=== PATIENT | male | born 1950 | race Caucasian/White ===

== ENCOUNTER 2019-09-28 08:06 | Outpatient (RCR) | payer MEDICARE | END 2019-09-28 14:04 | disposition home or self-care (01) | LOC: PREOP 08:06 | PROVIDERS: ATTEND Surgery | DX: Z01.812 Encounter for preprocedural laboratory examination (principal); Z20.828 Contact with and (suspected) exposure to other viral communicable diseases; R19.5 Other fecal abnormalities | CPT/HCPCS: 87635 ==

== ENCOUNTER 2019-10-03 10:24 | Day surgery (SDC) | payer MEDICARE ==
[~2019-10-03] VITALS: Ht 180.3 cm; Wt 90.8 kg
[2019-10-03] MEDS ORDERED: LACTATED RINGERS 1,000 ML IV ONE (10:32)
[2019-10-03] MEDS ORDERED: LACTATED RINGERS 1,000 ML IV STA (10:32)
--- NOTE | 2019-10-03 10:39 | Progress Note-Pre Operative ---
Pre-Operative Progress Note H&P Reviewed The H&P was reviewed, patient examined and no changes noted. Date Seen by Provider: Oct 03, 2019 Time Seen by Provider: 10: Date H&P Reviewed: Oct 03, 2019 Time H&P Reviewed: 10:30 Pre-Operative Diagnosis: cologaurd positive KADIE CLAY MD Oct 03, 2019 10:39
--- NOTE | 2019-10-03 10:40 | Discharge Inst-Surgical ---
D/C Lap Instructions-DANNA Follow Up Activity as tolerated High Fiber Diet 25g or more per day Avoid Alcohol, Caffeine, Spicy [place] and Acid foods. Drink 64 fluid oz or more of fluids per day. Symptoms to Report: Fever over 101 degree F, Nausea/Vomiting If any problems/questions: Contact your physician or go to Emergency Room KADIE CLAY MD Oct 03, 2019 10:40
[2019-10-03] MEDS ORDERED: ACETAMINOPHEN 325 MG TABLET PO PRN (10:45)
[2019-10-03] MEDS ORDERED: LIDOCAINE JELLY 2% 6 ML SYRINGE MM PRN (10:45)
[2019-10-03] MEDS ORDERED: ONDANSETRON 4 MG/2 ML (SDV) Z0FRAN IVP PRN (10:45)
[2019-10-03] MEDS ORDERED: morphine INJ 10 MG/ML 1ML (SYR OR VIAL) IVP PRN ×2 (10:45)
[2019-10-03] MEDS ORDERED: HYDROcodone/APAP 5 MG/325 MG (LORTAB) TAB PO PRN (10:45)
[2019-10-03] MEDS ORDERED: MIDAZOLAM 2 MG/2 ML (VERSED) VIAL ONE (10:50)
[2019-10-03] MEDS ORDERED: proPOfol 200 MG/20 ML (DIPRIVAN) VIAL IV ONE (10:50)
[2019-10-03 10:52] VITALS: BP 103/73
[2019-10-03] MEDS ORDERED: BROM2.5T4 PO (11:02)
[2019-10-03] MEDS ORDERED: RT-ALBUINH IH (11:02)
[2019-10-03] MEDS ORDERED: FOLI1TAB24 PO (11:03)
[2019-10-03] MEDS ORDERED: MMT17NA NS (11:03)
--- OUTSIDE RECORDS SUMMARY | 2019-10-03 11:18 | XMS REPORT | Continuity of Care Document ---
Author Organization Unknown Address Unknown Phone Unavailable Allergies There is no data. Medications There is no data. Problems Date Dx Coded Attending Type Code Diagnosis Diagnosed By 09/28/2019 KADIE CLAY MD Ot R19.5 OTHER FECAL ABNORMALITIES 09/28/2019 KADIE CLAY MD Ot Z01.81 2 ENCOUNTER FOR PREPROCEDURAL LABORATORY E 09/28/2019 KADIE CLAY MD Ot Z20.82 8 CONTACT W AND EXPOSURE TO OTH VIRAL COMM Procedures There is no data. Results Test Result Range Coronavirus SARS-CoV-2 SO 2018 - 0 12:51 Coronavirus Ab [Units/volume] in Serum Negative Negative Encounters ACCT No. Visit Date/Time Discharge Status Pt. Type Provider Facility Loc./Unit Complaint [id number] 09/28/2019 08:06:00 020 14:04:00 DIS Outpatient KADIE CLAY MD [facility] PREOP COLONOSCOPY [id number] 10/08/2019 08:00:00 P EN Preadmit IDRIS POZO APRN Via [facility] RT DYSPNEA [id number] 10/03/2019 10:24:[address] Outpatient KADIE CLAY MD [facility] [place] ENDO SCREENING/+OCCULT BLOOD IN S TOOL
[2019-10-03] MEDS ORDERED: LIDOCAINE JELLY 2% 6 ML SYRINGE ONE (11:32)
[2019-10-03 12:05] VITALS: BP 98/59
[2019-10-03 12:10] VITALS: BP 110/65
--- NOTE | 2019-10-03 12:16 | Progress Note-Post Operative ---
Post-Operative Progess Note Surgeon (s)/Issuing Operator (s) Surgeon KADIE CLAY MD Issuing Operator: none Pre-Operative Diagnosis cologaurd positive Post-Operative Diagnosis chronic stage 2 ext and int hemorrhoids, large sessile polyp ascending colon(1cm). Procedure & Operative Findings Date of Procedure 10/03/19 Procedure Performed/Findings Colonoscopy with bx and submucosal injection. Anesthesia Type mac Estimated Blood Loss Estimated blood loss (mL): minimal Specimens/Packing Specimens Removed asc colon polyp KADIE CLAY MD Oct 03, 2019 12:16
[2019-10-03 12:35] VITALS: BP 124/88
[2019-10-03 12:50] VITALS: BP 124/88
--- NOTE | 2019-10-03 13:26 | Anesthesia-General Post-Op ---
MAC Patient Condition Mental Status/LOC: Same as Preop Cardiovascular: Satisfactory Nausea/Vomiting: Absent Respiratory: Satisfactory Pain: Controlled Complications: Absent Post Op Complications Complications None Follow Up Care/Instructions Patient Instructions None needed. Anesthesiology Discharge Order Discharge Order Patient was seen after the procedure and he was doing well, no complaints, stable vital signs, no apparent adverse anesthesia problems. REJI CHAND DO Oct 03, 2019 13:26
--- NOTE | 2019-10-03 20:34 | OPERATIVE REPORT ---
DATE OF SERVICE: 10/03/2019 ATTENDING PRIMARY CARE PHYSICIAN: Christophe Smart MD PREOPERATIVE DIAGNOSIS: Positive Cologuard test. POSTOPERATIVE DIAGNOSIS: Chronic stage II external and internal hemorrhoids, large sessile polyp of the ascending colon approximately 1 cm in size. PROCEDURE: EGD with biopsy and submucosal injection. SURGEON: Kadie Clay MD ANESTHESIA: Monitored anesthesia care. ESTIMATED BLOOD LOSS: Minimal. FINDINGS: Chronic stage II external and internal hemorrhoids, large sessile polyp of the ascending colon approximately 1 cm in size. DISPOSITION: The patient tolerated the procedure well. INDICATIONS: The patient is a 69-year-old male who was referred over to us for a positive Cologuard test. His last colonoscopy was greater than 20 years ago and reported this to be normal. He does have some risk factors including smoking 1.5 packs of cigarettes a day for the past 44 years as well as hard alcohol including 4 to 5 drinks daily. He does not report any family history of colon cancer, does not report any red blood per rectum nor any dark tarry stools. DESCRIPTION OF PROCEDURE: The patient was brought to the endoscopy suite, laid in the left lateral decubitus position. After adequate IV pain and stated medications and monitored anesthesia care, a digital rectal examination was performed. Chronic stage II external and internal hemorrhoids were identified, which were not actively edematous nor inflamed and no bleeding. Normal sphincter tone was felt and there were no palpable masses. Prostate gland was palpable and appeared normal. The endoscope was then intubated and anus and rectum gently insufflated. The endoscope was then advanced to the valves of [place] of the rectum with no polyps or any neoplasms identified. Through the sigmoid colon, no diverticulosis identified. The endoscope was then advanced through the remainder of the descending, transverse and ascending colon. At the ascending colon, a large sessile polyp was identified approximately 1 cm in size. This also seemed to be ulcerated. Multiple biopsies were taken with forceps and electrocautery with visualization of good hemostasis. We then proceeded with submucosal injection around the lesion using black ink. The endoscope was then advanced through the remainder of the ascending colon to the cecum, which appeared normal. The endoscope was then slowly withdrawn while taking a second look and suctioning of residual air with no additional findings. The patient tolerated the procedure well. We will await the biopsy results; however, due to the size and characteristics of the lesion. The lesion being greater than 1 cm and also being sessile in nature, has a 40% chance of harboring or developing into an adenocarcinoma. We will discuss these findings with him in the office and see if he would like to proceed with early followup colonoscopy versus resection of the affected portion of the colon. Job ID: [id number] DocumentID: [id number] Dictated Date: 10/03/2019 12:12:25 Battery Assembler Date: 10/03/2019 20:33:37 Dictated By: KADIE CLAY MD
== END 2019-10-03 12:50 | disposition home or self-care (01) ==
LOC: ENDO 10:24
PROVIDERS: ATTEND Surgery
DX: C18.2 Malignant neoplasm of ascending colon (principal); K64.1 Second degree hemorrhoids; F17.210 Nicotine dependence, cigarettes, uncomplicated; J44.9 Chronic obstructive pulmonary disease, unspecified; G47.33 Obstructive sleep apnea (adult) (pediatric); Z79.899 Other long term (current) drug therapy

== ENCOUNTER → 2019-10-08 | Outpatient (CLI) | payer MEDICARE ==
[~2019-10-08] MED LIST: BROM2.5T4 PO; FOLI1TAB24 PO; MMT17NA NS; RT-ALBUINH IH; RT-ALBUTEROL SULF 2.5 MG/3 ML PRE-MIX VIAL INH ONE
[2019-10-08 08:20] LABS: ABG BASE EXCESS 0.6 MMOL/L (-2.5-2.5); ABG OXYGEN SATURATION 98 % (94-100); ABG PCO2 41 MMHG (35-45); ABG PO2 83 MMHG (79-93); ABG TCO2 26.2 MMOL/L (21.0-31.0)
[2019-10-08 08:22] LABS: ALLENS TEST YES-POS; INSPIRED O2 ROOM AIR; PATIENT TEMP 36.9; VENTILATOR NO
== END ==
LOC: RT 07:34
PROVIDERS: ATTEND Nurse Practitioner Family
DX: J44.9 Chronic obstructive pulmonary disease, unspecified (principal); J30.9 Allergic rhinitis, unspecified; Z72.0 Tobacco use
CPT/HCPCS: 36600; 82805; 94060; 94726; 94729

== ENCOUNTER → 2019-10-15 | Outpatient (CLI) | payer MEDICARE ==
[~2019-10-15] MED LIST changes: +HOLD METFORMIN - RECEIVED CONTRAST 20 ML VIAL IV SCH; +IOHEXOL 350 MG/ML 100 ML (OMNIPAQUE 350) VIAL IV ONE; +NS 100 ML (IVPB) BAG IV ONE; -RT-ALBUTEROL SULF 2.5 MG/3 ML PRE-MIX VIAL INH ONE
[2019-10-15 08:26] LABS: CREATININE SERUM 0.71 MG/DL (0.60-1.30); GFR ESTIMATED > 60
[2019-10-15 08:27] LABS: BUN/CREATININE RATIO 8
--- NOTE | 2019-10-15 08:39 | Diagnostic Imaging Report ---
INDICATION: COPD. TIME OF EXAM: 8:18 AM No prior studies are available for comparison. Heart size is normal. Lungs are hyperinflated consistent with COPD. No infiltrates are identified. No effusion or pneumothorax seen. IMPRESSION: COPD. No acute feature is detected. Dictated by: Dictated on workstation # [id number]
--- NOTE | 2019-10-15 09:27 | Diagnostic Imaging Report ---
PROCEDURE: CT chest with contrast, CT abdomen and pelvis with and without contrast. TECHNIQUE: Pre and post intravenous contrast axial imaging of the abdomen and pelvis and post contrast axial imaging of the chest were performed. Auto Exposure Controls were utilized during the CT exam to meet ALARA standards for radiation dose reduction. INDICATION: Recently diagnosed colon carcinoma. COMPARISON: No prior studies are available for comparison. FINDINGS: CT CHEST: No axillary lymphadenopathy is detected. No mediastinal or hilar lymphadenopathy is detected. No pericardial or pleural fluid is detected. Significant emphysematous changes are identified throughout both lungs. No infiltrate, nodule, or mass is identified. IMPRESSION: Severe COPD. No thoracic lymphadenopathy or evidence of pulmonary metastatic disease is identified. CT ABDOMEN AND PELVIS: No discrete liver mass is detected. There are several small stones within the gallbladder. No biliary ductal dilatation is seen. The pancreas demonstrates calcification in the pancreatic head but is otherwise unremarkable. The spleen is unremarkable. The right adrenal gland is unremarkable. There is some mild nodular enlargement of the left adrenal gland. The kidneys are unremarkable. There is no hydronephrosis. The aorta is heavily calcified but non-aneurysmal. No central retroperitoneal or mesenteric lymphadenopathy is seen. The bowel loops appear to be of normal caliber. There does appear to be some questionable wall thickening involving the ascending colon. No free fluid or fluid collection is identified. The bladder is unremarkable. No pelvic lymphadenopathy is seen. The bony structures are unremarkable. IMPRESSION: 1. Cholelithiasis. 2. No evidence of abdominal or pelvic lymphadenopathy or metastatic disease. There is some questionable wall thickening of the ascending colon. No other significant abnormality is detected. Dictated by: Dictated on workstation # [id number]
== END ==
LOC: RAD 07:40
PROVIDERS: ATTEND Surgery
DX: C18.9 Malignant neoplasm of colon, unspecified (principal); J44.9 Chronic obstructive pulmonary disease, unspecified; K80.20 Calculus of gallbladder without cholecystitis without obstruction
CPT/HCPCS: 36415; 71046; 71260; 74178; 82378; 82565; 84520

== ENCOUNTER → 2019-10-18 | Outpatient (CLI) | payer MEDICARE ==
[~2019-10-18] VITALS: Ht 180 cm; Wt 83.0 kg
[~2019-10-18] MED LIST changes: +CATHETER FLUSH 10 ML SYR IV PRN; -HOLD METFORMIN - RECEIVED CONTRAST 20 ML VIAL IV SCH; -IOHEXOL 350 MG/ML 100 ML (OMNIPAQUE 350) VIAL IV ONE; -NS 100 ML (IVPB) BAG IV ONE; +REGADENOSON 0.4 MG/5 ML SYR (LEXISCAN) IV ONE
[2019-10-18 15:15] VITALS: BP 159/104
--- NOTE | 2019-10-18 15:15 | Cardiology Stress Test Report ---
Stress Test Report Type of NM Stress Test: Test Type: LEXISCAN 0.4MG/5ML Date of Procedure/Referring: Date of Procedure: Oct 18, 2019 PCP Ania Galvin Aprn Admitting Physician Christophe Smart MD Indications: Atrial fibrillation Baseline Heart Rate: 64 Baseline Blood Pressure: Blood Pressure Systolic: 159 Blood Pressure Diastolic: 104 Summary & Conclusion: Summary: The patient was brought to the stress lab after informed consent was taken. Stress test was performed according to the Lexiscan protocol. 0.4 mg of IV Lexiscan was given. Low-grade exercise was performed. Baseline EKG showed sinus rhythm at 64 BPM, blood pressure 159/104 mmHg, maximum heart rate of 81 bpm, blood pressure 181/93 mmHg. Patient did not have any chest pain, arrhythmias or ST segment changes during the stress test. 10.58 mCi of Myoview were given for rest imaging and 32.6 mCi of Myoview given for stress imaging. Transient ischemic dilatation score 1.02, EF 71 percent. Normal wall motion. Normal myocardial perfusion imaging during rest and stress. Conclusion: Pharmacological stress test was negative for ischemia. Normal LV function with no wall motion abnormalities. Normal myocardial perfusion imaging during rest and stress. Vane BHATT MD Oct 18, 2019 15:15
== END ==
LOC: CARD 08:00
PROVIDERS: ATTEND Nurse Practitioner Family
DX: I48.0 Paroxysmal atrial fibrillation (principal)
CPT/HCPCS: 78452; 93017; A9502

== ENCOUNTER 2019-12-03 05:33 | Outpatient (CLI) | payer MEDICARE ==
[~2019-12-03] VITALS: Ht 180.3 cm; Wt 90.8 kg
[~2019-12-03 05:33] MED LIST changes: -CATHETER FLUSH 10 ML SYR IV PRN; -REGADENOSON 0.4 MG/5 ML SYR (LEXISCAN) IV ONE
[2019-12-03] MEDS ORDERED: CARV12.53 PO (14:09)
[2019-12-03] MEDS ORDERED: DOXA2TAB2 PO (14:09)
[2019-12-03] MEDS ORDERED: FLUT1BLS3 IH (14:09)
[2019-12-03] MEDS ORDERED: FORM20VI IH (14:09)
== END 2019-12-03 15:05 ==
LOC: PREOP 05:33
PROVIDERS: ATTEND Surgery
DX: Z01.818 Encounter for other preprocedural examination (principal); C18.9 Malignant neoplasm of colon, unspecified; Z20.828 Contact with and (suspected) exposure to other viral communicable diseases

== ENCOUNTER 2019-12-06 11:45 | Inpatient (IN) | payer MEDICARE ==
[2019-12-06] VITALS (8 sets, daily range): BP systolic 121–150; BP diastolic 69–84
[~2019-12-06] VITALS: Ht 180.3 cm; Wt 110.3 kg
[~2019-12-06 11:45] MED LIST changes: +CARV12.53 PO; +DOXA2TAB2 PO; +FLUT1BLS3 IH; +FORM20VI IH
[2019-12-06] MEDS ORDERED: HEParin (CENTRAL IV FLUSH) 500 UNIT/5 ML SYR ONE (12:23)
[2019-12-06] MEDS ORDERED: BUP/EPI 0.5% 1:200,000 (MARCAINE) 10ML VIAL IJ ONE (12:23)
[2019-12-06] MEDS ORDERED: ceFAZolin 2 GM IV Premixed 50 ML IV ONE (13:00)
[2019-12-06] MEDS ORDERED: metroNIDAZOLE 500MG/100ML IVPB 100 ML IV ONE (13:00)
--- OUTSIDE RECORDS SUMMARY | 2019-12-06 13:06 | XMS REPORT | Continuity of Care Document ---
Author Organization Unknown Address Unknown Phone Unavailable Allergies Active Description Code Type Severity Reaction Onset Reported/Identified Relationship to Patient Clinical Status Yes No Known Allergies [id number] Drug Allergy Unknown N/A 10/03/2019 Medications There is no data. Problems Date Dx Coded Attending Type Code Diagnosis Diagnosed By 09/28/2019 KADIE CLAY MD, Ot R19.5 OTHER FECAL ABNORMALITIES 09/28/2019 KADIE CLAY MD, Ot Z01.81 2 ENCOUNTER FOR PREPROCEDURAL LABORATORY E 09/28/2019 KADIE CLAY MD, Ot Z20.82 8 CONTACT W AND EXPOSURE TO OTH VIRAL COMM 10/03/2019 KADIE CLAY MD Ot C18.2 MALIGNANT NEOPLASM OF ASCENDING COLON 10/03/2019 KADIE CLAY MD Ot F17.21 0 NICOTINE DEPENDENCE, CIGARETTES, UNCOMPL 10/03/2019 KADIE CLAY MD Ot G47.33 OBSTRUCTIVE SLEEP APNEA (ADULT) (PEDIATR 10/03/2019 KADIE CLAY MD Ot J44.9 CHRONIC OBSTRUCTIVE PULMONARY DISEASE, U 10/03/2019 KADIE CLAY MD Ot K64.1 SECOND DEGREE HEMORRHOIDS 10/03/2019 KADIE CLAY MD Ot Z79.89 9 OTHER DETENTION (CURRENT) DRUG THERAPY 10/05/2019 KADIE CLAY MD Ot C18.2 MALIGNANT NEOPLASM OF ASCENDING COLON 10/05/2019 KADIE CLAY MD Ot F17.21 0 NICOTINE DEPENDENCE, CIGARETTES, UNCOMPL 10/05/2019 KADIE CLAY MD Ot G47.33 OBSTRUCTIVE SLEEP APNEA (ADULT) (PEDIATR 10/05/2019 KADIE CLAY MD Ot J44.9 CHRONIC OBSTRUCTIVE PULMONARY DISEASE, U 10/05/2019 KADIE CLAY MD Ot K64.1 SECOND DEGREE HEMORRHOIDS 10/05/2019 KADIE CLAY MD Ot Z79.89 9 OTHER FARM SUPERVISOR (CURRENT) DRUG THERAPY 10/08/2019 KADIE CLAY MD, Ot C18.2 MALIGNANT NEOPLASM OF ASCENDING COLON 10/08/2019 KADIE CLAY MD Ot F17.21 0 NICOTINE DEPENDENCE, CIGARETTES, UNCOMPL 10/08/2019 KADIE CLAY MD Ot G47.33 OBSTRUCTIVE SLEEP APNEA (ADULT) (PEDIATR 10/08/2019 KADIE CLAY MD, Ot J44.9 CHRONIC OBSTRUCTIVE PULMONARY DISEASE, U 10/08/2019 KADIE CLAY MD Ot K64.1 SECOND DEGREE HEMORRHOIDS 10/08/2019 KADIE CLAY MD Ot Z79.89 9 OTHER FARM SUPERVISOR (CURRENT) DRUG THERAPY 10/11/2019 IDRIS POZO ASSISTANT CONSTRUCTION SUPERINTENDENT Ot J30.9 ALLERGIC RHINITIS, UNSPECIFIED 10/11/2019 JUANA POZOINE E ASSISTANT CONSTRUCTION SUPERINTENDENT Ot J44.9 CHRONIC OBSTRUCTIVE PULMONARY DISEASE, U 10/11/2019 NOHELIA IDRIS E ASSISTANT CONSTRUCTION SUPERINTENDENT Ot Z72.0 TOBACCO USE 10/15/2019 IDRIS POZO E ASSISTANT CONSTRUCTION SUPERINTENDENT Ot J30.9 ALLERGIC RHINITIS, UNSPECIFIED 10/15/2019 IDRIS POZO E ASSISTANT CONSTRUCTION SUPERINTENDENT Ot J44.9 CHRONIC OBSTRUCTIVE PULMONARY DISEASE, U 10/15/2019 JUANA POZOINE E ASSISTANT CONSTRUCTION SUPERINTENDENT Ot Z72.0 TOBACCO USE 10/15/2019 IDRIS POZO ASSISTANT CONSTRUCTION SUPERINTENDENT Ot J30.9 ALLERGIC RHINITIS, UNSPECIFIED 10/15/2019 IDRIS POZO E ASSISTANT CONSTRUCTION SUPERINTENDENT Ot J44.9 CHRONIC OBSTRUCTIVE PULMONARY DISEASE, U 10/15/2019 IDRIS POZO E ASSISTANT CONSTRUCTION SUPERINTENDENT Ot Z72.0 TOBACCO USE 10/15/2019 KADIE CLAY MD Ot C18.9 MALIGNANT NEOPLASM OF COLON, UNSPECIFIED 10/17/2019 KADIE CLAY MD Ot C18.9 MALIGNANT NEOPLASM OF COLON, UNSPECIFIED 10/17/2019 KADIE CLAY MD Ot J44.9 CHRONIC OBSTRUCTIVE PULMONARY DISEASE, U 10/17/2019 KADIE CLAY MD Ot K80.20 CALCULUS OF GALLBLADDER W/O CHOLECYSTITI 10/17/2019 IDRIS POZO ASSISTANT CONSTRUCTION SUPERINTENDENT Ot J30.9 ALLERGIC RHINITIS, UNSPECIFIED 10/17/2019 JUANA POZOINE E ASSISTANT CONSTRUCTION SUPERINTENDENT Ot J44.9 CHRONIC OBSTRUCTIVE PULMONARY DISEASE, U 10/17/2019 IDRIS POZO E ASSISTANT CONSTRUCTION SUPERINTENDENT Ot Z72.0 TOBACCO USE 10/17/2019 KADIE CLAY MD Ot C18.9 MALIGNANT NEOPLASM OF COLON, UNSPECIFIED 10/17/2019 KADIE CLAY MD Ot J44.9 CHRONIC OBSTRUCTIVE PULMONARY DISEASE, U 10/17/2019 KADIE CLAY MD Ot K80.20 CALCULUS OF GALLBLADDER W/O CHOLECYSTITI 10/18/2019 IDRIS POZO ASSISTANT CONSTRUCTION SUPERINTENDENT Ot J30.9 ALLERGIC RHINITIS, UNSPECIFIED 10/18/2019 IDRIS POZO ASSISTANT CONSTRUCTION SUPERINTENDENT Ot J44.9 CHRONIC OBSTRUCTIVE PULMONARY DISEASE, U 10/18/2019 IDRIS POZO ASSISTANT CONSTRUCTION SUPERINTENDENT Ot Z72.0 TOBACCO USE 10/18/2019 KADIE CLAY MD Ot C18.9 MALIGNANT NEOPLASM OF COLON, UNSPECIFIED 10/18/2019 KADIE CLAY MD Ot J44.9 CHRONIC OBSTRUCTIVE PULMONARY DISEASE, U 10/18/2019 KADIE CLAY MD Ot K80.20 CALCULUS OF GALLBLADDER W/O CHOLECYSTITI 10/18/2019 IDRIS POZO ASSISTANT CONSTRUCTION SUPERINTENDENT Ot J30.9 ALLERGIC RHINITIS, UNSPECIFIED 10/18/2019 IDRIS POZO ASSISTANT CONSTRUCTION SUPERINTENDENT Ot J44.9 CHRONIC OBSTRUCTIVE PULMONARY DISEASE, U 10/18/2019 IDRIS POZO ASSISTANT CONSTRUCTION SUPERINTENDENT Ot Z72.0 TOBACCO USE 10/18/2019 KADIE CLAY MD Ot C18.9 MALIGNANT NEOPLASM OF COLON, UNSPECIFIED 10/18/2019 KADIE CLAY MD Ot J44.9 CHRONIC OBSTRUCTIVE PULMONARY DISEASE, U 10/18/2019 KADIE CLAY MD Ot K80.20 CALCULUS OF GALLBLADDER W/O CHOLECYSTITI 10/21/2019 AURE FRYE APRN Ot I48.0 PAROXYSMAL ATRIAL FIBRILLATION 11/06/2019 IDRIS POZO ASSISTANT CONSTRUCTION SUPERINTENDENT Ot J30.9 ALLERGIC RHINITIS, UNSPECIFIED 11/06/2019 IDRIS POZO ASSISTANT CONSTRUCTION SUPERINTENDENT Ot J44.9 CHRONIC OBSTRUCTIVE PULMONARY DISEASE, U 11/06/2019 IDRIS POZO ASSISTANT CONSTRUCTION SUPERINTENDENT Ot Z72.0 TOBACCO USE 11/07/2019 KADIE CLAY MD Ot C18.9 MALIGNANT NEOPLASM OF COLON, UNSPECIFIED 11/07/2019 KADIE CLAY MD Ot J44.9 CHRONIC OBSTRUCTIVE PULMONARY DISEASE, U 11/07/2019 KADIE CLAY MD Ot K80.20 CALCULUS OF GALLBLADDER W/O CHOLECYSTITI 11/09/2019 MELVAAURE APRN Ot I48.0 PAROXYSMAL ATRIAL FIBRILLATION 12/05/2019 KADIE CLAY MD Ot C18.9 MALIGNANT NEOPLASM OF COLON, UNSPECIFIED 12/05/2019 KADIE CLAY MD Ot Z01.81 8 ENCOUNTER FOR OTHER PREPROCEDURAL EXAMIN 12/05/2019 KADIE CLAY MD Ot Z20.82 8 CONTACT W AND EXPOSURE TO OTH VIRAL COMM Procedures There is no data. Results Test Result Range Coronavirus SARS-CoV-2 SO 2018 - 0 12:51 Coronavirus Ab [Units/volume] in Serum Negative Negative Arterial blood gas measurement - 0 08:14 Blood pCO2 41 mm[Hg] 35-45 Blood pO2 83 mm[Hg] 79-93 Arterial blood bicarbonate measurement (moles/volume) 25 mmol/L 23-27 Arterial blood base excess by calculation 0.6 mmol /L -2.5-2.5 Arterial blood oxygen saturation measurement 98 % 94-100 * Inhaled oxygen flow rate ROOM AIR NRG Arterial blood pH measurement with patient temperature correction 7.40 7.37-7.43 Arterial blood carbon dioxide, total measurement (mole s/volume) 26.2 mmol/L 21.0-31.0 Body site LT RAD NRG Assessment of wrist artery patency prior to arterial p uncture YES-POS NRG Setting of ventilation mode NO NR G Measurement of body temperature 36.9 NRG [id number] - 10/15/19 07:56 Serum or plasma urea nitrogen measurement (mass/volume ) 6 mg/dL 7-18 Serum or plasma creatinine measurement (mass/volume) 0.71 mg/dL 0.60-1.30 Serum or plasma urea nitrogen/creatinine mass ratio 8 NRG Serum or plasma creatinine measurement w ith calculation of estimated glomerular filtration rate > NRG Serum ragweed IgE antibody assay - 10/14 07:56 [id number] <1.7 0.0-5.0 Encounters ACCT No. Visit Date/Time Discharge Status Pt. Type Provider Facility Loc./Unit Complaint [id number] 12/03/2019 05:33:00 020 15:05:00 DIS Outpatient KADIE CLAY MD Via [facility] PREOP COLON CANCER [id number] 10/18/2019 08:00:00 23:59:59 CLS Outpatient AURE FRYE APRN Via [facility] CARD AFIB [id number] 10/15/2019 07:40:00 23:59:59 CLS Outpatient KADIE CLAY MD Via [facility] RAD COLON CA,COPD [id number] 10/08/2019 07:34:00 23:59:59 CLS Outpatient IDRIS POZO APRN [facility] RT DYSPNEA [id number] 10/03/2019 10:24:00 12:50:00 DIS Outpatient KADIE CLAY MD Via [facility] ENDO SCREENING/+OCCULT BLOOD IN STOOL [id number] 09/28/2019 08:06:00 14:04:00 DIS Outpatient KADIE CLAY MD [facility] PREOP COLONOSCOPY [id number] 12/06/2019 11:45:00 P EN Preadmit KADIE CLAY MD [facility]
[2019-12-06] MEDS ORDERED: RT-ALBUTEROL SULF 2.5 MG/3 ML PRE-MIX VIAL INH ONE (13:15)
[2019-12-06] MEDS: LACTATED RINGERS 1,000 ML IV PRN ×2 (13:24→17:02)
[2019-12-06 13:36] LABS: BASOPHILS % (AUTO) 1 % (0-10); EOSINOPHILS # (AUTO) 0.1 10^3/uL (0.0-0.3); EOSINOPHILS % (AUTO) 2 % (0-10); HEMATOCRIT 50 % (40-54); LYMPHOCYTES # (AUTO) 1.2 X 10^3 (1.0-4.0); LYMPHOCYTES % (AUTO) 19 % (12-44); MEAN CORPUSCULAR HEMOGLOBIN 37 PG (25-34); MEAN CORPUSCULAR HGB CONC 34 G/DL (32-36); MEAN CORPUSCULAR VOLUME 107 FL (80-99); MEAN PLATELET VOLUME 9.8 FL (7.4-10.4); MONOCYTES # (AUTO) 0.6 X 10^3 (0.0-1.0); MONOCYTES % (AUTO) 9 % (0-12); NEUTROPHILS # (AUTO) 4.4 X 10^3 (1.8-7.8); NEUTROPHILS % (AUTO) 69 % (42-75); PLATELET COUNT 146 10^3/uL (130-400); RED CELL DISTRIBUTION WIDTH 13.9 % (10.0-14.5); WHITE BLOOD COUNT 6.3 10^3/uL (4.3-11.0)
[2019-12-06] MEDS ORDERED: LORA-404 PO (13:49)
[2019-12-06] MEDS ORDERED: NS IV 1000 ML 1,000 ML IV SCH (14:38)
--- NOTE | 2019-12-06 14:38 | Progress Note-Pre Operative ---
Pre-Operative Progress Note H&P Reviewed The H&P was reviewed, patient examined and no changes noted. Date Seen by Provider: Dec 06, 2019 Time Seen by Provider: 14:00 Date H&P Reviewed: Dec 06, 2019 Time H&P Reviewed: 14:00 Pre-Operative Diagnosis: right colon cancer KADIE CLAY MD Dec 06, 2019 14:38
[2019-12-06] MEDS ORDERED: diphenhydrAMINE 50 MG/ML INJ (BENADRYL) IVP PRN (14:45)
[2019-12-06] MEDS ORDERED: diphenhydrAMINE 50 MG/ML INJ (BENADRYL) IV PRN (14:45)
[2019-12-06] MEDS ORDERED: METOCLOPRAMIDE INJ 10 MG/2 ML (REGLAN) IV PRN (14:45)
[2019-12-06] MEDS ORDERED: oxyCODONE 5 MG/5 ML ORAL SOLN (roxiCODONE) 5 ML UDC PO PRN (14:45)
[2019-12-06] MEDS ORDERED: ONDANSETRON 4 MG/2 ML (SDV) Z0FRAN IV PRN (14:45)
[2019-12-06] MEDS ORDERED: NALOXONE 0.4 MG/ML 1 ML (NARCAN) VIAL IV PRN (14:45)
[2019-12-06] MEDS ORDERED: ONDANSETRON 4 MG/2 ML (SDV) Z0FRAN ONE (16:04)
[2019-12-06] MEDS ORDERED: fentaNYL INJECTION 100 MCG/2 ML AMP ONE ×2 (16:04→18:21)
[2019-12-06] MEDS ORDERED: LIDOCAINE PF 2% 5 ML (XYLOCAINE) VIAL ONE (16:04)
[2019-12-06] MEDS ORDERED: proPOfol 200 MG/20 ML (DIPRIVAN) VIAL IV ONE (16:04)
[2019-12-06] MEDS ORDERED: ROCURONIUM 10 MG/ML 5 ML SYRINGE IV ONE ×2 (16:04→17:02)
[2019-12-06] MEDS ORDERED: MIDAZOLAM 2 MG/2 ML (VERSED) VIAL ONE (16:05)
[2019-12-06] MEDS ORDERED: SEVOFLURANE (ULTANE) 15 ML INHAL SOLN ONE ×7 (17:03→18:44)
--- NOTE | 2019-12-06 18:37 | Progress Note-Post Operative ---
Post-Operative Progess Note Surgeon (s)/Nut Grinder (s) Surgeon KADIE CLAY MD Nut Grinder: manjula stuart CERTIFIED WELLNESS PROGRAM COORDINATOR Pre-Operative Diagnosis right colon cancer Post-Operative Diagnosis same Procedure & Operative Findings Date of Procedure 12/06/19 Procedure Performed/Findings laparoscopic right hemicolectomy. left subclavian central venous catheter. Anesthesia Type get Estimated Blood Loss Estimated blood loss (mL): minimal Specimens/Packing Specimens Removed right colon KADIE CLAY MD Dec 06, 2019 18:37
[2019-12-06] MEDS ORDERED: ONDANSETRON 4 MG/2 ML (SDV) Z0FRAN IVP PRN (18:45)
[2019-12-06] MEDS ORDERED: MEPERIDINE (DEMEROL) INJ 50 MG/ML IVP ONE (18:45)
[2019-12-06] MEDS ORDERED: morphine INJ 10 MG/ML 1ML (SYR OR VIAL) IVP ONE (18:45)
[2019-12-06] MEDS ORDERED: morphine INJ 10 MG/ML 1ML (SYR OR VIAL) ONE (19:02)
--- NOTE | 2019-12-06 19:08 | Diagnostic Imaging Report ---
INDICATION: Central line placement. COMPARISON: 10/15/2019. EXAMINATION: Single view of the chest was obtained. FINDINGS: A left subclavian central venous catheter is in place. There is no pneumothorax. Tip of the catheter is in the SVC. Basilar infiltrates are present. IMPRESSION: Well-positioned central venous catheter. No pneumothorax. Dictated by: Dictated on workstation # [id number]
--- NOTE | 2019-12-06 19:37 | NUR ---
DESHAWN GIRALDO admitted to room 408-1, with an admitting diagnosis of POST OP HEMICOLECTOMY, on 12/06/19 from [facility] via [facility], accompanied by STAFF. DESHAWN GIRALDO introduced to surroundings, call light, bed controls, phone, TV, temperature control, lights, meal times, smoking policy, visitor policy, side rail policy, bathrooms and showers. Patient Rights given to patient in the handbook.DESHAWN GIRALDO verbalizes understanding that [facility] is not responsible for the loss or damage to any personal effects or valuables that are kept in the patients posession during their hospitalization.
[2019-12-06] MEDS: METOCLOPRAMIDE INJ 10 MG/2 ML (REGLAN) IVP SCH ×2 (20:21→23:49)
[2019-12-06] MEDS: ONDANSETRON 4 MG/2 ML (SDV) Z0FRAN IVP SCH ×2 (20:21→23:49)
[2019-12-06] MEDS: 1/2 NS W/KCL 20 MEQ/L 1,000 ML IV SCH (20:21)
[2019-12-06] MEDS: fentaNYL INJECTION 1,000 MCG in NS (IVPB) 80 ML IV SCH (20:32)
[2019-12-06] MEDS: ENOXAPARIN 30 MG/0.3 ML (LOVENOX) SYR SC SCH (20:53)
[2019-12-06] MEDS: RT-ALBUTEROL SULF 2.5 MG/3 ML PRE-MIX VIAL INH SCH (21:12)
[2019-12-06] MEDS: ceFAZolin 2 GM IV Premixed 50 ML IV SCH (23:49)
[2019-12-06] MEDS: PANTOPRAZOLE 40 MG (PROTONIX) VIAL IV SCH (23:49)
[2019-12-06] MEDS: metroNIDAZOLE 500MG/100ML IVPB 100 ML IV SCH (23:49)
[2019-12-07] VITALS: BP 119/73
[2019-12-07] MEDS: RT-ALBUTEROL SULF 2.5 MG/3 ML PRE-MIX VIAL INH SCH ×6 (02:09→21:13)
[2019-12-07 04:00] VITALS: BP 129/79
[2019-12-07] MEDS: 1/2 NS W/KCL 20 MEQ/L 1,000 ML IV SCH ×2 (05:34→11:50)
[2019-12-07 05:35] LABS: HEMOGLOBIN 15.6 G/DL (13.3-17.7); MEAN PLATELET VOLUME 10.1 FL (7.4-10.4); WHITE BLOOD COUNT 10.9 10^3/uL (4.3-11.0)
[2019-12-07] MEDS: ONDANSETRON 4 MG/2 ML (SDV) Z0FRAN IVP SCH ×2 (05:39→12:32)
[2019-12-07] MEDS: METOCLOPRAMIDE INJ 10 MG/2 ML (REGLAN) IVP SCH ×2 (05:39→12:31)
--- NOTE | 2019-12-07 05:43 | OPERATIVE REPORT ---
DATE OF SERVICE: 12/06/2019 ATTENDING PRIMARY CARE PHYSICIAN: Christophe Smart MD PREOPERATIVE DIAGNOSIS: Right colon cancer. POSTOPERATIVE DIAGNOSIS: Right colon cancer. PROCEDURE: Laparoscopic right hemicolectomy, placement of left subclavian central venous catheter. SURGEON: Attila Duarte MD BREAKER OFF: Ren Campa APRN ANESTHESIA: General endotracheal. ESTIMATED BLOOD LOSS: 150 mL. FINDINGS: Markings from previous colonoscopy appear to coincide with a tumor at the hepatic flexure. DISPOSITION: The patient tolerated the procedure well. INDICATIONS: The patient is a 69-year-old male who was referred over to us for a positive Cologuard test. His last colonoscopy was greater than 20 years ago. He reports that he does have some constipation as well. He underwent a colonoscopy on 10/03/2019 and was found to have a large sessile polyp greater than 1 cm in size and this was biopsied and did come back as at least intramucosal carcinoma. DESCRIPTION OF PROCEDURE: The patient was brought to the operating room, laid supine on the table. After adequate IV pain and sedative medications and general endotracheal intubation, the chest and neck were prepped and draped in standard surgical fashion. Left subclavian vein was then cannulated with drawing of venous blood. A guidewire was then inserted without any resistance. A skin incision was then made using 11 blade and a tract was then created using a venous dilator and through this opening, a triple lumen central venous catheter was placed over the guidewire using the Seldinger technique. The catheter was then sutured to the skin using interrupted 3-0 silk suture. The catheter was then cleaned and covered with Op-Site. The abdomen was then prepped and draped in standard surgical fashion. The patient was placed in a modified lithotomy position. The left upper abdominal quadrant was then anesthetized using 0.5% Marcaine with epinephrine and a transverse skin incision made using a 15 blade. An 0 silk suture was applied to the medial aspect of the incision for retraction and Veress needle inserted with low opening pressure of 0 mmHg. The abdomen was then insufflated to 15 mmHg pressure. The Veress needle removed and a 5 mm XL trocar placed followed by a 5 mm 45-degree angle laparoscope visualizing the peritoneal cavity. A 4-quadrant abdominal exploration was performed. The submucosal injection markings from the previous colonoscopy revealed the lesion at approximately the hepatic flexure. We then proceeded to place a supraumbilical 10 mm port after the skin and peritoneal lining were anesthetized using 0.5% Marcaine with epinephrine and a vertical skin incision made using a 15 blade. Two right lower abdominal quadrant 5 mm ports were placed. The patient was then placed in Trendelenburg position as well as plane right side up, left side down. We then proceeded with medial to lateral dissection of the right colonic mesentery using the Sonicision with visualization of good hemostasis. A wide wedge of mesentery was taken. We proceeded into this manner until we were approximately at the mid transverse colon. The duodenum was identified and spared throughout the process. Good hemostasis was also observed. The omentum was then scored in half using the Sonicision and the gastrocolic omentum was opened as well in a similar manner as well as the hepatic flexure connective tissue fibers using the Sonicision with visualization of good hemostasis. The entire right side of the colon was free and including the terminal ileum. The supraumbilical skin incision was then extended and the right colon was brought out. We then proceeded with stapling and transection of the terminal ileum as well as the transverse colon using a ALEXANDR-75 mm stapler. We then proceeded with [id number] anastomosis. The open end was then temporarily closed using interrupted 3-0 silk sutures and the same stapler was used to staple the end with visualization of good hemostasis. The mesentery was then reapproximated using 3-0 Vicryl running suture. The colon and ileum were then placed back into the peritoneal cavity. Pneumo insufflation was achieved again and the abdomen copiously irrigated and suctioned out with visualization of good hemostasis. A 19-Palestinian Juan-Godfrey drain was then placed in the right pericolic gutter and near the anastomosis. The drain was brought out the one on the right lower abdominal quadrant port and sutured the skin using 3-0 nylon suture. The fascia to the supraumbilical incision was then closed using a #1 looped PDS suture starting superiorly and inferiorly and tied in the middle. The remaining ports removed and all skin incisions were closed using 4-0 Monocryl running subcuticular sutures. Wounds were then cleaned and covered with Dermabond. The patient tolerated the procedure well. We will admit him to the general surgical floor and proceed with a PIPE LINER for pain control as well as DVT prophylaxis with early ambulation, calf SCDs as well as Lovenox injections. Once he does have bowel function, we will start a clear liquid diet and advance as tolerated. Job ID: [id number] DocumentID: [id number] Dictated Date: 12/06/2019 18:34:35 [employer] Coxsw[employer] Date: 12/07/2019 05:42:31 Dictated By: ATTILA DUARTE MD
[2019-12-07 05:50] LABS: BUN/CREATININE RATIO 15; CALCIUM 8.6 MG/DL (8.5-10.1); CARBON DIOXIDE 19 MMOL/L (21-32); CHLORIDE 105 MMOL/L (98-107); CREATININE SERUM 0.67 MG/DL (0.60-1.30); GFR ESTIMATED > 60; GLUCOSE 84 MG/DL (70-105); SODIUM 138 MMOL/L (135-145)
[2019-12-07] MEDS: ceFAZolin 2 GM IV Premixed 50 ML IV SCH ×2 (06:39→14:49)
[2019-12-07 08:16] VITALS: BP 154/72
[2019-12-07] MEDS: SENNA W/DOCUSATE (SENOKOT S) TABLET PO SCH (08:44)
[2019-12-07] MEDS: metroNIDAZOLE 500MG/100ML IVPB 100 ML IV SCH ×2 (08:44→15:58)
[2019-12-07] MEDS: ENOXAPARIN 30 MG/0.3 ML (LOVENOX) SYR SC SCH ×2 (08:44→20:42)
--- NOTE | 2019-12-07 10:00 | Consultation - Hospitalist ---
HPI History of Present Illness: HPI/Chief Complaint Pt is a 69yoCM with a PMH of HTN and COPD who was admitted for hemicolectomy due to colon cancer. He underwent surgery yesterday and I am consulted for medical management. He is hard of hearing but what he was able to answer he states he's hungry but having pain. He is using his ACCOUNT GENERAL MANAGER and states it help. Otherwise he has not complaints. Source: patient Date Seen 12/07/19 Attending Physician Attila Duarte MD PCP Christophe Smart MD Referring Physician Dr Duarte Date of Admission Dec 06, 2019 at 12:14 Home Medications & Allergies Home Medications Reviewed patient Home Medication Reconciliation performed by pharmacy medication reconciliations battery technician and/or nursing. Patients Allergies have been reviewed. Allergies Allergies Coded Allergies No Known Allergies (Unverified Allergy, Unknown, 10/03/19) Past Dleoqxm-Ichvfr-Ovnxsm Hx Past Med/Social Hx: Reviewed Nursing Past Med/Soc Hx Patient Social History Alcohol Use: Regular Use Number of Drinks Today: 0 Alcohol Beverage of Choice: Whiskey Recreational Drug Use: No Smoking Status: Current Everyday Smoker Type Used: Cigarettes 2nd Hand Smoke Exposure: No Physical Abuse Screen: No Sexual Abuse: No Recent Foreign Travel: No Contact w/other who traveled: No Recent Hopitalizations: No Recent Infectious Disease Expo: No Immunizations Up To Date Date of Influenza Vaccine: Jan 23, 2019 Seasonal Allergies Seasonal Allergies: No Past Medical History Surgeries: Orthopedic Currently Using CPAP: Yes Currently Using BIPAP: No Cardiac: Atrial Fibrillation Cancer: Colon History of Blood Disorders: No Family History Reviewed Nursing Family Hx Patient reports no known family medical history. No Pertinent Family Hx Review of Systems Constitutional: no symptoms reported EENTM: no symptoms reported Respiratory: No short of breath Cardiovascular: No chest pain Gastrointestinal: abdominal pain Physical Exam Physical Exam Vital Signs Vital Signs - First Documented Capillary Refill : Less Than 3 SecondsLess Than 3 Seconds Height, Weight, BMI Height: '" Weight: lbs. oz. kg; 27.93 BMI Method: General Appearance: No Apparent Distress, WD/WN HEENT: PERRL/EOMI, Moist Mucous Membranes; No Scleral Icterus (L), No Scleral Icterus (R) Respiratory: Lungs Clear, No Accessory Muscle Use, No Respiratory Distress Cardiovascular: Regular Rate, Rhythm, No Murmur Gastrointestinal: Abnormal Bowel Sounds (quiet), Other (FRANK drain with sangui nous fluid in it and ooze on surgical dressing) Extremity: Normal Capillary Refill, No Calf Tenderness, No Pedal Edema Neurologic/Psychiatric: Alert, Oriented x3, Normal Mood/Affect Results Results/Procedures Labs Laboratory Tests 12/06/19 13:25 12/07/19 04:55 Patient resulted labs reviewed. Assessment/Plan Assessment and Plan Assess & Plan/Chief Complaint Colon cancer s/p hemicolectomy ACCOUNT GENERAL MANAGER for pain control Management per primary HTN BP trending up, will resume home meds when able to PO COPD Continue home inhalers DVT ppx: Lovenox Will round prn Clinical Quality Measures DVT/VTE Risk/Contraindication: Risk Factor Score Per Nursin RFS Level Per Nursing on Admit: 4+=Very High DAYA PASTOR MD Dec 07, 2019 10:00
--- NOTE | 2019-12-07 10:17 | Progress Note ---
Subjective Date Seen by a Provider: Dec 07, 2019 Time Seen by a Provider: 10:00 Subjective/Events-last exam doing well. pain controlled. no SOB. Objective Exam Vital Signs Date Time Temp Pulse Resp B/P (MAP) Pulse Ox O2 Delivery O2 Flow Rate FiO2 12/07/19 09:01 OxyMask 2.00 12/07/19 08:16 36.3 80 18 154/72 (99) 95 Nasal Cannula 2.00 12/07/19 07:10 95 Nasal Cannula 2.00 12/07/19 05:45 18 12/07/19 04:00 37.2 74 22 129/79 (96) 94 OxyMask 3.00 12/07/19 02:10 94 OxyMask 1.00 12/07/19 00:00 36.6 77 20 119/73 (88) 98 OxyMask 3.00 12/06/19 22:54 100 OxyMask 3.00 12/06/19 21:12 100 OxyMask 3.00 12/06/19 20:32 18 12/06/19 20:24 35.6 63 17 134/76 (95) 92 OxyMask 3.00 12/06/19 20:00 OxyMask 2.00 12/06/19 19:40 OxyMask 2.00 12/06/19 19:25 36.3 26 121/74 (90) 96 OxyMask 2 12/06/19 19:25 OxyMask 2 12/06/19 19:20 22 91 Room Air 12/06/19 19:20 Room Air 12/06/19 19:10 23 144/69 (94) 98 OxyMask 1 12/06/19 19:05 OxyMask 2 12/06/19 19:00 22 150/80 (103) 98 OxyMask 6 12/06/19 18:50 OxyMask 6 12/06/19 18:50 24 123/80 (94) 99 OxyMask 6 12/06/19 18:40 24 137/77 (97) 100 OxyMask 6 12/06/19 18:36 OxyMask 6 12/06/19 18:36 36.4 24 135/84 (101) 99 OxyMask 6 12/06/19 13:30 36.3 68 22 136/84 97 Room Air 12/06/19 13:30 36.3 68 22 136/84 (101) 97 Room Air I & O 12/07/19 07:00 Intake Total 2300 ml Output Total 1180 ml Balance 1120 ml Capillary Refill : Less Than 3 SecondsLess Than 3 Seconds General Appearance: No Apparent Distress HEENT: PERRL/EOMI Neck: Full Range of Motion Respiratory: Chest Non Tender, Rhonci, Wheezing Cardiovascular: Regular Rate, Rhythm Gastrointestinal: soft, tenderness, other (inc clean/dry) Extremity: Normal Capillary Refill Neurologic/Psychiatric: Alert, Oriented x3 Skin: Normal Color Lymphatic: No Adenopathy Results Lab Laboratory Tests 12/06/19 13:25: White Blood Count 6.3, Red Blood Count 4.61, Hemoglobin 17.0, Hematocrit 50, Mean Corpuscular Volume 107H, Mean Corpuscular Hemoglobin 37H, Mean Corpuscular Hemoglobin Concent 34, Red Cell Distribution Width 13.9, Platelet Count 146, Mean Platelet Volume 9.8, Neutrophils (%) (Auto) 69, Lymphocytes (%) (Auto) 19, Monocytes (%) (Auto) 9, Eosinophils (%) (Auto) 2, Basophils (%) (Auto) 1, Neutrophils # (Auto) 4.4, Lymphocytes # (Auto) 1.2, Monocytes # (Auto) 0.6, Eosinophils # (Auto) 0.1, Basophils # (Auto) 0.0 12/06/19 20:29: Glucometer 97 12/06/19 23:43: Glucometer 93 12/07/19 04:06: Glucometer 97 12/07/19 04:55: White Blood Count 10.9, Red Blood Count 4.05L, Hemoglobin 15.6, Hematocrit 44, Mean Corpuscular Volume 108H, Mean Corpuscular Hemoglobin 39H, Mean Corpuscular Hemoglobin Concent 36, Red Cell Distribution Width 14.0, Platelet Count 158, Mean Platelet Volume 10.1, Sodium Level 138, Potassium Level 5.0, Chloride Level 105, Carbon Dioxide Level 19L, Anion Gap 14, Blood Urea Nitrogen 10, Creatinine 0.67, Estimat Glomerular Filtration Rate > 60, BUN/Creatinine Ratio 15, Glucose Level 84, Calcium Level 8.6 12/07/19 09:07: Glucometer 101 Assessment/Plan Assessment/Plan Assess & Plan/Chief Complaint s/p lap right hemicolectomy. ambulate. IS and breathing tx. await bowel fxn. Clinical Quality Measures DVT/VTE Risk/Contraindication: Risk Factor Score Per Nursin RFS Level Per Nursing on Admit: 4+=Very High KADIE CLAY MD Dec 07, 2019 10:17
--- NOTE | 2019-12-07 10:47 | Anesthesia-General Post-Op ---
General Patient Condition Mental Status/LOC: Same as Preop Cardiovascular: Satisfactory Nausea/Vomiting: Absent Respiratory: Satisfactory Pain: Controlled (Abd. Pain which is to be expected) Complications: Absent Post Op Complications Complications None Follow Up Care/Instructions Patient Instructions None needed. Anesthesia/Patient Condition Patient Condition Patient is doing well, C/O abd pain which is to be expected, stable vital signs, no apparent adverse anesthesia problems. REJI CHAND DO Dec 07, 2019 10:47
[2019-12-07] MEDS: NICOTINE 21 MG (NICODERM) PATCH TD SCH (11:10)
[2019-12-07] MEDS: oxyCODONE/APAP 5/325MG (PERCOCET 5) TABLET PO PRN ×2 (11:10→18:50)
[2019-12-07 11:40] VITALS: BP 128/74
[2019-12-07] MEDS ORDERED: HYDR-3817 PO (12:46)
--- NOTE | 2019-12-07 12:46 | Discharge Inst-Surgical ---
D/C Lap Instructions-DANNA New, Converted, or Re-Newed RX: RX on Chart Follow Up Appt in 2 weeks Activity as tolerated No driving for 24 hours No driving while on pain medications Incentive Spirometry use every 2 hours while awake High Fiber Diet 25g or more per day Avoid Alcohol, Caffeine, Spicy [place] and Acid foods. Drink 64 fluid oz or more of fluids per day. Symptoms to Report: Fever over 101 degree F, Nausea/Vomiting If any problems/questions: Contact your physician or go to Emergency Room KADIE CLAY MD Dec 07, 2019 12:46
[2019-12-07] MEDS ORDERED: METOCLOPRAMIDE INJ 10 MG/2 ML (REGLAN) IVP PRN (14:45)
[2019-12-07] MEDS ORDERED: NON-FORMULARY MEDICATION 1 EA EA (Fluticasone/Umeclidin/Vilanter (Trelegy Ellipta 100-62.5 IH SCH (15:00)
[2019-12-07 16:10] VITALS: BP 132/74
[2019-12-07] MEDS: BROMOCRIPTINE 2.5 MG PO SCH (17:33)
[2019-12-07 19:50] VITALS: BP 118/66
[2019-12-07] MEDS ORDERED: BROMOCRIPTINE MESYLATE 2.5 MG PO SCH (21:00)
[2019-12-07] MEDS ORDERED: NON-FORMULARY MEDICATION 1 EA EA (Formoterol Fumarate (Perforomist) 20 MCG) IH SCH (21:00)
[2019-12-08] VITALS (7 sets, daily range): BP systolic 114–152; BP diastolic 68–98
[2019-12-08] MEDS: RT-ALBUTEROL SULF 2.5 MG/3 ML PRE-MIX VIAL INH SCH ×3 (01:12→13:41)
[2019-12-08] MEDS: 1/2 NS W/KCL 20 MEQ/L 1,000 ML IV SCH ×3 (02:45→18:31)
[2019-12-08] MEDS: oxyCODONE/APAP 5/325MG (PERCOCET 5) TABLET PO PRN ×2 (05:01→23:25)
--- NOTE | 2019-12-08 05:40 | NUR ---
abd wound have mod amt of bloody drainage noted . cesar drain patent draining bloody drainage. uses urinal but does miss.. needs lots of encouragement to move/ reposition
[2019-12-08] MEDS: NICOTINE 21 MG (NICODERM) PATCH TD SCH (08:31)
[2019-12-08] MEDS: SENNA W/DOCUSATE (SENOKOT S) TABLET PO SCH (08:31)
[2019-12-08] MEDS: ENOXAPARIN 30 MG/0.3 ML (LOVENOX) SYR SC SCH ×2 (08:31→20:39)
[2019-12-08] MEDS: BROMOCRIPTINE 2.5 MG PO SCH ×2 (08:31→18:31)
[2019-12-08] MEDS: NICOTINE PATCH REMOVAL TP SCH (08:32)
--- NOTE | 2019-12-08 15:55 | Progress Note - Surgery ---
Subjective Time Seen by a Provider: 12:52 Subjective/Events-last exam Pt seen and examined, states his pain is getting better; used to be with any movement and breathing. Pain is now only with big movements. Pt denies any flatus or BM. He is concerned about drainage on his gown. Review of Systems General: Fatigue, Malaise Pulmonary: No Dyspnea; Cough Cardiovascular: No: Chest Pain, Palpitations Gastrointestinal: Abdominal Pain; No: Nausea, Vomiting Objective Exam Vital Signs Date Time Temp Pulse Resp B/P (MAP) Pulse Ox O2 Delivery O2 Flow Rate FiO2 12/08/19 11:33 36.4 77 15 151/75 (100) 97 Nasal Cannula 2.00 12/08/19 10:00 93 2.00 12/08/19 08:55 90 Nasal Cannula 2.00 12/08/19 08:03 36.6 84 17 128/78 (95) 90 Nasal Cannula 2.00 12/08/19 05:39 37.0 12/08/19 05:03 20 12/08/19 05:01 37.0 12/08/19 04:00 37.0 98 20 132/77 (95) 95 Nasal Cannula 2.00 12/08/19 01:13 92 Nasal Cannula 2.00 12/08/19 00:00 37.1 78 20 114/68 (83) 93 Nasal Cannula 2.00 2.00 12/07/19 21:13 90 Nasal Cannula 2.00 12/07/19 21:00 92 Nasal Cannula 2.00 12/07/19 19:50 37.1 77 17 118/66 (83) 92 Nasal Cannula 2.00 12/07/19 19:45 37.1 12/07/19 18:46 94 Nasal Cannula 2.00 12/07/19 18:05 18 12/07/19 16:10 37.0 74 17 132/74 (93) 93 Nasal Cannula 2.00 I & O 12/08/19 07:00 Intake Total 1500 ml Output Total 1545 ml Balance -45 ml Capillary Refill : Less Than 3 SecondsLess Than 3 Seconds General Appearance: No Apparent Distress, WD/WN HEENT: PERRL/EOMI, Moist Mucous Membranes; No Scleral Icterus (L), No Scleral Icterus (R) Respiratory: Lungs Clear, No Accessory Muscle Use, No Respiratory Distress Cardiovascular: Regular Rate, Rhythm, No Murmur Gastrointestinal: soft, tenderness (mostly at incision above umbilicus), other (inc clean and intact, there is scant serosanguinous drainage. pt has large amout of bruising around this area. FRANK drain has serosanguinous fluid) Extremity: Normal Capillary Refill, No Calf Tenderness, No Pedal Edema Results Lab Microbiology 12/06/19 MRSA Screen - Final, Complete MRSA not isolated Assessment/Plan Assessment/Plan Assessment/Plan s/p lap right hemicolectomy Pt told he must walk more and use the IS. Will try a dulcolax suppository today. Clinical Quality Measures DVT/VTE Risk/Contraindication: Risk Factor Score Per Nursin RFS Level Per Nursing on Admit: 4+=Very High RUBY BOWERS DO Dec 08, 2019 15:55
[2019-12-08] MEDS ORDERED: BISACODYL 10 MG SUPP (DULCOLAX) PR SCH (16:00)
[2019-12-08] MEDS: PANTOPRAZOLE 40 MG (PROTONIX) VIAL IV SCH ×2 (23:25)
[2019-12-09] MEDS: 1/2 NS W/KCL 20 MEQ/L 1,000 ML IV SCH ×2 (03:49→14:35)
[2019-12-09 04:00] VITALS: BP 136/80
[2019-12-09] MEDS: RT-ALBUTEROL SULF 2.5 MG/3 ML PRE-MIX VIAL INH PRN ×3 (04:41→14:29)
[2019-12-09 07:46] VITALS: BP 113/78
[2019-12-09] MEDS: ENOXAPARIN 30 MG/0.3 ML (LOVENOX) SYR SC SCH ×2 (08:22→20:29)
[2019-12-09] MEDS: NICOTINE 21 MG (NICODERM) PATCH TD SCH (08:22)
[2019-12-09] MEDS: NICOTINE PATCH REMOVAL TP SCH (08:22)
[2019-12-09] MEDS: oxyCODONE/APAP 5/325MG (PERCOCET 5) TABLET PO PRN ×2 (08:23→17:49)
[2019-12-09] MEDS: SENNA W/DOCUSATE (SENOKOT S) TABLET PO SCH (08:28)
[2019-12-09] MEDS: BROMOCRIPTINE 2.5 MG PO SCH ×2 (08:28→14:31)
--- NOTE | 2019-12-09 10:04 | Progress Note ---
Subjective Date Seen by a Provider: Dec 09, 2019 Time Seen by a Provider: 09:00 Subjective/Events-last exam doing well. mild exertional SOB. had BM this am. tolerating liquids. ambulating ok. Objective Exam Vital Signs Date Time Temp Pulse Resp B/P (MAP) Pulse Ox O2 Delivery O2 Flow Rate FiO2 12/09/19 08:31 97 Nasal Cannula 2.00 12/09/19 07:46 36.0 92 18 113/78 (90) 93 Nasal Cannula 2.00 12/09/19 06:06 22 12/09/19 04:00 35.8 97 18 136/80 (98) 98 Nasal Cannula 3.00 2.00 12/09/19 01:51 95 2.00 12/08/19 23:30 37.2 87 18 152/98 (116) 97 Nasal Cannula 2.00 12/08/19 22:12 98 Nasal Cannula 2.00 12/08/19 20:05 Nasal Cannula 2.00 12/08/19 20:00 36.9 78 16 138/77 (97) 98 Nasal Cannula 2.00 12/08/19 18:41 22 12/08/19 16:00 37.0 82 22 140/72 (94) 98 Nasal Cannula 2.00 12/08/19 11:33 36.4 77 15 151/75 (100) 97 Nasal Cannula 2.00 I & O 12/09/19 07:00 Intake Total 110 ml Output Total 965 ml Balance -855 ml Capillary Refill : Less Than 3 SecondsLess Than 3 Seconds General Appearance: No Apparent Distress HEENT: PERRL/EOMI Neck: Full Range of Motion Respiratory: Chest Non Tender, Decreased Breath Sounds, Rhonci, Wheezing Cardiovascular: Regular Rate, Rhythm Gastrointestinal: normal bowel sounds, soft, tenderness Extremity: Normal Capillary Refill Neurologic/Psychiatric: Alert, Oriented x3 Skin: Normal Color Lymphatic: No Adenopathy Results Lab Microbiology 12/06/19 MRSA Screen - Final, Complete MRSA not isolated Assessment/Plan Assessment/Plan Assess & Plan/Chief Complaint s/p lap right hemicolectomy. ambulate. IS and breathing tx. once baseline respiratory status then d/c. had BM. start regular diet. Clinical Quality Measures DVT/VTE Risk/Contraindication: Risk Factor Score Per Nursin RFS Level Per Nursing on Admit: 4+=Very High KADIE CLAY MD Dec 09, 2019 10:04
[2019-12-09 11:23] VITALS: BP 120/82
[2019-12-09] MEDS: fentaNYL INJECTION 1,000 MCG in NS (IVPB) 80 ML IV SCH (12:38)
--- NOTE | 2019-12-09 15:00 | NUR ---
DR. CLAY NOTIFIED OF PT HAVING 620 CC REDDISH DRAINAGE FROM RIGHT FRANK DRAIN. ALSO THAT PT. HAS NOT VOIDED IN 8 HRS. BLADDER SCAN 208 CC NOTED. NEW ORDER'S NOTED. BLOOD DRAWN. PT. DENIES BEING UNCOMFORTABLE IN ABD/BLADDER AREA.
[2019-12-09 15:27] LABS: HEMOGLOBIN 16.8 G/DL (13.3-17.7)
[2019-12-09 16:01] VITALS: BP 121/84
[2019-12-09] MEDS ORDERED: LIDOCAINE UROJET 2% GEL 10 ML PKG ONE (17:44)
[2019-12-09] MEDS: ONDANSETRON 4 MG/2 ML (SDV) Z0FRAN IVP PRN (17:49)
--- NOTE | 2019-12-09 18:06 | NUR ---
PT. UNABLE TO VOID. STRAIGHT CATH DONE WITH #14 RED CATH. JAIDEN. WELL. 170 CC DARK ODETTE URINE RETURNED. DR. CLAY NOTIFIED.
[2019-12-09 19:14] VITALS: BP 131/86
[2019-12-09] MEDS: PANTOPRAZOLE 40 MG (PROTONIX) VIAL IV SCH (23:26)
[2019-12-10 00:56] VITALS: BP 127/87
--- NOTE | 2019-12-10 01:50 | NUR ---
PT URINE OUT PUT 320ML IN THE LAST 24HRS AND FRANK 900ML.BLADDER SCAN AFTER 8HRS AND ONLY SHOWING 130ML. PT HAS NOT VOID ON HIS OWN FOR FOR ABOUT 18HRS. DR PASTOR NOTIFIED ABOUT SITUATION AND NEW ORDERS RECEIVED FOR LABS AND WEST
--- NOTE | 2019-12-10 02:10 | NUR ---
16 F WEST CATHETER INSERTED SUCCESSFULLY USING STERILE TECHNIQUE BY Mateo GARVEY RN FOR ACCURATE I&O AT THIS TIME PER ORDER. 150 ML OF CLEAR, DARK ODETTE URINE RETURNED. PT TOLERATED WELL. DISCUSSED CATHETER TEACHING AND CARE WITH PT AT THIS TIME. PT VERBALIZED UNDERSTANDING OF TEACHINGS. WILL CONTINUE TO MONITOR.
[2019-12-10 02:15] LABS: HEMOGLOBIN 15.4 G/DL (13.3-17.7); MEAN PLATELET VOLUME 9.8 FL (7.4-10.4); RED CELL DISTRIBUTION WIDTH 13.1 % (10.0-14.5); WHITE BLOOD COUNT 4.5 10^3/uL (4.3-11.0)
[2019-12-10 02:22] LABS: CHLORIDE 100 MMOL/L (98-107); POTASSIUM 4.3 MMOL/L (3.6-5.0); SODIUM 134 MMOL/L (135-145)
[2019-12-10 02:23] LABS: CALCIUM 8.3 MG/DL (8.5-10.1); GLUCOSE 162 MG/DL (70-105)
[2019-12-10 02:25] LABS: CARBON DIOXIDE 24 MMOL/L (21-32)
[2019-12-10 02:27] LABS: CREATININE SERUM 0.67 MG/DL (0.60-1.30); GFR ESTIMATED > 60
[2019-12-10 02:28] LABS: BUN/CREATININE RATIO 25
[2019-12-10 04:00] VITALS: BP 116/78
[2019-12-10] MEDS: 1/2 NS W/KCL 20 MEQ/L 1,000 ML IV SCH ×3 (05:49→19:49)
[2019-12-10] MEDS: RT-ALBUTEROL SULF 2.5 MG/3 ML PRE-MIX VIAL INH PRN (06:54)
[2019-12-10 08:00] VITALS: BP 166/77
[2019-12-10] MEDS: SENNA W/DOCUSATE (SENOKOT S) TABLET PO SCH (09:44)
[2019-12-10] MEDS: ENOXAPARIN 30 MG/0.3 ML (LOVENOX) SYR SC SCH ×2 (09:44→21:09)
[2019-12-10] MEDS: NICOTINE PATCH REMOVAL TP SCH (09:45)
[2019-12-10] MEDS: BROMOCRIPTINE 2.5 MG PO SCH ×2 (09:45→18:03)
[2019-12-10] MEDS: NICOTINE 21 MG (NICODERM) PATCH TD SCH (09:45)
[2019-12-10 12:00] VITALS: BP 143/83
--- NOTE | 2019-12-10 13:34 | NUR ---
"RD ASSESSMENT PMHx: CA(colon); HTN; COPD; afib; s/p hemicolectomy PT INTERACTION: Pt was awake and pleasant during nutrition assessment. Pt states current appetite is okay. Note avg PO intake 75% x2meal, per chart review. Pt states following a regular diet at home, and has no issues with chewing/swallowing food. Pt states no recent issues with nausea or vomiting. Note pt has no BM recorded, and currently on bowel regimen of senna qd, per chart review. Pt states no recent wt changes. Note recent 17# wt gain x2mon, per chart review. Note pt consumes 6pack of beer per night, per H&P. ABNORMAL NUTRITION-RELATED LAB VALUES LOW: Ca 8.3 HIGH: glu 162 Est. kcal needs: 1825 kcal | 20 kcal/kg Est. Pro needs: 91 g Pro | 1.0 g Pro/kg PES STATEMENT: Given current PO intake, no nutrition diagnosis at this time (NO-1.1) INTERVENTION: Note pt currently on DYS3 Advanced/Ground Meat diet. Note pt has no issues with chewing/swallowing food at this time. Would recommend diet advancement to Regular diet, for pt tolerance. Will continue to follow and reassess as pt needs, intake, and status change. MONITOR/EVALUATE: PO Intake; Plan of Care; Hydration Status; Weight Status; Lab Values Duncan Blackburn, , RD, LD"
--- NOTE | 2019-12-10 13:54 | NUR ---
Pt is Muslim but does not desire sacraments. Helix Coil Winder offered prayer and blessing.
[2019-12-10] MEDS: ONDANSETRON 4 MG/2 ML (SDV) Z0FRAN IVP PRN (14:31)
[2019-12-10 15:24] VITALS: BP 127/81
[2019-12-10] MEDS ORDERED: NS 100 ML (IVPB) BAG IV ONE (16:30)
[2019-12-10] MEDS ORDERED: IOHEXOL 350 MG/ML 100 ML (OMNIPAQUE 350) VIAL IV ONE (16:30)
[2019-12-10] MEDS ORDERED: HOLD METFORMIN - RECEIVED CONTRAST 20 ML VIAL IV SCH (16:30)
--- NOTE | 2019-12-10 16:50 | NUR ---
RT (LILIANA) NOTIFIED OF TRELEGY INHALER ORDER AT THIS TIME. PATIENT IS OFF THE FLOOR AT THIS TIME GETTING A CT.
--- NOTE | 2019-12-10 16:50 | Progress Note ---
Subjective Date Seen by a Provider: Dec 10, 2019 Time Seen by a Provider: 16:00 Subjective/Events-last exam developed abd pain and distention with episode of nasuea/vomiting. also developed increased FRANK drain output. Objective Exam Vital Signs Date Time Temp Pulse Resp B/P (MAP) Pulse Ox O2 Delivery O2 Flow Rate FiO2 12/10/19 15:24 36.3 7 18 127/81 (96) 96 Nasal Cannula 2.00 12/10/19 14:31 96 Nasal Cannula 2.00 12/10/19 12:00 35.6 80 18 143/83 (103) 92 Nasal Cannula 2.00 12/10/19 09:51 100 Nasal Cannula 2.00 12/10/19 09:00 100 Nasal Cannula 2.00 12/10/19 08:00 35.9 84 17 166/77 (106) 91 Nasal Cannula 2.00 12/10/19 06:44 97 Nasal Cannula 2.00 12/10/19 05:55 20 12/10/19 04:00 36.2 95 20 116/78 (91) 95 Nasal Cannula 2.00 12/10/19 01:19 95 Nasal Cannula 2.00 12/10/19 00:56 36.9 84 19 127/87 (100) 95 Nasal Cannula 3.00 12/09/19 20:35 Nasal Cannula 2.00 12/09/19 19:14 36.1 80 17 131/86 (101) 99 Nasal Cannula 3.00 12/09/19 18:53 95 Nasal Cannula 2.00 I & O 12/10/19 07:00 Intake Total 2140 ml Output Total 1405 ml Balance 735 ml Capillary Refill : Less Than 3 SecondsLess Than 3 Seconds General Appearance: No Apparent Distress HEENT: PERRL/EOMI Neck: Full Range of Motion Respiratory: Chest Non Tender, Rhonci, Wheezing Cardiovascular: Regular Rate, Rhythm Gastrointestinal: soft, distended Extremity: Normal Capillary Refill Neurologic/Psychiatric: Alert, Oriented x3 Skin: Normal Color Lymphatic: No Adenopathy Results Lab Laboratory Tests 12/10/19 02:00: White Blood Count 4.5, Red Blood Count 4.06L, Hemoglobin 15.4, Hematocrit 43, Mean Corpuscular Volume 105H, Mean Corpuscular Hemoglobin 38H, Mean Corpuscular Hemoglobin Concent 36, Red Cell Distribution Width 13.1, Platelet Count 162, Mean Platelet Volume 9.8, Sodium Level 134L, Potassium Level 4.3, Chloride Level 100, Carbon Dioxide Level 24, Anion Gap 10, Blood Urea Nitrogen 17, Creatinine 0.67, Estimat Glomerular Filtration Rate > 60, BUN/Creatinine Ratio 25, Glucose Level 162H, Calcium Level 8.3L 12/10/19 16:24: Microbiology 12/06/19 MRSA Screen - Final, Complete MRSA not isolated Assessment/Plan Assessment/Plan Assess & Plan/Chief Complaint s/p lap right hemicolectomy. ambulate. developed nausea and vomiting. possible ileus. developed increase drain output. will get CT IVP abd and pelvis. Clinical Quality Measures DVT/VTE Risk/Contraindication: Risk Factor Score Per Nursin RFS Level Per Nursing on Admit: 4+=Very High KADIE CLAY MD Dec 10, 2019 16:49
--- NOTE | 2019-12-10 17:00 | NUR ---
REPORT FROM BRIDGER GARZA, WILL ASSUME CARE OF PATIENT AT THIS TIME.
--- NOTE | 2019-12-10 17:24 | Diagnostic Imaging Report ---
PROCEDURE: CT abdomen and pelvis with and without contrast. TECHNIQUE: Precontrast acquisitions were acquired through the abdomen and pelvis. Multiple contiguous axial images were obtained through the abdomen and pelvis after the administration of intravenous contrast. Auto Exposure Controls were utilized during the CT exam to meet ALARA standards for radiation dose reduction. INDICATION: Status post right hemicolectomy. Colon cancer. Surgery on December 06, 2019. Patient is having severe right-sided abdominal pain. COMPARISON STUDY: CT of the chest, abdomen, and pelvis from 10/15/2019. FINDINGS: Postoperative changes are present in the right side of the colon with a surgical drain. No loculated fluid collections are present. Small amount of free fluid and hemorrhage is seen dependently in the pelvis. The small bowel loops are distended. The distal-most small bowel loops are decompressed. The exact transition zone is never identified and appears to be in the right lower quadrant. The lung bases are clear. Liver is normal. Gallstones are present. No ductal dilatation is seen. The spleen, pancreas, adrenal glands, and kidneys are normal. Urinary bladder is decompressed by a Cano catheter. IMPRESSION: 1. There is at least partial distal small bowel obstruction. 2. Small amount of fluid and hemorrhage is seen dependently in the pelvis. Dictated by: Dictated on workstation # [id number]
[2019-12-10 19:14] VITALS: BP 131/81
--- NOTE | 2019-12-10 20:40 | NUR ---
DR CLAY CALLED THIS NURSE AND ORDERED TO CHANGE PT TO CLEAR LIQUID DIET DUE TO ILEUS THAT WAS SHOWN ON SCANS
[2019-12-10] MEDS: TRELEGY ELLIPTA INHALER IH SCH (21:04)
[2019-12-10] MEDS: PANTOPRAZOLE 40 MG (PROTONIX) VIAL IV SCH (23:50)
[2019-12-11 00:08] VITALS: BP 114/79
[2019-12-11 04:44] VITALS: BP 133/84
[2019-12-11] MEDS: TRELEGY ELLIPTA INHALER IH SCH (07:27)
[2019-12-11 08:00] VITALS: BP 128/84
[2019-12-11] MEDS: BROMOCRIPTINE 2.5 MG PO SCH ×2 (08:21→18:27)
[2019-12-11] MEDS: SENNA W/DOCUSATE (SENOKOT S) TABLET PO SCH (08:21)
[2019-12-11] MEDS: ENOXAPARIN 30 MG/0.3 ML (LOVENOX) SYR SC SCH ×2 (08:22→19:47)
[2019-12-11] MEDS: 1/2 NS W/KCL 20 MEQ/L 1,000 ML IV SCH ×2 (08:22→19:55)
[2019-12-11] MEDS: NICOTINE 21 MG (NICODERM) PATCH TD SCH (08:22)
[2019-12-11] MEDS: NICOTINE PATCH REMOVAL TP SCH (08:22)
[2019-12-11] MEDS: ONDANSETRON 4 MG/2 ML (SDV) Z0FRAN IVP PRN (08:28)
[2019-12-11] MEDS: NON-FORMULARY MEDICATION 1 EA EA (Fluticasone/Umeclidin/Vilanter (Trelegy Ellipta 100-62.5 IH SCH (10:22)
[2019-12-11 12:00] VITALS: BP 133/87
--- NOTE | 2019-12-11 13:07 | Progress Note ---
Subjective Date Seen by a Provider: Dec 11, 2019 Time Seen by a Provider: 12:00 Subjective/Events-last exam doing ok. CT consistent with ileus. no bm/flatus recently. ambulating well. pain controlled. Objective Exam Vital Signs Date Time Temp Pulse Resp B/P (MAP) Pulse Ox O2 Delivery O2 Flow Rate FiO2 12/11/19 12:00 36.4 71 13 133/87 (102) 98 Nasal Cannula 1.00 12/11/19 10:22 97 Nasal Cannula 1.00 12/11/19 09:00 Room Air 1.00 12/11/19 08:00 36.4 75 24 128/84 (99) 95 Nasal Cannula 1.00 12/11/19 07:27 94 Room Air 12/11/19 06:20 20 12/11/19 04:44 36.4 81 21 133/84 (100) 95 Nasal Cannula 2.00 12/11/19 00:08 36.2 83 22 114/79 (91) 93 Nasal Cannula 2.00 12/10/19 21:05 Room Air 2.00 12/10/19 21:04 94 Room Air 12/10/19 19:14 35.9 84 17 131/81 (98) 91 Nasal Cannula 2.00 12/10/19 18:01 20 12/10/19 15:24 36.3 7 18 127/81 (96) 96 Nasal Cannula 2.00 12/10/19 14:31 96 Nasal Cannula 2.00 I & O 12/11/19 07:00 Intake Total 910 ml Output Total 1400 ml Balance -490 ml Capillary Refill : Less Than 3 SecondsLess Than 3 Seconds General Appearance: No Apparent Distress HEENT: PERRL/EOMI Neck: Full Range of Motion Respiratory: Chest Non Tender, Rhonci, Wheezing Cardiovascular: Regular Rate, Rhythm Gastrointestinal: soft, distended Extremity: Normal Capillary Refill Neurologic/Psychiatric: Alert, Oriented x3 Skin: Normal Color Lymphatic: No Adenopathy Results Lab Laboratory Tests 12/10/19 16:24: Body Fluid Creatinine 0.55 Microbiology 12/10/19 Gram Stain, Resulted Pending 12/10/19 Body Fluid Culture - Preliminary, Resulted Escherichia coli 12/06/19 MRSA Screen - Final, Complete MRSA not isolated Assessment/Plan Assessment/Plan Assess & Plan/Chief Complaint s/p lap right hemicolectomy. ambulate. developed nausea and vomiting from ileus. clear liquids for now. will start reglan. await bowel fxn before advancing diet. Clinical Quality Measures DVT/VTE Risk/Contraindication: Risk Factor Score Per Nursin RFS Level Per Nursing on Admit: 4+=Very High KADIE CLAY MD Dec 11, 2019 13:07
[2019-12-11] MEDS: METOCLOPRAMIDE INJ 10 MG/2 ML (REGLAN) IVP SCH ×2 (13:25→18:27)
[2019-12-11 15:49] VITALS: BP 124/75
[2019-12-11 20:00] VITALS: BP 137/84
[2019-12-12] MEDS ORDERED: NOREPINEPHRINE 4 MG/250 ML 250 ML IV ONE ×8 (12:00→23:56)
[2019-12-12] MEDS ORDERED: fentaNYL INJECTION 100 MCG/2 ML AMP ONE ×2 (14:37→14:45)
[2019-12-12] MEDS ORDERED: MIDAZOLAM 2 MG/2 ML (VERSED) VIAL ONE (14:46)
[2019-12-12] MEDS: LACTATED RINGERS 1,000 ML IV PRN ×3 (15:16→16:42)
[2019-12-12] MEDS ORDERED: ceFAZolin 2 GM IV Premixed 50 ML ONE (15:32)
[2019-12-12] MEDS ORDERED: morphine INJ 10 MG/ML 1ML (SYR OR VIAL) ONE (15:52)
[2019-12-12] MEDS ORDERED: PHENYLEPHRINE 100 MCG/ML 10 ML (ANESTHESIA) SYR ONE (15:54)
[2019-12-12] MEDS ORDERED: proPOfol 200 MG/20 ML (DIPRIVAN) VIAL IV ONE (15:54)
[2019-12-12] MEDS ORDERED: ROCURONIUM 10 MG/ML 5 ML SYRINGE IV ONE ×2 (15:55→17:18)
[2019-12-12] MEDS ORDERED: SUCCINYLCHOLINE INJ 100 MG/5 ML SYR ONE (15:55)
[2019-12-12] MEDS ORDERED: PROPOFOL DRIP (ICU) 100 ML IV ONE (17:00)
[2019-12-12] MEDS ORDERED: NS W/KCL 20 MEQ/L 1,000 ML IV ONE (17:16)
[2019-12-12] MEDS ORDERED: ISOFLURANE (FORANE) 15 ML/15 MIN INHALATION ONE (17:18)
[2019-12-12] MEDS ORDERED: NEOSTIGMINE 3 MG/3 ML VIAL ONE (17:18)
[2019-12-12] MEDS ORDERED: GLYCOPYRROLATE 0.2 MG/ML (ROBINUL) 2 ML VIAL ONE (17:19)
[2019-12-12] MEDS ORDERED: D5 NS 1000 ML IV SOLUTION 1,000 ML IV ONE (20:08)
[2019-12-12] MEDS ORDERED: EPINEPHrine (OMNICELL DRIP KIT ONLY) 1 MG/ML AMP ONE (20:33)
[2019-12-12] MEDS ORDERED: NS (IVPB) 250 ML ONE (20:33)
[2019-12-12] MEDS ORDERED: ALBUMIN 25% 25 GM/100 ML 100 ML IV ONE (20:38)
[2019-12-13] VITALS (21 sets, daily range): BP systolic 80–153; BP diastolic 51–76
[2019-12-13] MEDS ORDERED: NS (IVPB) 100 ML ONE ×2 (00:16→11:16)
[2019-12-13] MEDS ORDERED: fentaNYL (OMNICELL DRIP KIT ONLY) 250 MCG/5 ML AMP ONE (00:16)
[2019-12-13] MEDS ORDERED: NS (IVPB) 250 ML ONE ×2 (00:24→02:24)
[2019-12-13] MEDS ORDERED: EPINEPHrine (OMNICELL DRIP KIT ONLY) 1 MG/ML AMP ONE (00:24)
[2019-12-13] MEDS ORDERED: PROPOFOL DRIP (ICU) 100 ML IV ONE ×2 (00:49→10:19)
[2019-12-13] MEDS ORDERED: NOREPINEPHRINE 4 MG/250 ML 250 ML IV ONE ×2 (00:49→01:19)
--- NOTE | 2019-12-13 01:15 | OPERATIVE REPORT ---
DATE OF SERVICE: 12/12/2019 PREOPERATIVE DIAGNOSIS: Intra-abdominal hemorrhage, status post laparoscopic right hemicolectomy on 12/06/2019. POSTOPERATIVE DIAGNOSIS: Mild mesenteric and omental oozing. There was no active arterial or large vessel bleeding. PROCEDURE: Exploratory laparotomy and suture ligation of mesentery and placement of fibrin glue. SURGEON: Attila Clay MD CLEANING ASSOCIATE: Ren Campa APRN ANESTHESIA: General endotracheal. ESTIMATED BLOOD LOSS: Minimal. FINDINGS: Mild oozing from the previously dissected area of the colonic mesentery as well as the greater omentum. No active large vessel bleeding. The anastomosis was intact. No signs of ischemia or necrosis or any leaks. DISPOSITION: The patient tolerated the procedure well. INDICATIONS: The patient is a 69-year-old male who was found to have a large polyp of the ascending colon, which was biopsied and did show adenocarcinoma. He then underwent a laparoscopic right hemicolectomy on 12/06/2019. He did well postoperatively; however, approximately postoperative day #4, developed significant amount of FRANK drain output. He then underwent an IVP of the abdomen and pelvis, which did not show any ureter injury or leak. The FRANK drain output was also sent for creatinine, which was more consistent with peritoneal fluid. His hemoglobin on a daily basis was normal anywhere from the 12 to [address] scan did show an ileus and I placed him back on a clear liquid diet. Early this morning, he developed what appears to be a vasovagal episode with hypotension and respiratory insufficiency and he was transferred to the ICU and resuscitated. The drainage out of the Juan-Godfrey drain continued to be copious with 1300 mL of what appeared to be a dark sanguinous blood. Due to his continued symptoms, we decided to proceed with exploratory laparotomy. DESCRIPTION OF PROCEDURE: The patient was brought to the operating room, laid supine on the table. After adequate IV pain and sedative medications and general endotracheal intubation, the abdomen was prepped and draped in standard surgical fashion. A midline laparotomy incision was then made using a 15 blade. Subcutaneous tissue, fascia and peritoneal lining were then opened under direct visualization using an electrocautery. A 4-quadrant abdominal exploration was performed. There was no arterial or large vessel bleeding identified. From the previously dissected edges of the mesentery as well as the cut edges of the omentum, there appeared to be oozing. There was actually minimal amount of blood within the peritoneal cavity of only approximately 100 mL. The ileocolonic anastomosis was examined and intact and patent as well as no signs of any leak nor any ischemic or necrotic changes. The abdomen was then copiously irrigated with 3 liters of warm saline. The mesenteric lining as well as the omentum was then cauterized with electrocautery. The mesentery was then closed with a 3-0 Vicryl suture. Another 19-Vietnamese Juan-Godfrey drain was placed and brought out the left lower abdomen and sutured to the skin using 3-0 nylon interrupted suture. Good hemostasis was observed. The fascia and peritoneal lining was then closed using #1 looped PDS suture starting superiorly and inferiorly and tied in the middle. The skin was then loosely approximated using interrupted 3-0 nylon sutures. Wound was then cleaned and covered with dry gauze. The patient tolerated the procedure well. Due to his severe COPD, we will keep him on the ventilator overnight and we will continue to monitor his hemoglobin and hematocrits. We will also hold anticoagulation right now and proceed with DVT prophylaxis with calf SCDs. We will proceed with pain control with a HOTEL DESK CLERK pump as well. Job ID: [id number] DocumentID: [id number] Dictated Date: 12/12/2019 16:50:52 Cloth Washer Back Tender Date: 12/13/2019 01:14:52 Dictated By: ATTILA CLAY MD
[2019-12-13] MEDS ORDERED: NS IV 500 ML 500 ML ONE (02:27)
[2019-12-13 06:47] LABS: ABG PCO2 41 MMHG (35-45); ABG PO2 163 MMHG (79-93)
[2019-12-13 06:48] LABS: ABG BASE EXCESS -11.3 MMOL/L (-2.5-2.5); ABG OXYGEN SATURATION 99 % (94-100); ABG TCO2 39.3 MMOL/L (21.0-31.0); ALLENS TEST POSITIVE; INSPIRED O2 70 FIO2; PATIENT TEMP 36.4; VENTILATOR NO
[2019-12-13 07:00] LABS: POTASSIUM 4.4 MMOL/L (3.6-5.0); SODIUM 131 MMOL/L (135-145)
--- NOTE | 2019-12-13 07:00 | NUR ---
[facility] DOWNTIME DOCUMENTATION/ TIMELINE NOTE: 0725- NEW BAG OF EPINEPHRINE HUNG, CURRENTLY INFUSING AT 0.26MCG/KG/MIN 0737- PT HYPOTENSIVE, EPI RATE INCREASED TO 0.30MCG/KG/MIN PER PROTOCOL 0747- NS AND 1 UNIT OF BLOOD STARTED AT 0747. BLOOD ENDED AT 0823. NO S/S OF REACTION. BLOOD STARTING RATE @ 150ML/HR AND INCREASED TO WIDE OPEN AFTER FIRST 15 MINS. PT TOLERATED WELL. 0815- NEW BAG OF LEVOPHED HUNG AT 1MCG/KG/MIN 0820- NEW INSULIN GTT HUNG, INFUSING AT 18 UNITS/HR PER PROTOCOL. 0840- EPI DECREASED TO 0.26MCG/KG/MIN PER PROTOCOL. 0845- NEW BAG OF EPI HUNG AT 0.26MCG/KG/MIN 0918- NEXT UNIT OF BLOOD STARTED AT 0918, ENDED AT 0955. STARTED AT 150ML/HR FOR FIRST 15 MINS THEN RAN WIDE OPEN. PT TOLERATED WELL. 0940- NEW BAG OF LEVOPHED HUNG AT 1MCG/KG/MIN 0950- DR WINKLER AT BEDSIDE, INSULIN GTT STOPPED PER 1000-BOTH DR WINKLER AND DR TORRES AT BEDSIDE ALONG W/ PTS MOTHER. THIS RN CALLED AND INFORMED DR CLAY REGARDING CONTINUOS BLOODY DRAINAGE FROM FRANK DRAIN #1. DR CLAY ADVISED TO PREPARE THE PT TO RETURN TO SURGERY.
[2019-12-13 07:01] LABS: ALANINE AMINOTRANSFERASE 25 U/L (0-55); ALBUMIN 3.1 GM/DL (3.2-4.5); ALKALINE PHOSPHATASE 38 U/L (40-136); BILIRUBIN,TOTAL 1.2 MG/DL (0.1-1.0); BUN/CREATININE RATIO 27; CALCIUM 7.7 MG/DL (8.5-10.1); CARBON DIOXIDE 21 MMOL/L (21-32); CHLORIDE 96 MMOL/L (98-107); CREATININE SERUM 0.79 MG/DL (0.60-1.30); GFR ESTIMATED > 60; GLUCOSE 201 MG/DL (70-105); TOTAL PROTEIN 1.2 GM/DL (6.4-8.2)
--- NOTE | 2019-12-13 07:01 | Anesthesia-General Post-Op ---
General Patient Condition Mental Status/LOC: Unreactive Cardiovascular: Unsatisfactory Nausea/Vomiting: Absent Respiratory: Unsatisfactory Pain: Uncontrolled Complications: Present Post Op Complications Complications None Follow Up Care/Instructions Patient Instructions None needed. Anesthesia/Patient Condition Patient Condition Pt intubated and sedated on Levo and Epi. Will continue to f/u and be available for consultation. D/C home per [facility] [place] Criteria: TODD Berman CRNA Dec 13, 2019 07:01
[2019-12-13 07:06] LABS: ABG BASE EXCESS -7.6 MMOL/L (-2.5-2.5); ABG OXYGEN SATURATION 98 % (94-100); ABG PCO2 68 MMHG (35-45); ABG PH 7.11 (7.37-7.43); ABG PO2 120 MMHG (79-93); ABG TCO2 65.2 MMOL/L (21.0-31.0)
[2019-12-13 07:07] LABS: ALLENS TEST POSITIVE; PATIENT TEMP 96.8; VENTILATOR NO
[2019-12-13 07:10] LABS: ABG BASE EXCESS -8.4 MMOL/L (-2.5-2.5); ABG OXYGEN SATURATION 99 % (94-100); ABG PCO2 58 MMHG (35-45); ABG PH 7.14 (7.37-7.43); ABG PO2 180 MMHG (79-93); ABG TCO2 56.2 MMOL/L (21.0-31.0); ALLENS TEST POSITIVE; INSPIRED O2 100; PATIENT TEMP 36.3; VENTILATOR NO
[2019-12-13 07:11] LABS: MEAN CORPUSCULAR HEMOGLOBIN 35 PG (25-34); WHITE BLOOD COUNT 15.2 10^3/uL (4.3-11.0)
[2019-12-13 07:12] LABS: BASOPHILS % (AUTO) 0 % (0-10); EOSINOPHILS % (AUTO) 0 % (0-10); HEMATOCRIT 24 % (40-54); HEMOGLOBIN 8.4 G/DL (13.3-17.7); LYMPHOCYTES # (AUTO) 1.5 X 10^3 (1.0-4.0); LYMPHOCYTES % (AUTO) 10 % (12-44); MEAN CORPUSCULAR HGB CONC 35 G/DL (32-36); MEAN CORPUSCULAR VOLUME 100 FL (80-99); MEAN PLATELET VOLUME 10.2 FL (7.4-10.4); MONOCYTES # (AUTO) 1.6 X 10^3 (0.0-1.0); MONOCYTES % (AUTO) 11 % (0-12); NEUTROPHILS # (AUTO) 12.1 X 10^3 (1.8-7.8); NEUTROPHILS % (AUTO) 79 % (42-75); PLATELET COUNT 190 10^3/uL (130-400); RED CELL DISTRIBUTION WIDTH 17.1 % (10.0-14.5)
[2019-12-13 07:14] LABS: ANISOCYTOSIS MODERATE; ATYPICAL LYMPHOCYTES 5 %; BAND NEUTROPHILS 15 %; HYPOCHROMASIA MODERATE; LYMPHOCYTES % (MANUAL) 9 %; METAMYELOCYTES % 1 %; MONOCYTES % (MANUAL) 8 %; MYELOCYTES % 1 %; NEUTROPHILS % (MANUAL) 61 %
[2019-12-13 07:15] LABS: CREATININE SERUM 1.45 MG/DL (0.60-1.30); POTASSIUM 5.2 MMOL/L (3.6-5.0)
[2019-12-13 07:16] LABS: ALBUMIN 2.4 GM/DL (3.2-4.5); BILIRUBIN,TOTAL 0.8 MG/DL (0.1-1.0); CALCIUM 5.9 MG/DL (8.5-10.1)
[2019-12-13 07:18] LABS: HEMOGLOBIN 9.9 G/DL (13.3-17.7)
[2019-12-13 07:19] LABS: HEMOGLOBIN 12.7 G/DL (13.3-17.7)
[2019-12-13 07:27] LABS: BASOPHILS % (AUTO) 0 % (0-10); EOSINOPHILS % (AUTO) 0 % (0-10); HEMATOCRIT 22 % (40-54); HEMOGLOBIN 7.7 G/DL (13.3-17.7); LYMPHOCYTES # (AUTO) 1.2 X 10^3 (1.0-4.0); LYMPHOCYTES % (AUTO) 9 % (12-44); MEAN CORPUSCULAR HEMOGLOBIN 33 PG (25-34); MEAN CORPUSCULAR HGB CONC 34 G/DL (32-36); MEAN CORPUSCULAR VOLUME 97 FL (80-99); MEAN PLATELET VOLUME 10.9 FL (7.4-10.4); MONOCYTES # (AUTO) 1.1 X 10^3 (0.0-1.0); MONOCYTES % (AUTO) 9 % (0-12); NEUTROPHILS % (AUTO) 82 % (42-75); PLATELET COUNT 173 10^3/uL (130-400); RED CELL DISTRIBUTION WIDTH 16.3 % (10.0-14.5)
[2019-12-13 07:28] LABS: INR 1.5 (0.8-1.4); PROTHROMBIN TIME PATIENT 18.1 SEC (12.2-14.7)
[2019-12-13 07:29] LABS: BUN/CREATININE RATIO 17; CARBON DIOXIDE 14 MMOL/L (21-32); CHLORIDE 105 MMOL/L (98-107); CREATININE SERUM 1.86 MG/DL (0.60-1.30); GFR ESTIMATED 36; GLUCOSE 326 MG/DL (70-105); POTASSIUM 4.5 MMOL/L (3.6-5.0); SODIUM 127 MMOL/L (135-145)
[2019-12-13 07:30] LABS: ALANINE AMINOTRANSFERASE 38 U/L (0-55); ALBUMIN 2.2 GM/DL (3.2-4.5); ALKALINE PHOSPHATASE 18 U/L (40-136); BILIRUBIN,DIRECT 0.6 MG/DL (0.0-0.3); BILIRUBIN,INDIRECT 0.2 MG/DL; BILIRUBIN,TOTAL 0.8 MG/DL (0.1-1.0); CALCIUM 5.7 MG/DL (8.5-10.1); MAGNESIUM 1.3 MG/DL (1.6-2.4); PHOSPHORUS 3.5 MG/DL (2.3-4.7); TOTAL PROTEIN 3.6 GM/DL (6.4-8.2)
[2019-12-13 07:31] LABS: TRIGLYCERIDES 59 MG/DL (<150)
[2019-12-13] MEDS ORDERED: ceFAZolin 2 GM IV Premixed 50 ML IV ONE (07:45)
[2019-12-13 08:07] LABS: INR 1.1 (0.8-1.4); PROTHROMBIN TIME PATIENT 14.2 SEC (12.2-14.7)
[2019-12-13] MEDS ORDERED: NS IV 1000 ML 1,000 ML IV SCH ×2 (08:45→09:15)
[2019-12-13] MEDS: SENNA W/DOCUSATE (SENOKOT S) TABLET PO SCH ×2 (08:50→09:25)
[2019-12-13] MEDS: BROMOCRIPTINE 2.5 MG PO SCH ×4 (08:51→17:19)
--- NOTE | 2019-12-13 08:51 | Pulmonary Consultation ---
History of Present Illness History of Present Illness Date Seen by Provider: Dec 13, 2019 Time Seen by Provider: 08:39 Date of Admission History of Present Illness 69yo with hx of COPD, HTN and recent dx of colon cancer 10/02 he presented for elective laparoscopic right hemicolectomy on 12/05 secondary to colon cancer . I am consulted this monring 12/12 8:40am. Pt was recovering on 4th floor and then went back to surgery 12/05 (yesterday) secondary to intra abdominal hemorrhage. 12/05 post operative dx per post op notes is "Mild mesenteric and omental oozing. There was no active arterial or large vessel bleeding." Pt was left on ventilator after surgery 12/05 and admitted to ICU. EICU has managed through the night. RN informed me about pt this morning. Yesterday EICU dx pt with Deptic shock. they order Levophed, and epi gtt. EICU also changed IVF to d5ns then to NS secondary hyperglycemia. Pt was also given Albumin bolus. Allergies and Home Medications Allergies Coded Allergies: No Known Allergies (Unverified Allergy, Unknown, 10/03/19) Home Medications Albuterol Sulfate 1 Puff Puff, 2 PUFF IH BID, (Reported) 1 PUFF = 90 MCG Bromocriptine Mesylate 2.5 Mg Tablet, 2.5 MG PO BID, (Reported) Carvedilol 12.5 Mg Tablet, 6.25 MG PO BID, (Reported) take 1/2 of 12.5mg tab Doxazosin Mesylate 2 Mg Tablet, 2 MG PO HS, (Reported) Fluticasone/Umeclidin/Vilanter 1 Each Blst.w.dev, 1 EACH IH DAILY@1500, (Reported) Formoterol Fumarate 20 Mcg/2 Ml Vial.neb, 20 MCG IH BID, (Reported) Hydrocodone/Acetaminophen 1 Each Tablet, 1 EACH PO Q4H Prescribed by: KADIE CLAY on 12/07/19 1246 Past Zrmrxxv-Esupib-Hrzfgp Hx Past Med/Social Hx: Reviewed Nursing Past Med/Soc Hx Patient Social History Alcohol Use: Regular Use Number of Drinks Today: 0 Alcohol Beverage of Choice: Whiskey Recreational Drug Use: No Smoking Status: Current Everyday Smoker Type Used: Cigarettes 2nd Hand Smoke Exposure: No Recent Foreign Travel: No Contact w/Someone Who Travel: No Recent Infectious Disease Expo: No Recent Hopitalizations: No Immunizations Up To Date Date of Influenza Vaccine: Jan 23, 2019 Seasonal Allergies Seasonal Allergies: No Past Medical History Surgeries: Yes (I&D wrist abscess, cyst removed from finger) Orthopedic Respiratory: Yes Sleep Apnea, COPD Currently Using CPAP: Yes Currently Using BIPAP: No Cardiac: Yes Atrial Fibrillation 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 No Pertinent Family Hx Review of Systems Time Seen by Provider: 13:52 Sepsis Event Evaluation Height, Weight, BMI Height: '" Weight: lbs. oz. kg; 27.93 BMI Method: Exam Exam I & O 12/13/19 07:00 Intake Total 2000 ml Output Total 30 ml Balance 1970 ml Height & Weight Height: '" Weight: lbs. oz. kg; 27.93 BMI Method: General Appearance: No Apparent Distress HEENT: PERRL/EOMI Neck: Full Range of Motion Respiratory: Chest Non Tender, Rhonci, Wheezing Cardiovascular: Regular Rate, Rhythm Capillary Refill: Less Than 3 Seconds Gastrointestinal: soft, distended Extremity: Normal Capillary Refill Neurologic/Psychiatric: Alert, Oriented x3 Skin: Normal Color Lymphatic: No Adenopathy Results Lab Laboratory Tests 12/12/19 08:47 12/12/19 13:30 12/12/19 16:25 12/12/19 18:00 12/12/19 20:33 12/13/19 03:00 Assessment/Plan Assessment/Plan s/p elective laparoscopic right hemicolectomy on 12/02 s/p repeat surgery secondary to intra abdominal hemorrhage 12/05 (yesterday) Acute respiratory failure -Pt was left on vent s/p surgery yesterday -Current settings per EICU -Labs and radiology reviewed Acute severe sepsis with septic shock -EICU managed through the night -Currently on Zosyn -Joseph cultures Ecoli and Klebsiella from peritoneal fluid -WBC is improving with Zosyn -Sputum culture is pending. Will order UA with C&S -Pt is on Levophed and epi -IVF currently NS Active Bleeding -Dr. Clay is aware - Pt is now s/p 5 units of PRBC. -RN is getting ready to hang the 6th unit of PRBC ordered per Dr. Clay. -RN has drained over 1200 ml of bloody fluid from left FRANK drain -INR this AM is 1.5. Will order 2 units of FFP CHRIS TORRES DO Dec 13, 2019 08:51
[2019-12-13] MEDS: METOCLOPRAMIDE INJ 10 MG/2 ML (REGLAN) IVP SCH ×3 (08:54→12:07)
[2019-12-13] MEDS ORDERED: fentaNYL INJECTION 100 MCG/2 ML AMP IVP PRN (09:00)
[2019-12-13] MEDS ORDERED: TPN IV SCH (09:00)
[2019-12-13] MEDS ORDERED: NS W/KCL 20 MEQ/L 1,000 ML IV SCH (09:00)
[2019-12-13] MEDS ORDERED: CALCIUM GLUC. 10% 4.65 MEQ/10 ML VIAL IV ONE ×2 (09:15→19:15)
[2019-12-13] MEDS: NOREPINEPHRINE 8 MG in NS (IVPB) 250 ML IV SCH ×9 (09:38→23:26)
[2019-12-13] MEDS: NICOTINE 21 MG (NICODERM) PATCH TD SCH ×3 (10:04→10:09)
[2019-12-13] MEDS: PANTOPRAZOLE 40 MG (PROTONIX) VIAL IV SCH ×2 (10:04→20:24)
[2019-12-13] MEDS ORDERED: CALCIUM GLUC. 10% 4.65 MEQ/10 ML VIAL ONE ×2 (10:05→12:19)
[2019-12-13] MEDS ORDERED: MAGNESIUM 1 GM/100 ML IVPB 300 ML IV ONE (10:05)
[2019-12-13] MEDS ORDERED: ROCURONIUM 10 MG/ML 5 ML SYRINGE IV ONE (10:06)
[2019-12-13] MEDS: ENOXAPARIN 30 MG/0.3 ML (LOVENOX) SYR SC SCH (10:08)
[2019-12-13] MEDS: MAGNESIUM 1 GM/100 ML IVPB 100 ML IV SCH ×3 (10:09→13:52)
[2019-12-13] MEDS: EPINEPHrine 1 MG INJECTION 2 MG in NS (IVPB) 248 ML IV SCH ×4 (10:11→20:34)
--- NOTE | 2019-12-13 10:11 | Progress Note-Pre Operative ---
Pre-Operative Progress Note H&P Reviewed The H&P was reviewed, patient examined and no changes noted. Date Seen by Provider: Dec 13, 2019 Time Seen by Provider: 10:00 Date H&P Reviewed: Dec 06, 2019 Time H&P Reviewed: 10:00 Pre-Operative Diagnosis: intraabdominal hemorrhage KADIE CLAY MD Dec 13, 2019 10:11
[2019-12-13] MEDS ORDERED: ROCURONIUM 50 MG/5 ML (ZEMURON) VIAL IV ONE (10:19)
--- NOTE | 2019-12-13 10:29 | NUR ---
PT LEFT FOR O.R. W/ STAFF. MOTHER WAITING AT BEDSIDE.
[2019-12-13] MEDS: LACTATED RINGERS 1,000 ML IV PRN ×3 (10:31→12:20)
[2019-12-13] MEDS ORDERED: ceFAZolin INJECTION 2,000 MG ONE (10:36)
[2019-12-13] MEDS ORDERED: ceFAZolin INJECTION 1,000 MG VIAL IV ONE (11:00)
[2019-12-13] MEDS ORDERED: PHENYLEPHRINE INJ 10 MG/ML (FOR DRIP KITS ONLY) ONE (11:14)
--- NOTE | 2019-12-13 11:30 | NUR ---
Pastoral care visit, spent time w/pts mother as he was in surgery, she shared her feelings and difficulties with her sons current illness and how it brings up memories of her past losses of and other child. I offered, listening, support and encouragement.
[2019-12-13 11:36] LABS: FIBRIN DEGRADATION PRODUCTS 1.58 UG/ML (0.00-0.49); INR 1.4 (0.8-1.4); PROTHROMBIN TIME PATIENT 17.3 SEC (12.2-14.7)
[2019-12-13 12:07] LABS: HEMOGLOBIN 3.6 G/DL (13.3-17.7)
[2019-12-13] MEDS ORDERED: DEXTROSE 50% 50 ML (IMS) SYR ONE (12:14)
--- NOTE | 2019-12-13 12:51 | NUR ---
PT BACK FROM OR W/ STAFF. PT FINISHING BLOOD TRANSFUSION UPON ARRIVAL . NEW UNIT RBC'S READ AT BEDSIDE W/ ODALIS LOZADA. BLOOD STARTED AT 1300 AND FINISHED AT 1405. PT TOLERATED WELL. NEXT UNIT TO FOLLOW--SEE TRANSFUSION SPREADSHEET FOR DETAILS.
[2019-12-13 13:08] LABS: BASOPHILS % (AUTO) 0 % (0-10); EOSINOPHILS % (AUTO) 1 % (0-10); HEMATOCRIT 40 % (40-54); HEMOGLOBIN 13.7 G/DL (13.3-17.7); LYMPHOCYTES # (AUTO) 1.2 X 10^3 (1.0-4.0); LYMPHOCYTES % (AUTO) 14 % (12-44); MEAN CORPUSCULAR HEMOGLOBIN 37 PG (25-34); MEAN CORPUSCULAR HGB CONC 34 G/DL (32-36); MEAN CORPUSCULAR VOLUME 107 FL (80-99); MEAN PLATELET VOLUME 10.1 FL (7.4-10.4); MONOCYTES % (AUTO) 12 % (0-12); NEUTROPHILS # (AUTO) 6.3 X 10^3 (1.8-7.8); NEUTROPHILS % (AUTO) 73 % (42-75); PLATELET COUNT 214 10^3/uL (130-400); RED CELL DISTRIBUTION WIDTH 12.8 % (10.0-14.5); WHITE BLOOD COUNT 8.6 10^3/uL (4.3-11.0)
[2019-12-13 13:09] LABS: EOSINOPHILS # (AUTO) 0.1 10^3/uL (0.0-0.3)
[2019-12-13] MEDS: PROPOFOL DRIP (ICU) 100 ML IV SCH ×2 (13:29→20:31)
[2019-12-13] MEDS: inSUlin ASPART (NovoLOG) 1 UNIT/0.01 ML (CHARGE PER UNIT) SQ SCH ×3 (13:30→20:34)
[2019-12-13] MEDS: NICOTINE PATCH REMOVAL TP SCH ×3 (13:30→13:52)
[2019-12-13] MEDS ORDERED: ISOFLURANE (FORANE) 15 ML/15 MIN INHALATION ONE ×10 (13:31)
[2019-12-13] MEDS ORDERED: PHENYLEPHRINE 100 MCG/ML 10 ML (ANESTHESIA) SYR ONE (13:33)
--- NOTE | 2019-12-13 13:34 | Progress Note-Pre Operative ---
Pre-Operative Progress Note H&P Reviewed The H&P was reviewed, patient examined and no changes noted. Date Seen by Provider: Dec 13, 2019 Time Seen by Provider: 10:00 Date H&P Reviewed: Dec 06, 2019 Time H&P Reviewed: 10:00 Pre-Operative Diagnosis: recurrent intraabdominal hemorrhage KADIE CLAY MD Dec 13, 2019 13:34
--- NOTE | 2019-12-13 13:36 | Progress Note-Post Operative ---
Post-Operative Progess Note Surgeon (s)/Bone Process Operator (s) Surgeon KADIE CLAY MD Bone Process Operator: mnajula stuart COMPREHENSIVE OPHTHALMOLOGIST Pre-Operative Diagnosis recurrent intraabdominal hemorrhage Post-Operative Diagnosis bleeding right colonic mesenteric base and base of spleen. Procedure & Operative Findings Date of Procedure 12/13/19 Procedure Performed/Findings exploratory laparotomy. ligation mesenteric vessel. splenectomy. Anesthesia Type get Estimated Blood Loss Estimated blood loss (mL): minimal Specimens/Packing Specimens Removed spleen KADIE CLAY MD Dec 13, 2019 13:36
[2019-12-13 13:37] LABS: BASOPHILS # (AUTO) 0.1 10^3/uL (0.0-0.1); BASOPHILS % (AUTO) 2 % (0-10); EOSINOPHILS % (AUTO) 0 % (0-10); HEMATOCRIT 25 % (40-54); LYMPHOCYTES # (AUTO) 1.3 X 10^3 (1.0-4.0); LYMPHOCYTES % (AUTO) 16 % (12-44); MEAN CORPUSCULAR HEMOGLOBIN 29 PG (25-34); MEAN CORPUSCULAR HGB CONC 33 G/DL (32-36); MEAN CORPUSCULAR VOLUME 89 FL (80-99); MEAN PLATELET VOLUME 10.1 FL (7.4-10.4); MONOCYTES # (AUTO) 0.9 X 10^3 (0.0-1.0); MONOCYTES % (AUTO) 11 % (0-12); NEUTROPHILS # (AUTO) 6.2 X 10^3 (1.8-7.8); NEUTROPHILS % (AUTO) 72 % (42-75); PLATELET COUNT 108 10^3/uL (130-400); RED CELL DISTRIBUTION WIDTH 16.9 % (10.0-14.5); WHITE BLOOD COUNT 8.6 10^3/uL (4.3-11.0)
[2019-12-13 13:40] LABS: BILIRUBIN,URINE NEGATIVE (NEGATIVE); CLARITY,URINE SL CLOUDY; COLOR,URINE YELLOW; GLUCOSE, URINE (UA) NEGATIVE (NEGATIVE); KETONES,URINE NEGATIVE (NEGATIVE); LEUKOCYTE ESTERASE ,URINE NEGATIVE (NEGATIVE); NITRITE,URINE NEGATIVE (NEGATIVE); PH,URINE 5.5 (5-9); PROTEIN,URINE TRACE (NEGATIVE)
[2019-12-13] MEDS: PIPERACILLIN/TAZO 4.5 GM/NS 100 ML IV SCH ×4 (13:40→21:59)
[2019-12-13 13:41] LABS: HEMOGLOBIN 8.1 G/DL (13.3-17.7)
--- NOTE | 2019-12-13 13:55 | Diagnostic Imaging Report ---
Dick Roland DB: 1950 EXAMINATION: Single view chest on 12/11 at 12:41 PM. INDICATION: Hypoxia. Correlation is made with prior chest from 12/06/2019. NG tube passes into the stomach. There is a left sided line has tip overlying SVC. Lungs are hyperinflated consistent with COPD. No infiltrates are seen. No effusion or pneumothorax. IMPRESSION: COPD. There has been improved aeration of both lung bases when compared with examination 6 days earlier. Dictated by: Dictated on workstation # [id number]
[2019-12-13 13:57] LABS: AMORPHOUS SEDIMENT,UR FEW AMOR URATES /LPF; BACTERIA,URINE TRACE /HPF; WBC,URINE 0-2 /HPF
--- NOTE | 2019-12-13 14:01 | NUR ---
DR TORRES INFORMED OF BS OF 60 AFTER AMP OF D50 WHILE IN OR/RECOVERY. NEW ORDERS RECEIVED TO CHANGE IVF TO D5NS@150ML/HR AND GIVE ANOTHER AMP OF D50.
[2019-12-13] MEDS ORDERED: D5 NS 1000 ML IV SOLUTION 1,000 ML IV ONE (14:02)
[2019-12-13 14:05] LABS: ALBUMIN 1.8 GM/DL (3.2-4.5); BILIRUBIN,TOTAL 0.6 MG/DL (0.1-1.0); CREATININE SERUM 1.79 MG/DL (0.60-1.30); PHOSPHORUS 5.1 MG/DL (2.3-4.7); POTASSIUM 4.9 MMOL/L (3.6-5.0); TOTAL PROTEIN 3.1 GM/DL (6.4-8.2)
[2019-12-13] MEDS: D5 NS 1000 ML IV SOLUTION 1,000 ML IV SCH ×2 (14:07→20:31)
--- NOTE | 2019-12-13 14:08 | Diagnostic Imaging Report ---
Indication: Respiratory distress Portable chest 8:53 PM There is ET tube projects over the trachea. NG tube projects over the stomach. Left subclavian central line tip projects over the SVC. There are emphysematous changes in the lungs. There are no infiltrates, effusions or pneumothoraces. Heart size and pulmonary vascularity are normal. IMPRESSION: COPD. No acute abnormality seen. Dictated by: Dictated on workstation # [id number]
[2019-12-13 14:11] LABS: CALCIUM 5.6 MG/DL (8.5-10.1)
[2019-12-13] MEDS ORDERED: DEXTROSE 50% 50 ML (IMS) SYR IV ONE (14:15)
[2019-12-13 14:16] LABS: ANISOCYTOSIS SLIGHT; BAND NEUTROPHILS 31 %; BASOPHILS % (MANUAL) 0 %; BURR CELLS SLIGHT; ELLIPT/OVALOCYTES SLIGHT; EOSINOPHILS % (MANUAL) 0 %; LYMPHOCYTES % (MANUAL) 22 %; METAMYELOCYTES % 1 %; MONOCYTES % (MANUAL) 5 %; MYELOCYTES % 2 %; NEUTROPHILS % (MANUAL) 39 %; NUCLEATED RED BLOOD CELLS 2
--- NOTE | 2019-12-13 14:30 | NUR ---
LAB RESULTS GIVEN TO DR TORRES, NEW ORDERS RECEIVED.
[2019-12-13] MEDS: fentaNYL INJECTION 1,250 MCG in NS (IVPB) 250 ML IV SCH (14:44)
--- NOTE | 2019-12-13 15:26 | Diagnostic Imaging Report ---
INDICATION: Intubation. TIME OF EXAM: 03:13 p.m. COMPARISON: Correlation is made with prior chest earlier the same day. FINDINGS: ET tube has tip at the level of the clavicular heads. Left-sided line has tip overlying the SVC. There appears to be some minimal infiltrate in the left lung base. Otherwise, lungs are clear. There is no effusion or pneumothorax. IMPRESSION: 1. Endotracheal tube placement, as described. 2. Left basilar infiltrate. Dictated by: Dictated on workstation # [id number]
--- NOTE | 2019-12-13 16:19 | Progress Note - Hospitalist ---
Subjective HPI/CC On Admission Date Seen by Provider: Dec 12, 2019 Time Seen by Provider: 08:30 Pt is a 69yoCM with a PMH of HTN and COPD who was admitted for hemicolectomy due to colon cancer. He underwent surgery yesterday and I am consulted for medical management. He is hard of hearing but what he was able to answer he states he's hungry but having pain. He is using his MACHINE ACCOUNTANT and states it help. Otherwise he has not complaints. Subjective/Events-last exam he reports shortness of breath. His belly was distended. He had an NG tube put in and says that his breathing has improved since then. Focused Exam Lactate Level 12/12/19 11:20: Lactic Acid Level 3.07*H 12/12/19 13:30: Lactic Acid Level 2.86*H 12/12/19 19:26: Lactic Acid Level 1.53 Objective Exam Vital Signs Vital Signs Date Time Temp Pulse Resp B/P (MAP) Pulse Ox O2 Delivery O2 Flow Rate FiO2 12/13/19 15:56 36.7 131 18 95/62 93 Mechanical Ventilator 40 12/13/19 15:10 40.00 Capillary Refill : Less Than 3 SecondsGreater Than 3 Seconds General Appearance: Anxious, Moderate Distress Respiratory: Lungs Clear, Respiratory Distress (tachypnea) Cardiovascular: No Murmur, Tachycardia (regular rhythm) Gastrointestinal: Abnormal Bowel Sounds (hypoactive), Distended, Tenderness Extremity: Normal Inspection, Non Tender, No Pedal Edema Neurologic/Psychiatric: Alert, Oriented x3, No Motor/Sensory Deficits Skin: Cool, Mottled, Pallor Results/Procedures Lab Laboratory Tests 12/12/19 16:25 12/12/19 18:00 12/12/19 20:33 12/13/19 03:00 12/13/19 11:58 12/13/19 13:13 Patient resulted labs reviewed. Imaging: Reviewed Imaging Report Assessment/Plan Assessment and Plan Assess & Plan/Chief Complaint Hemorrhagic shock Acute blood loss anemia Postoperative anemia Status post hemicolectomy Hypotensive and tachycardic Significant bloody output from the FRANK drain normal saline bolus 2 ordered 2 units unmatched PRBC ordered Stat labs ordered, type and screen Transferred to ICU spoke with Ren Campa, surgery, regarding patient status Dr. Duarte, surgeon, to evaluate patient Levophed as needed Critical Care Critically Ill Patient CC TIME : Critical Care Start Date: Dec 12, 2019 Critical Care Start Time: 08:45 Stop date: Dec 12, 2019 Stop Time: 09:15 Diagnosis/Problems Diagnosis/Problems (1) Postoperative hemorrhagic shock Status: Acute (2) Acute blood loss anemia Status: Acute (3) Status post right hemicolectomy Status: Acute Clinical Quality Measures DVT/VTE Risk/Contraindication: Risk Factor Score Per Nursin RFS Level Per Nursing on Admit: 4+=Very High MARLEE WINKLER MD Dec 13, 2019 16:19
--- NOTE | 2019-12-13 16:27 | Progress Note - Hospitalist ---
Subjective HPI/CC On Admission Date Seen by Provider: Dec 13, 2019 Time Seen by Provider: 09:45 Pt is a 69yoCM with a PMH of HTN and COPD who was admitted for hemicolectomy due to colon cancer. He underwent surgery yesterday and I am consulted for medical management. He is hard of hearing but what he was able to answer he states he's hungry but having pain. He is using his HOSTLER HELPER and states it help. Otherwise he has not complaints. Subjective/Events-last exam he is intubated and sedated. Focused Exam Lactate Level 12/12/19 11:20: Lactic Acid Level 3.07*H 12/12/19 13:30: Lactic Acid Level 2.86*H 12/12/19 19:26: Lactic Acid Level 1.53 Objective Exam Vital Signs Vital Signs Date Time Temp Pulse Resp B/P (MAP) Pulse Ox O2 Delivery O2 Flow Rate FiO2 12/13/19 15:56 36.7 131 18 95/62 93 Mechanical Ventilator 40 12/13/19 15:10 40.00 Capillary Refill : Less Than 3 SecondsGreater Than 3 Seconds General Appearance: No Apparent Distress, Other (intubated and sedated) Respiratory: Lungs Clear, Normal Breath Sounds, Other (intubated and mechanically ventilated) Cardiovascular: No Murmur, Tachycardia (regular rhythm) Gastrointestinal: Abnormal Bowel Sounds (hypoactive), Distended Extremity: Normal Inspection, Non Tender, No Pedal Edema Neurologic/Psychiatric: Other (sedated) Skin: Cool, Mottled, Pallor Results/Procedures Lab Laboratory Tests 12/12/19 16:25 12/12/19 18:00 12/12/19 20:33 12/13/19 03:00 12/13/19 11:58 12/13/19 13:13 Patient resulted labs reviewed. Imaging: Reviewed Imaging Report Assessment/Plan Assessment and Plan Assess & Plan/Chief Complaint Hemorrhagic shock Acute blood loss anemia Postoperative anemia Status post hemicolectomy Septic shock Secondary bacterial peritonitis Continued bloody output from the FRANK drain status post 6 units PRBC 2 units of FFP ordered Add 1 unit of platelets normal saline 150 mL/hour currently on Levophed and epinephrine remains intubated and sedated following surgery yesterday continue Zosyn eICU and pulmonology consulted Returned to OR yesterday, no active bleeding identified planning to return to OR today Critical Care Critically Ill Patient Diagnosis/Problems Diagnosis/Problems (1) Postoperative hemorrhagic shock Status: Acute (2) Acute blood loss anemia Status: Acute (3) Status post right hemicolectomy Status: Acute Clinical Quality Measures DVT/VTE Risk/Contraindication: Risk Factor Score Per Nursin RFS Level Per Nursing on Admit: 4+=Very High MARLEE WINKLER MD Dec 13, 2019 16:27
[2019-12-13] MEDS ORDERED: POTASSIUM CHLORIDE IV SCH ×10 (17:00)
[2019-12-13] MEDS ORDERED: 1/2 NS IV SOLUTION 1,000 ML IV SCH (17:00)
[2019-12-13] MEDS ORDERED: [UNRECOGNIZED DRUG - OTHER] IV SCH ×10 (17:00)
[2019-12-13] MEDS ORDERED: SODIUM CHLORIDE IV SCH ×10 (17:00)
[2019-12-13 17:30] LABS: HEMATOCRIT 33 % (40-54); HEMOGLOBIN 11.2 G/DL (13.3-17.7); MEAN CORPUSCULAR HEMOGLOBIN 29 PG (25-34); MEAN CORPUSCULAR HGB CONC 34 G/DL (32-36); MEAN CORPUSCULAR VOLUME 87 FL (80-99); PLATELET COUNT 151 10^3/uL (130-400); RED CELL DISTRIBUTION WIDTH 16.2 % (10.0-14.5); WHITE BLOOD COUNT 18.8 10^3/uL (4.3-11.0)
[2019-12-13 17:31] LABS: BASOPHILS # (AUTO) 0.1 10^3/uL (0.0-0.1); BASOPHILS % (AUTO) 1 % (0-10); EOSINOPHILS # (AUTO) 0.1 10^3/uL (0.0-0.3); EOSINOPHILS % (AUTO) 0 % (0-10); LYMPHOCYTES # (AUTO) 1.6 X 10^3 (1.0-4.0); LYMPHOCYTES % (AUTO) 9 % (12-44); MEAN PLATELET VOLUME 10.3 FL (7.4-10.4); MONOCYTES # (AUTO) 1.3 X 10^3 (0.0-1.0); MONOCYTES % (AUTO) 7 % (0-12); NEUTROPHILS # (AUTO) 15.7 X 10^3 (1.8-7.8); NEUTROPHILS % (AUTO) 84 % (42-75)
[2019-12-13 17:33] LABS: ABG BASE EXCESS -10.1 MMOL/L (-2.5-2.5); ABG PCO2 63 MMHG (35-45); ABG PO2 58 MMHG (79-93); ABG TCO2 20.1 MMOL/L (21.0-31.0)
[2019-12-13 17:34] LABS: ABG OXYGEN SATURATION 88 % (94-100); ALLENS TEST ART LINE; INSPIRED O2 40%; PATIENT TEMP 36.9; VENTILATOR YES
[2019-12-13 17:38] LABS: ABG PH 7.09 (7.37-7.43)
[2019-12-13 17:42] LABS: INR 1.2 (0.8-1.4); PROTHROMBIN TIME PATIENT 15.5 SEC (12.2-14.7)
[2019-12-13 17:47] LABS: CREATININE SERUM 1.87 MG/DL (0.60-1.30); MAGNESIUM 1.7 MG/DL (1.6-2.4); PHOSPHORUS 5.8 MG/DL (2.3-4.7); POTASSIUM 4.9 MMOL/L (3.6-5.0); TOTAL PROTEIN 3.6 GM/DL (6.4-8.2)
[2019-12-13 18:18] LABS: CALCIUM 5.7 MG/DL (8.5-10.1)
--- NOTE | 2019-12-13 18:20 | NUR ---
RECENT LAB RESULTS GIVEN TO DR TORRES.
[2019-12-13] MEDS ORDERED: SODIUM BICARB 8.4% 50 MEQ/50 ML VIAL IV ONE (19:15)
[2019-12-13] MEDS ORDERED: SODIUM BICARB 8.4% 50 MEQ/50 ML VIAL ONE (20:09)
[2019-12-13 20:20] LABS: ABG PCO2 52 MMHG (35-45); ABG PO2 71 MMHG (79-93)
[2019-12-13 20:21] LABS: ABG BASE EXCESS -10.3 MMOL/L (-2.5-2.5); ABG OXYGEN SATURATION 94 % (94-100); ABG TCO2 18.7 MMOL/L (21.0-31.0); ALLENS TEST ART LINE; INSPIRED O2 50%; PATIENT TEMP 36.8; VENTILATOR YES
[2019-12-13 20:25] LABS: ABG PH 7.14 (7.37-7.43)
[2019-12-14] VITALS (34 sets, daily range): BP systolic 84–129; BP diastolic 23–90
[2019-12-14] MEDS: inSUlin ASPART (NovoLOG) 1 UNIT/0.01 ML (CHARGE PER UNIT) SQ SCH ×7 (00:25→23:54)
[2019-12-14] MEDS: NOREPINEPHRINE 8 MG in NS (IVPB) 250 ML IV SCH ×7 (00:48→20:37)
[2019-12-14 01:15] LABS: BASOPHILS # (AUTO) 0.1 10^3/uL (0.0-0.1); BASOPHILS % (AUTO) 0 % (0-10); EOSINOPHILS % (AUTO) 0 % (0-10); HEMATOCRIT 29 % (40-54); HEMOGLOBIN 10.3 G/DL (13.3-17.7); LYMPHOCYTES # (AUTO) 1.2 X 10^3 (1.0-4.0); LYMPHOCYTES % (AUTO) 4 % (12-44); MEAN CORPUSCULAR HEMOGLOBIN 30 PG (25-34); MEAN CORPUSCULAR HGB CONC 36 G/DL (32-36); MEAN CORPUSCULAR VOLUME 85 FL (80-99); MEAN PLATELET VOLUME 10.7 FL (7.4-10.4); MONOCYTES # (AUTO) 2.2 X 10^3 (0.0-1.0); MONOCYTES % (AUTO) 9 % (0-12); NEUTROPHILS # (AUTO) 22.9 X 10^3 (1.8-7.8); NEUTROPHILS % (AUTO) 87 % (42-75); PLATELET COUNT 154 10^3/uL (130-400); RED CELL DISTRIBUTION WIDTH 17.2 % (10.0-14.5); WHITE BLOOD COUNT 26.4 10^3/uL (4.3-11.0)
[2019-12-14 01:18] LABS: INR 1.2 (0.8-1.4); PROTHROMBIN TIME PATIENT 15.7 SEC (12.2-14.7)
[2019-12-14 01:29] LABS: ALBUMIN 1.8 GM/DL (3.2-4.5); BILIRUBIN,TOTAL 1.3 MG/DL (0.1-1.0); CREATININE SERUM 2.19 MG/DL (0.60-1.30); MAGNESIUM 1.6 MG/DL (1.6-2.4); PHOSPHORUS 4.3 MG/DL (2.3-4.7); POTASSIUM 4.7 MMOL/L (3.6-5.0); TOTAL PROTEIN 3.5 GM/DL (6.4-8.2)
[2019-12-14] MEDS: EPINEPHrine 1 MG INJECTION 2 MG in NS (IVPB) 248 ML IV SCH ×7 (01:35→20:28)
[2019-12-14 01:52] LABS: CALCIUM 5.7 MG/DL (8.5-10.1)
[2019-12-14] MEDS: D5 NS 1000 ML IV SOLUTION 1,000 ML IV SCH (03:12)
[2019-12-14 03:24] LABS: ABG BASE EXCESS -9.3 MMOL/L (-2.5-2.5); ABG OXYGEN SATURATION 95 % (94-100); ABG PCO2 41 MMHG (35-45); ABG PO2 71 MMHG (79-93); ABG TCO2 18.2 MMOL/L (21.0-31.0)
[2019-12-14 03:28] LABS: ABG PH 7.24 (7.37-7.43); ALLENS TEST ART LINE; INSPIRED O2 28%; PATIENT TEMP 36.4; VENTILATOR YES
[2019-12-14 03:37] LABS: ALBUMIN 1.8 GM/DL (3.2-4.5); BILIRUBIN,TOTAL 1.1 MG/DL (0.1-1.0); CREATININE SERUM 2.12 MG/DL (0.60-1.30); MAGNESIUM 1.6 MG/DL (1.6-2.4); POTASSIUM 4.5 MMOL/L (3.6-5.0); TOTAL PROTEIN 3.4 GM/DL (6.4-8.2)
[2019-12-14 03:39] LABS: CALCIUM 5.6 MG/DL (8.5-10.1)
[2019-12-14 03:44] LABS: FIBRIN DEGRADATION PRODUCTS 2.4 UG/ML (0.00-0.49); INR 1.3 (0.8-1.4); PROTHROMBIN TIME PATIENT 16.1 SEC (12.2-14.7)
[2019-12-14] MEDS: PROPOFOL DRIP (ICU) 100 ML IV SCH ×3 (03:50→18:34)
--- NOTE | 2019-12-14 04:18 | NUR ---
0407 PATIENT HR NOTED TO BE 170 ON HEART MONITOR. STAT EKG PERFORMED. FAXED TO TELE-ICU. CALLED E-ICU TO UPDATE.
--- NOTE | 2019-12-14 04:19 | Pulmonary Progress Note ---
Subjective Time Seen by a Provider: 04:15 Subjective/Events-last exam Pt is sedated on vent. Sepsis Event Evaluation Height, Weight, BMI Height: '" Weight: lbs. oz. kg; 27.93 BMI Method: Focused Exam Lactate Level 12/12/19 11:20: Lactic Acid Level 3.07*H 12/12/19 13:30: Lactic Acid Level 2.86*H 12/12/19 19:26: Lactic Acid Level 1.53 Exam Exam Vital Signs Date Time Temp Pulse Resp B/P (MAP) Pulse Ox O2 Delivery O2 Flow Rate FiO2 12/14/19 03:53 100 Mechanical Ventilator 50 12/14/19 03:50 106 106/59 12/14/19 02:51 108 15 100 50 12/14/19 01:00 120 12/14/19 00:00 36.9 88/61 (70) Mechanical Ventilator 50.00 101/64 (76) 12/14/19 00:00 100 Mechanical Ventilator 50 12/13/19 23:13 121 19 100 50 12/13/19 23:00 116 21 92/59 (70) 100 Mechanical Ventilator 50.00 12/13/19 22:00 112 21 80/54 (63) 100 Mechanical Ventilator 50.00 12/13/19 21:00 112 21 91/56 (68) 100 Mechanical Ventilator 50.00 12/13/19 20:31 114 102/61 12/13/19 20:00 117 20 87/55 (66) 100 Mechanical Ventilator 50.00 12/13/19 20:00 100 Mechanical Ventilator 50 12/13/19 19:00 36.9 Mechanical Ventilator 50.00 12/13/19 19:00 118 24 88/56 (67) 100 Mechanical Ventilator 50.00 12/13/19 19:00 120 12/13/19 18:43 121 19 97 40 12/13/19 18:21 36.7 12/13/19 18:00 124 18 103/60 (74) 92 Mechanical Ventilator 40.00 12/13/19 17:00 129 12 91/51 (64) 93 Mechanical Ventilator 40.00 12/13/19 16:38 36.9 129 18 86/52 93 Mechanical Ventilator 40 12/13/19 16:30 Mechanical Ventilator 40 12/13/19 16:18 37.1 131 18 88/59 91 Mechanical Ventilator 40 12/13/19 16:00 128 18 82/51 (61) 94 Mechanical Ventilator 40.00 12/13/19 15:56 36.7 131 18 95/62 93 Mechanical Ventilator 40 12/13/19 15:51 36.8 12/13/19 15:30 36.5 12/13/19 15:28 36.5 125 18 97/61 90 Mechanical Ventilator 40 12/13/19 15:10 Mechanical Ventilator 40.00 12/13/19 15:08 113 18 97 40 12/13/19 15:00 123 18 108/76 (87) 95 Mechanical Ventilator 50.00 12/13/19 14:35 36.1 113 18 102/68 96 Mechanical Ventilator 40 12/13/19 14:23 36.3 113 18 107/67 97 Mechanical Ventilator 50 12/13/19 14:00 114 18 105/65 (78) 96 Mechanical Ventilator 50.00 12/13/19 13:34 36.0 12/13/19 13:30 Mechanical Ventilator 50 12/13/19 13:30 36.1 18 99 50 12/13/19 13:29 109 121/54 12/13/19 13:25 Mechanical Ventilator 50 12/13/19 13:20 18 99 50 12/13/19 13:20 Mechanical Ventilator 50 12/13/19 13:10 18 99 Mechanical Ventilator 50 12/13/19 13:09 116 12/13/19 13:05 Mechanical Ventilator 50 12/13/19 13:00 18 99 Mechanical Ventilator 50 12/13/19 13:00 115 18 153/67 (95) 100 Mechanical Ventilator 50.00 12/13/19 12:51 Mechanical Ventilator 50 12/13/19 12:51 36.1 18 100 Mechanical Ventilator 50 12/13/19 12:51 Mechanical Ventilator 50 12/13/19 10:00 118 27 153/67 (95) 100 Mechanical Ventilator 50.00 12/13/19 09:00 Mechanical Ventilator 50 12/13/19 09:00 129 28 124/58 (80) 100 Mechanical Ventilator 50.00 12/13/19 08:00 137 102/53 (69) 100 Mechanical Ventilator 50.00 12/13/19 08:00 36.9 12/13/19 07:00 137 38 80/56 (64) 100 Mechanical Ventilator 50.00 I & O 12/14/19 07:00 Intake Total 7162 ml Output Total 3200 ml Balance 3962 ml Height & Weight Height: '" Weight: lbs. oz. kg; 27.93 BMI Method: General Appearance: Other (intubated and sedated) HEENT: PERRL/EOMI Neck: Full Range of Motion Respiratory: Lungs Clear, Normal Breath Sounds, Other (intubated and mechanically ventilated) Cardiovascular: No Murmur, Tachycardia (regular rhythm) Capillary Refill: Greater Than 3 Seconds Gastrointestinal: soft, distended Extremity: Normal Inspection, Non Tender, No Pedal Edema Neurologic/Psychiatric: Other (sedated) Skin: Cool, Mottled, Pallor Lymphatic: No Adenopathy Results Lab Laboratory Tests 12/12/19 08:47 12/12/19 13:30 12/12/19 16:25 12/12/19 18:00 12/12/19 20:33 12/13/19 03:00 12/13/19 11:58 12/13/19 13:13 12/13/19 17:00 12/14/19 01:00 12/14/19 03:02 Assessment/Plan Assessment/Plan s/p elective laparoscopic right hemicolectomy on 12/02 s/p repeat surgery secondary to intra abdominal hemorrhage 12/05 s/p repeat surgery 12/06 secondary to intra abdominal hemorrhage (exploratory laparotomy, ligation mesenteric vessel, splenectomy.) Acute respiratory failure -Pt is intubated on vent -Propofol and fentanyl gtt -Labs and radiology reviewed Acute severe sepsis with septic shock -Currently on Zosyn -Joseph cultures Ecoli and Klebsiella from peritoneal fluid -WBC started increasing after last surgery. This is probably reactive le ukocytosis. Will repeat cultures including FRANK drains -Sputum culture is pending. -Pt is on Levophed-- Change to Neosynephrin and vasopressin -Start Solucortef -IVF currently NS Acute Afib started at 0408 with hypotension -Will start Amio gtt with amio bolus -Give liter bolus of LR. Hypoglycemia - resolved -Insulin gtt has been d/c'd -Monitor Nonanion gapped metabolic acidosis -Change IVF to bicarb gtt s/p Bleeding -- Hb has now stabilized -Dr. Duarte is aware - Pt is now s/p 10 units of PRBC. s/p FFP and Platelets Acute renal failure -IVF -Monitor Colon cancer s/p resection CHRIS TORRES DO Dec 14, 2019 04:18
[2019-12-14] MEDS ORDERED: PHENYLEPHRINE INJ 10 MG/ML (FOR DRIP KITS ONLY) ONE (04:25)
[2019-12-14] MEDS ORDERED: NS (IVPB) 250 ML ONE (04:25)
[2019-12-14] MEDS ORDERED: VASOPRESSIN INJECTION 20 UNIT in NORMAL SALINE 100 ML IV SCH (04:39)
[2019-12-14] MEDS ORDERED: AMIODARONE (OMNICELL DRIP KIT) 150 MG/3 ML IV ONE (04:40)
[2019-12-14] MEDS ORDERED: AMIODARONE 450 MG/9 ML (CORDARONE) VIAL IV ONE (04:40)
[2019-12-14] MEDS ORDERED: D5W IV SOLUTION (EXCEL) 250 ML IV ONE (04:41)
[2019-12-14] MEDS ORDERED: D5W 100 ML IVPB 100 ML IV ONE (04:41)
[2019-12-14] MEDS: PHENYLEPHRINE INJECTION 10 MG in NS (IVPB) 250 ML IV SCH ×3 (04:43→09:17)
[2019-12-14] MEDS ORDERED: AMIODARONE INJECTION 150 MG in D5W 100 ML IVPB 100 ML IV ONE (04:45)
[2019-12-14] MEDS ORDERED: SODIUM BICARB 8.4% 50 MEQ/50 ML VIAL IV ONE (04:45)
[2019-12-14 04:49] LABS: BASOPHILS # (AUTO) 0.1 10^3/uL (0.0-0.1); BASOPHILS % (AUTO) 0 % (0-10); EOSINOPHILS # (AUTO) 0.1 10^3/uL (0.0-0.3); EOSINOPHILS % (AUTO) 0 % (0-10); HEMATOCRIT 28 % (40-54); HEMOGLOBIN 9.6 G/DL (13.3-17.7); LYMPHOCYTES # (AUTO) 1.2 X 10^3 (1.0-4.0); LYMPHOCYTES % (AUTO) 4 % (12-44); MEAN CORPUSCULAR HEMOGLOBIN 30 PG (25-34); MEAN CORPUSCULAR HGB CONC 35 G/DL (32-36); MEAN CORPUSCULAR VOLUME 85 FL (80-99); MEAN PLATELET VOLUME 11.1 FL (7.4-10.4); MONOCYTES # (AUTO) 2.4 X 10^3 (0.0-1.0); MONOCYTES % (AUTO) 9 % (0-12); NEUTROPHILS # (AUTO) 23.6 X 10^3 (1.8-7.8); NEUTROPHILS % (AUTO) 86 % (42-75); PLATELET COUNT 151 10^3/uL (130-400); RED CELL DISTRIBUTION WIDTH 17.4 % (10.0-14.5); WHITE BLOOD COUNT 27.4 10^3/uL (4.3-11.0)
[2019-12-14] MEDS ORDERED: CALCIUM GLUC. 10% 4.65 MEQ/10 ML VIAL IV ONE ×2 (05:00→15:30)
[2019-12-14] MEDS ORDERED: NS (IVPB) 100 ML ONE (05:04)
[2019-12-14] MEDS ORDERED: LACTATED RINGERS 1,000 ML IV SCH (05:15)
[2019-12-14] MEDS: SODIUM BICARBONATE 8.4% VIAL 100 MEQ in 1/2 NS IV SOLUTION 1,000 ML IV SCH ×3 (05:27→19:51)
[2019-12-14] MEDS: fentaNYL INJECTION 1,250 MCG in NS (IVPB) 250 ML IV SCH ×2 (05:42→16:30)
[2019-12-14] MEDS: MAGNESIUM 1 GM/100 ML IVPB 100 ML IV SCH ×5 (05:54→23:54)
[2019-12-14] MEDS: D5 LR IV SOLUTION 1,000 ML IV SCH (05:57)
[2019-12-14] MEDS: HYDROCORTISONE 100 MG/2 ML (Solu-CORTEF) VIAL IV SCH ×3 (05:58→22:39)
[2019-12-14] MEDS: KCL 20 MEQ TAB (K-DUR) PO SCH (05:58)
[2019-12-14] MEDS: POTASSIUM CL 10MEQ/50ML IVPB 50 ML IV SCH (05:59)
[2019-12-14] MEDS: PIPERACILLIN/TAZO 4.5 GM/NS 100 ML IV SCH ×6 (06:08→22:39)
--- NOTE | 2019-12-14 06:10 | OPERATIVE REPORT ---
DATE OF SERVICE: 12/13/2019 DATE OF ADMISSION: 12/06/2019. ATTENDING PRIMARY CARE PHYSICIAN: Christophe Smart MD PREOPERATIVE DIAGNOSIS: Recurrent intra-abdominal hemorrhage, status post laparoscopic right hemicolectomy on 12/06/2019. POSTOPERATIVE DIAGNOSES: Right colonic mesenteric bleeding, splenic mesenteric bleeding. PROCEDURE: Exploratory laparotomy and suture ligation right colonic mesentery, splenectomy. SURGEON: Attila Duarte MD SUPERVISOR BROADLOOM: Ren Campa APRN ANESTHESIA: General endotracheal. ESTIMATED BLOOD LOSS: 3500 mL. FINDINGS: A larger vessel arterial bleeding identified from the previous mesentery of the right colon. This was closed the day previous. However, after opening this area up, a larger blood vasculature bleeding was identified. There was also significant amount of blood identified in the left subphrenic region and this was explored and there was active bleeding identified at the splenic hilum. DISPOSITION: The patient tolerated the procedure well. INDICATIONS: The patient is a 69-year-old male who was found to have a large polyp of the ascending colon, which was biopsied and did show adenocarcinoma. He then underwent a laparoscopic right hemicolectomy on 12/06/2019. He did well postoperatively; however, on postoperative day #4, developed significant amount of FRANK output drainage. He then underwent an IVP CT of the abdomen and pelvis, which did not show any ureteral leak or injury. The FRANK drain output was also sent for creatinine, which was consistent with peritoneal fluid. His hemoglobin on a daily basis was anywhere from 12 to the [address] scan did show an ileus and he was placed back on clear liquid diet. The following day, he had continued copious drainage out of a Juan-Godfrey drain, which did change in color to a dark sanguinous color. Due to the continued symptoms, we decided to proceed with an exploratory laparotomy. On 12/12/2019, he underwent an exploratory laparotomy and was found to have mild oozing from the previously dissected area of the colonic mesentery as well as the greater omentum; however, nothing significant with not much blood within the peritoneal cavity. Another Juan-Godfrey drain was placed. Overnight in the chronometer tester hours, he again developed copious amounts of bloody drainage from both the Juan-Godfrey drains and at this time around did show a significant drop in hemoglobin levels. He was transfused packed red blood cells; however, continued to have a copious amount of output as well as he become symptomatic with tachycardia as well as hypotension and it was decided to bring him back to the OR for reexploration. DESCRIPTION OF PROCEDURE: The abdomen was prepped and draped in standard surgical fashion. The previous external sutures were cut using suture scissors. The fascial suture was cut and then removed and a 4-quadrant abdominal exploration was performed. There was a significant amount of clotted blood in the right pericolic gutter, which was suctioned out. After further investigation of the previous suture mesentery of the right colon, significantly larger blood vessel was bleeding and this appeared to be arterial. This was suture ligated using 3-0 silk suture as well as 2-0 Vicryl suture. Good hemostasis was observed. We then checked the lower quadrants of the pelvis where only a small amount of old clotted blood was identified. In the left subphrenic space, the most amount of clotted blood, which was significant. This was evacuated out. Upon further exploration, there appeared to be bleeding coming from the base of the mesentery of the spleen. Due to the location of the bleeding as well as the number of vasculature in this region, it was decided to proceed with a splenectomy and the short gastric vessels were taken down using Sonicision. The pedicle was then isolated and this was cauterized and transected using the Sonicision with visualization of good hemostasis. All 4 quadrants were then copiously irrigated with warm saline and suctioned out and then packs placed. The packs then removed after approximately 15-30 minutes with good hemostasis observed in all 4 quadrants. Both 19-[place] Juan-Godfrey drains were maintained in the peritoneal cavity, one in the left subphrenic space and the other one in the right pericolic gutter close to the mesentery as well as the anastomosis. The fascia was then closed without tension using #1 looped PDS suture starting superiorly and inferiorly and tied in the middle. A few external skin sutures were placed using interrupted 3-0 nylon sutures. Wound was then cleaned and covered with gauze followed by tape. The patient tolerated the procedure well. He will stay on the ventilator for at least the next 24 hours, especially due to the significant amount of transfusion of blood and blood products as well as IV fluids. The patient remains in critical condition and this was explained to the patient's mother. The mother is in full understanding and states that the patient did not want heroic measures or significant resuscitative measures done and it was explained to her that the next 3 to 5 days we will determine if he will continue to worsen or need a long-term care and at that time, we can make a decision on making him comfort care only and fulfill the patient's wishes. Job ID: [id number] DocumentID: [id number] Dictated Date: 12/13/2019 18:20:13 Restaurant Greeter Date: 12/14/2019 06:09:45 Dictated By: ATTILA DUARTE MD MTDD
[2019-12-14] MEDS: NON-FORMULARY MEDICATION 1 EA EA (Fluticasone/Umeclidin/Vilanter (Trelegy Ellipta 100-62.5 IH SCH (06:24)
[2019-12-14] MEDS: NICOTINE PATCH REMOVAL TP SCH (06:42)
[2019-12-14] MEDS: AMIODARONE INJECTION 450 MG in D5W IV SOLUTION (EXCEL) 250 ML IV SCH ×2 (06:43→12:23)
[2019-12-14] MEDS: BROMOCRIPTINE 2.5 MG PO SCH ×2 (07:33→17:33)
[2019-12-14] MEDS: SENNA W/DOCUSATE (SENOKOT S) TABLET PO SCH (07:34)
[2019-12-14] MEDS: PANTOPRAZOLE 40 MG (PROTONIX) VIAL IV SCH ×2 (07:47→22:38)
--- NOTE | 2019-12-14 08:35 | Diagnostic Imaging Report ---
Portable semierect AP chest at 539 hours. INDICATION: Postop. FINDINGS: The heart size is within normal limits and stable when compared to 12/13/2019. The atelectasis/infiltrate in the left lung base seen previously has diminished slightly. The lungs are otherwise generally clear. The mediastinum is not widened. The osseous structures are intact. The supportive tubes and lines seen on the prior study are again evident and unchanged in position. IMPRESSION: The appearance of the chest has improved somewhat as the left lung base does seem slightly better aerated. A follow-up exam would be recommended for continued evaluation. Dictated by: Dictated on workstation # [id number]
[2019-12-14] MEDS ORDERED: ALBUMIN 25% 25 GM/100 ML 100 ML IV ONE ×2 (10:15)
[2019-12-14] MEDS: ARFORMOTEROL 15 MCG/2 ML (BROVANA) INH SOLUTIION IH SCH ×2 (10:33→19:19)
--- NOTE | 2019-12-14 10:35 | Diagnostic Imaging Report ---
INDICATION: Respiratory distress Portable chest 3:51 AM There is ET tube projecting over the trachea. There is an NG tube that enters the stomach. Left subclavian central line tip projects over the SVC. There are emphysematous changes in the lungs. There are no infiltrates, effusions or pneumothoraces. IMPRESSION: COPD. No acute abnormality seen. Dictated by: Dictated on workstation # [id number]
--- NOTE | 2019-12-14 10:49 | Anesthesia-General Post-Op ---
General Patient Condition Mental Status/LOC: Unreactive (sedated on vent currently) Cardiovascular: Unsatisfactory (developed A-fib with hypotension overnight) Nausea/Vomiting: Absent Respiratory: Satisfactory (sedated on vent) Pain: Controlled (propofol and fentanyl drip currently) Post Op Complications Complications None Follow Up Care/Instructions Patient Instructions None needed. Anesthesia/Patient Condition Patient Condition Patient is sedated on vent, Hb has stabilized, no apparent adverse anesthesia problems. Will be available as needed going forward. [place] [facility] [place] [facility] [place]: RJEI Martinez DO Dec 14, 2019 10:49
[2019-12-14] MEDS ORDERED: ANIDULAFUNGIN INJECTION 200 MG in NS (IVPB) 250 ML IV ONE (11:00)
[2019-12-14] MEDS: PHENYLEPHRINE INJECTION 40 MG in NS (IVPB) 250 ML IV SCH ×2 (11:03→16:11)
--- NOTE | 2019-12-14 11:12 | Progress Note ---
Subjective Date Seen by a Provider: Dec 14, 2019 Time Seen by a Provider: 10:00 Subjective/Events-last exam on vent/sedated. remains critically ill. metabolic acidosis and hypotension requiring pressors. hb stable with minimal drain SS output. urine output improving. Focused Exam Lactate Level 12/14/19 05:05: Lactic Acid Level 2.11*H 12/14/19 07:45: Lactic Acid Level 2.58*H 12/14/19 09:25: Lactic Acid Level 2.61*H Lactic Acid Level Laboratory Tests Test 12/14/19 07:45 12/14/19 09:25 Lactic Acid Level 2.58 MMOL/L (0.50-2.00) *H 2.61 MMOL/L (0.50-2.00) *H Objective Exam Vital Signs Date Time Temp Pulse Resp B/P (MAP) Pulse Ox O2 Delivery O2 Flow Rate FiO2 12/14/19 11:03 69 99/49 12/14/19 11:00 67 27 103/50 (67) 100 Mechanical Ventilator 40.00 12/14/19 10:42 67 28 100 40 12/14/19 10:33 66 97/50 12/14/19 10:00 65 35 126/90 (102) 96 Mechanical Ventilator 40.00 12/14/19 09:17 68 96/51 12/14/19 09:00 77 13 129/86 (100) 95 Mechanical Ventilator 40.00 12/14/19 08:11 40.00 12/14/19 08:11 36.1 12/14/19 08:00 Mechanical Ventilator 40 12/14/19 08:00 75 27 90/46 (61) 100 Mechanical Ventilator 40.00 12/14/19 07:38 72 108/52 12/14/19 07:00 118 12/14/19 07:00 74 28 107/53 (71) 100 Mechanical Ventilator 50.00 12/14/19 06:25 71 28 100 50 12/14/19 06:00 79 27 109/58 (75) 100 Mechanical Ventilator 50.00 12/14/19 05:00 154 27 91/60 (70) 98 Mechanical Ventilator 50.00 12/14/19 04:00 107 22 103/57 (72) 100 Mechanical Ventilator 50.00 12/14/19 03:53 100 Mechanical Ventilator 50 8/21/20 03:50 106 106/59 12/14/19 03:00 107 19 104/56 (72) 100 Mechanical Ventilator 50.00 12/14/19 02:51 108 15 100 50 12/14/19 02:00 122 18 88/54 (65) 100 Mechanical Ventilator 50.00 12/14/19 01:00 113 28 100/62 (75) 100 Mechanical Ventilator 50.00 12/14/19 01:00 120 12/14/19 00:00 36.9 88/61 (70) Mechanical Ventilator 50.00 101/64 (76) 12/14/19 00:00 117 16 84/59 (67) 100 Mechanical Ventilator 50.00 12/14/19 00:00 100 Mechanical Ventilator 50 12/13/19 23:13 121 19 100 50 12/13/19 23:00 116 21 92/59 (70) 100 Mechanical Ventilator 50.00 12/13/19 22:00 112 21 80/54 (63) 100 Mechanical Ventilator 50.00 12/13/19 21:00 112 21 91/56 (68) 100 Mechanical Ventilator 50.00 12/13/19 20:31 114 102/61 12/13/19 20:00 117 20 87/55 (66) 100 Mechanical Ventilator 50.00 12/13/19 20:00 100 Mechanical Ventilator 50 12/13/19 19:00 36.9 Mechanical Ventilator 50.00 12/13/19 19:00 118 24 88/56 (67) 100 Mechanical Ventilator 50.00 12/13/19 19:00 120 12/13/19 18:43 121 19 97 40 12/13/19 18:21 36.7 12/13/19 18:00 124 18 103/60 (74) 92 Mechanical Ventilator 40.00 12/13/19 17:00 129 12 91/51 (64) 93 Mechanical Ventilator 40.00 12/13/19 16:38 36.9 129 18 86/52 93 Mechanical Ventilator 40 12/13/19 16:30 Mechanical Ventilator 40 12/13/19 16:18 37.1 131 18 88/59 91 Mechanical Ventilator 40 12/13/19 16:00 128 18 82/51 (61) 94 Mechanical Ventilator 40.00 12/13/19 15:56 36.7 131 18 95/62 93 Mechanical Ventilator 40 12/13/19 15:51 36.8 12/13/19 15:30 36.5 12/13/19 15:28 36.5 125 18 97/61 90 Mechanical Ventilator 40 12/13/19 15:10 Mechanical Ventilator 40.00 12/13/19 15:08 113 18 97 40 12/13/19 15:00 123 18 108/76 (87) 95 Mechanical Ventilator 50.00 12/13/19 14:35 36.1 113 18 102/68 96 Mechanical Ventilator 40 12/13/19 14:23 36.3 113 18 107/67 97 Mechanical Ventilator 50 12/13/19 14:00 114 18 105/65 (78) 96 Mechanical Ventilator 50.00 12/13/19 13:34 36.0 12/13/19 13:30 Mechanical Ventilator 50 12/13/19 13:30 36.1 18 99 50 12/13/19 13:29 109 121/54 12/13/19 13:25 Mechanical Ventilator 50 12/13/19 13:20 18 99 50 12/13/19 13:20 Mechanical Ventilator 50 12/13/19 13:10 18 99 Mechanical Ventilator 50 12/13/19 13:09 116 12/13/19 13:05 Mechanical Ventilator 50 12/13/19 13:00 18 99 Mechanical Ventilator 50 12/13/19 13:00 115 18 153/67 (95) 100 Mechanical Ventilator 50.00 12/13/19 12:51 Mechanical Ventilator 50 12/13/19 12:51 36.1 18 100 Mechanical Ventilator 50 12/13/19 12:51 Mechanical Ventilator 50 I & O 12/14/19 07:00 Intake Total 8865 ml Output Total 3675 ml Balance 5190 ml Capillary Refill : Less Than 3 SecondsGreater Than 3 Seconds General Appearance: No Apparent Distress HEENT: PERRL/EOMI Neck: Full Range of Motion Respiratory: Rhonci, Wheezing Cardiovascular: Regular Rate, Rhythm Gastrointestinal: distended, tenderness Extremity: Slow Capillary Refill Neurologic/Psychiatric: Other (sedated) Skin: Normal Color Lymphatic: No Adenopathy Results Lab Laboratory Tests 12/13/19 11:58: Hemoglobin 3.6#*L, Hematocrit 11*L 12/13/19 13:13: Hemoglobin 8.1#L, Hematocrit 25L, White Blood Count 8.6, Red Blood Count 2.78L, Mean Corpuscular Volume 89, Mean Corpuscular Hemoglobin 29, Mean Corpuscular Hemoglobin Concent 33, Red Cell Distribution Width 16.9H, Platelet Count 108L, Mean Platelet Volume 10.1, Neutrophils (%) (Auto) 72, Lymphocytes (%) (Auto) 16, Monocytes (%) (Auto) 11, Eosinophils (%) (Auto) 0, Basophils (%) (Auto) 2, Neutrophils # (Auto) 6.2, Lymphocytes # (Auto) 1.3, Monocytes # (Auto) 0.9, Eosinophils # (Auto) 0.0, Basophils # (Auto) 0.1, Neutrophils % (Manual) 39, Lymphocytes % (Manual) 22, Monocytes % (Manual) 5, Eosinophils % (Manual) 0, Basophils % (Manual) 0, Metamyelocytes % 1, Myelocytes % 2, Band Neutrophils 31, Nucleated Red Blood Cells 2, Anisocytosis SLIGHT, Ofelia Cells SLIGHT, Elliptocytes SLIGHT, Sodium Level 131L, Potassium Level 4.9, Chloride Level 109H , Carbon Dioxide Level 17L, Anion Gap 5, Blood Urea Nitrogen 30H, Creatinine 1.79H, Estimat Glomerular Filtration Rate 38, BUN/Creatinine Ratio 17, Glucose Level 72, Calcium Level 5.6*L, Corrected Calcium 7.4L, Phosphorus Level 5.1H, To thor Bilirubin 0.6, Aspartate Amino Transf (AST/SGOT) 69H, Alanine Aminotransferase (ALT/SGPT) 28, Alkaline Phosphatase 21L, Total Protein 3.1L, Albumin 1.8L, Triglycerides Level 34 12/13/19 13:15: Urine Color YELLOW, Urine Clarity SL CLOUDY, Urine pH 5.5, Urine Specific Rifle 1.010L, Urine Protein TRACEH, Urine Glucose (UA) NEGATIVE, Urine Ketones NEGATIVE, Urine Nitrite NEGATIVE, Urine Bilirubin NEGATIVE, Urine Urobilinogen 0.2, Urine Leukocyte Esterase NEGATIVE, Urine RBC (Auto) 3+H, Urine RBC 5-10H, Urine WBC 0-2, Urine Squamous Epithelial Cells 2-5, Urine Crystals PRESENTH, Urine Amorphous Sediment FEW BARRY URATESH, Urine Bacteria TRACE, Urine Casts P RESENT, Urine Granular Casts 2-5H, Urine Mucus NEGATIVE, Urine Culture Indicated NO 12/13/19 17:00: Hemoglobin 11.2#L, Hematocrit 33L, White Blood Count 18.8H, Red Blood Count 3.84L, Mean Corpuscular Volume 87, Mean Corpuscular Hemoglobin 29, Mean Corpuscular Hemoglobin Concent 34, Red Cell Distribution Width 16.2H, Platelet Count 151, Mean Platelet Volume 10.3, Neutrophils (%) (Auto) 84H, Lymphocytes (%) (Auto) 9L, Monocytes (%) (Auto) 7, Eosinophils (%) (Auto) 0, Basophils (%) (Auto) 1, Neutrophils # (Auto) 15.7H, Lymphocytes # (Auto) 1.6, Monocytes # (Auto) 1.3H, Eosinophils # (Auto) 0.1, Basophils # (Auto) 0.1, Sodium Level 132L , Potassium Level 4.9, Chloride Level 109H, Carbon Dioxide Level 19L, Anion Gap 4L, Blood Urea Nitrogen 30H, Creatinine 1.87H, Estimat Glomerular Filtration Rate 36, BUN/Creatinine Ratio 16, Glucose Level 149H, Calcium Level 5.7*L, Corrected Calcium 7.3L, Phosphorus Level 5.8H, Total Bilirubin 2.0H, Aspartate Amino Transf (AST/SGOT) 74H, Alanine Aminotransferase (ALT/SGPT) 33, Alkaline Phosphatase 29L, Total Protein 3.6L, Albumin 2.0L, Prothrombin Time 15.5H, INR Comment 1.2, Activated Partial Thromboplast Time 34, Blood Gas Puncture Site ART LINE, Blood Gas Patient Temperature 36.9, Arterial Blood pH 7.09*L, Arterial Blood Partial Pressure CO2 63H, Arterial Blood Partial Pressure O2 58L, Arterial Blood HCO3 18L, Arterial Blood Total CO2 20.1L, Arterial Blood Oxygen Saturation 88L, Arterial Blood Base Excess -10.1L, Luke Test ART LINE, Blood Gas Ventilator Setting YES, Blood Gas Inspired Oxygen 40%, Magnesium Level 1.7 12/13/19 20:05: Blood Gas Puncture Site LEFT ART LINE, Blood Gas Patient Temperature 36.8, Arterial Blood pH 7.14*L, Arterial Blood Partial Pressure CO2 52H, Arterial Blood Partial Pressure O2 71L, Arterial Blood HCO3 17*L, Arterial Blood Total CO2 18.7L, Arterial Blood Oxygen Saturation 94, Arterial Blood Base Excess - 10.3L, Luke Test ART LINE, Blood Gas Ventilator Setting YES, Blood Gas Inspired Oxygen 50% 12/14/19 01:00: White Blood Count 26.4H, Red Blood Count 3.42L, Hemoglobin 10.3L, Hematocrit 29L , Mean Corpuscular Volume 85, Mean Corpuscular Hemoglobin 30, Mean Corpuscular Hemoglobin Concent 36, Red Cell Distribution Width 17.2H, Platelet Count 154, Mean Platelet Volume 10.7H, Neutrophils (%) (Auto) 87H, Lymphocytes (%) (Auto) 4L, Monocytes (%) (Auto) 9, Eosinophils (%) (Auto) 0, Basophils (%) (Auto) 0, Neutrophils # (Auto) 22.9H, Lymphocytes # (Auto) 1.2, Monocytes # (Auto) 2.2H, Eosinophils # (Auto) 0.0, Basophils # (Auto) 0.1, Prothrombin Time 15.7H, INR Comment 1.2, Activated Partial Thromboplast Time 34, Sodium Level 134L, Potassium Level 4.7, Chloride Level 110H, Carbon Dioxide Level 16L, Anion Gap 8, Blood Urea Nitrogen 34H, Creatinine 2.19H, Estimat Glomerular Filtration Rate 30, BUN/Creatinine Ratio 16, Glucose Level 152H, Calcium Level 5.7*L, Corrected Calcium 7.5L, Phosphorus Level 4.3, Magnesium Level 1.6, Total Bilirubin 1.3H, Aspartate Amino Transf (AST/SGOT) 58H, Alanine Aminotransferase (ALT/SGPT) 26, Alkaline Phosphatase 27L, Total Protein 3.5L, Albumin 1.8L 12/14/19 03:02: Blood Gas Puncture Site LEFT RADIAL, Blood Gas Patient Temperature 36.4, Arterial Blood pH 7.24*L, Arterial Blood Partial Pressure CO2 41, Arterial Blood Partial Pressure O2 71L, Arterial Blood HCO3 17*L, Arterial Blood Total CO2 18.2L, Arterial Blood Oxygen Saturation 95, Arterial Blood Base Excess -9.3L, Luke Test ART LINE, Blood Gas Ventilator Setting YES, Blood Gas Inspired Oxygen 28%, White Blood Count 27.4H, Red Blood Count 3.23L, Hemoglobin 9.6L, Hematocrit 28L, Mean Corpuscular Volume 85, Mean Corpuscular Hemoglobin 30, Mean Corpuscular Hemoglobin Concent 35, Red Cell Distribution Width 17.4H, Platelet Count 151, Mean Platelet Volume 11.1H, Neutrophils (%) (Auto) 86H, Lymphocytes (%) (Auto) 4L, Monocytes (%) (Auto) 9, Eosinophils (%) (Auto) 0, Basophils (%) (Auto) 0, Neutrophils # (Auto) 23.6H, Lymphocytes # (Auto) 1.2, Monocytes # (Auto) 2.4H, Eosinophils # (Auto) 0.1, Basophils # (Auto) 0.1, Prothrombin Time 16.1H, INR Comment 1.3, Activated Partial Thromboplast Time 34, Sodium Level 135, Potassium Level 4.5, Chloride Level 112H, Carbon Dioxide Level 15L, Anion Gap 8, Blood Urea Nitrogen 31H, Creatinine 2.12H, Estimat Glomerular Filtration Rate 31, BUN/Creatinine Ratio 15, Glucose Level 152H, Calcium Level 5.6*L, Corrected Calcium 7.4L, Phosphorus Level 4.0, Magnesium Level 1.6, Total Bilirubin 1.1H, Aspartate Amino Transf (AST/SGOT) 54H, Alanine Aminotransferase (ALT/SGPT) 24, Alkaline Phosphatase 29L, Total Protein 3.4L, Albumin 1.8L, Fibrinogen 436, D-Dimer 2.40H 12/14/19 05:05: Lactic Acid Level 2.11*H 12/14/19 07:45: Lactic Acid Level 2.58*H 12/14/19 09:25: Lactic Acid Level 2.61*H Microbiology 12/12/19 Gram Stain - Final, Resulted 12/12/19 Sputum Culture - Preliminary, Resulted Culture In Progress 12/10/19 Gram Stain - Final, Complete 12/10/19 Body Fluid Culture - Final, Complete Escherichia coli Klebsiella oxytoca Assessment/Plan Assessment/Plan Assess & Plan/Chief Complaint s/p lap right hemicolectomy with intraperitoneal hemorrhage x2 and s/p expl lap. patient remains critical. patients mother in full understanding of situation. expressed no heroic measures and in no improvement in next several days may make CC only. will continue current critical management for now. Clinical Quality Measures DVT/VTE Risk/Contraindication: Risk Factor Score Per Nursin RFS Level Per Nursing on Admit: 4+=Very High KADIE CLAY MD Dec 14, 2019 11:12
[2019-12-14 11:55] LABS: ABG BASE EXCESS -6.9 MMOL/L (-2.5-2.5); ABG OXYGEN SATURATION 89 % (94-100); ABG PCO2 43 MMHG (35-45); ABG PO2 56 MMHG (79-93); ABG TCO2 20.4 MMOL/L (21.0-31.0)
[2019-12-14 11:56] LABS: ALLENS TEST YES-POS; INSPIRED O2 40%; PATIENT TEMP 36.1; VENTILATOR YES
--- NOTE | 2019-12-14 11:56 | Progress Note - Hospitalist ---
Subjective HPI/CC On Admission Date Seen by Provider: Dec 14, 2019 Time Seen by Provider: 08:40 Pt is a 69yoCM with a PMH of HTN and COPD who was admitted for hemicolectomy due to colon cancer. He underwent surgery yesterday and I am consulted for medical management. He is hard of hearing but what he was able to answer he states he's hungry but having pain. He is using his [employer] and states it help. Otherwise he has not complaints. Subjective/Events-last exam he remains intubated and sedated. Focused Exam Lactate Level 12/14/19 05:05: Lactic Acid Level 2.11*H 12/14/19 07:45: Lactic Acid Level 2.58*H 12/14/19 09:25: Lactic Acid Level 2.61*H Lactic Acid Level Laboratory Tests Test 12/14/19 09:25 Lactic Acid Level 2.61 MMOL/L (0.50-2.00) *H Objective Exam Vital Signs Vital Signs Date Time Temp Pulse Resp B/P (MAP) Pulse Ox O2 Delivery O2 Flow Rate FiO2 12/14/19 11:34 Mechanical Ventilator 40 12/14/19 11:20 36.4 12/14/19 11:03 69 99/49 12/14/19 11:00 27 100 40.00 Capillary Refill : Less Than 3 SecondsGreater Than 3 Seconds General Appearance: No Apparent Distress, Other (intubated and sedated) Respiratory: Lungs Clear, Other (intubated and mechanically ventilated) Cardiovascular: Regular Rate, Rhythm, No Edema, No Murmur Gastrointestinal: Abnormal Bowel Sounds (hypoactive), Other (midline abdominal incision) Extremity: Normal Inspection, Non Tender, No Pedal Edema Neurologic/Psychiatric: Other (sedated) Skin: Warm/Dry, Pallor Results/Procedures Lab Laboratory Tests 12/13/19 11:58 12/13/19 13:13 12/13/19 17:00 12/14/19 01:00 12/14/19 03:02 Patient resulted labs reviewed. Imaging: Reviewed Imaging Report Assessment/Plan Assessment and Plan Assess & Plan/Chief Complaint Hemorrhagic shock Acute blood loss anemia Postoperative anemia Status post hemicolectomy Septic shock Secondary bacterial peritonitis status post 10+ units PRBC/FFP/Platelets hemoglobin stable continue IV fluids continue pressors remains intubated and sedated following surgery continue Zosyn eICU and pulmonology consulted exploratory laparotomy revealed bleeding mesenteric vessel and spleen, bleeding vessel cauterized and spleen removed Critical Care Critically Ill Patient Diagnosis/Problems Diagnosis/Problems (1) Postoperative hemorrhagic shock Status: Acute (2) Acute blood loss anemia Status: Acute (3) Status post right hemicolectomy Status: Acute Clinical Quality Measures DVT/VTE Risk/Contraindication: Risk Factor Score Per Nursin RFS Level Per Nursing on Admit: 4+=Very High MARLEE WINKLER MD Dec 14, 2019 11:56
[2019-12-14 11:57] LABS: ABG PH 7.27 (7.37-7.43)
[2019-12-14] MEDS: VASOPRESSIN INJECTION 20 UNIT in NS (IVPB) 100 ML IV SCH ×3 (12:52→21:11)
[2019-12-14 13:08] LABS: BASOPHILS # (AUTO) 0.1 10^3/uL (0.0-0.1); BASOPHILS % (AUTO) 0 % (0-10); EOSINOPHILS % (AUTO) 0 % (0-10); HEMATOCRIT 23 % (40-54); LYMPHOCYTES # (AUTO) 1.4 X 10^3 (1.0-4.0); LYMPHOCYTES % (AUTO) 5 % (12-44); MEAN CORPUSCULAR HEMOGLOBIN 30 PG (25-34); MEAN CORPUSCULAR HGB CONC 35 G/DL (32-36); MEAN CORPUSCULAR VOLUME 86 FL (80-99); MEAN PLATELET VOLUME 10.8 FL (7.4-10.4); MONOCYTES # (AUTO) 1.9 X 10^3 (0.0-1.0); MONOCYTES % (AUTO) 7 % (0-12); NEUTROPHILS # (AUTO) 24.1 X 10^3 (1.8-7.8); NEUTROPHILS % (AUTO) 88 % (42-75); PLATELET COUNT 148 10^3/uL (130-400); WHITE BLOOD COUNT 27.4 10^3/uL (4.3-11.0)
[2019-12-14 13:21] LABS: INR 1.6 (0.8-1.4); PROTHROMBIN TIME PATIENT 19.2 SEC (12.2-14.7)
[2019-12-14 13:22] LABS: BILIRUBIN,TOTAL 1.1 MG/DL (0.1-1.0); CREATININE SERUM 2.19 MG/DL (0.60-1.30); MAGNESIUM 1.8 MG/DL (1.6-2.4); PHOSPHORUS 4.7 MG/DL (2.3-4.7); POTASSIUM 4.4 MMOL/L (3.6-5.0); TOTAL PROTEIN 3.6 GM/DL (6.4-8.2)
[2019-12-14 13:37] LABS: BAND NEUTROPHILS 60 %; LYMPHOCYTES % (MANUAL) 6 %; MONOCYTES % (MANUAL) 5 %; NEUTROPHILS % (MANUAL) 25 %
[2019-12-14 13:38] LABS: ANISOCYTOSIS MODERATE; BASOPHILS % (MANUAL) 0 %; CALCIUM 5.6 MG/DL (8.5-10.1); EOSINOPHILS % (MANUAL) 0 %; METAMYELOCYTES % 2 %; MYELOCYTES % 2 %; POIKILOCYTOSIS SLIGHT; TOXIC GRANULATION/VACUOLAZATIO 2+
[2019-12-14 13:39] LABS: BURR CELLS MODERATE
--- NOTE | 2019-12-14 14:40 | NUR ---
RECENT LAB RESULTS SENT TO BOTH DR TORRES AND DR CLAY. Addendum: 12/14/19 at 1441 by MEJIA BURGER RN NO NEW ORDERS RECEIVED.
--- NOTE | 2019-12-14 15:15 | NUR ---
NEW ORDERS RECEIVED FROM DR TORRES TO DC Q2HR LACTIC ACIDS AND RECHECK LACTIC IN AM.
[2019-12-14] MEDS ORDERED: LACTATED RINGERS 1,000 ML IV ONE (15:30)
[2019-12-14] MEDS ORDERED: CALCIUM GLUCONATE IV NR ×2 (16:00)
[2019-12-14] MEDS ORDERED: SODIUM CHLORIDE IV NR ×2 (16:00)
[2019-12-14 18:47] LABS: HEMATOCRIT 21 % (40-54); HEMOGLOBIN 7.4 G/DL (13.3-17.7); LYMPHOCYTES % (AUTO) 6 % (12-44); MEAN CORPUSCULAR HEMOGLOBIN 30 PG (25-34); MEAN CORPUSCULAR HGB CONC 35 G/DL (32-36); MEAN CORPUSCULAR VOLUME 86 FL (80-99); MONOCYTES % (AUTO) 6 % (0-12); NEUTROPHILS % (AUTO) 88 % (42-75); PLATELET COUNT 147 10^3/uL (130-400); RED CELL DISTRIBUTION WIDTH 17.6 % (10.0-14.5)
[2019-12-14 18:48] LABS: BASOPHILS # (AUTO) 0.1 10^3/uL (0.0-0.1); BASOPHILS % (AUTO) 0 % (0-10); EOSINOPHILS # (AUTO) 0.1 10^3/uL (0.0-0.3); EOSINOPHILS % (AUTO) 0 % (0-10); LYMPHOCYTES # (AUTO) 1.5 X 10^3 (1.0-4.0); MONOCYTES # (AUTO) 1.5 X 10^3 (0.0-1.0); NEUTROPHILS # (AUTO) 22.8 X 10^3 (1.8-7.8)
[2019-12-14 19:08] LABS: WHITE BLOOD COUNT 24.6 10^3/uL (4.3-11.0)
[2019-12-14 19:12] LABS: ALBUMIN 2.3 GM/DL (3.2-4.5); BILIRUBIN,TOTAL 1.5 MG/DL (0.1-1.0); CALCIUM 6.4 MG/DL (8.5-10.1); CREATININE SERUM 2.39 MG/DL (0.60-1.30); POTASSIUM 4.6 MMOL/L (3.6-5.0); TOTAL PROTEIN 3.8 GM/DL (6.4-8.2)
--- NOTE | 2019-12-14 19:19 | NUR ---
LAB RESULTS GIVEN TO DR CLAY.
[2019-12-14 20:05] LABS: ABG BASE EXCESS -5.7 MMOL/L (-2.5-2.5); ABG OXYGEN SATURATION 96 % (94-100); ABG PCO2 39 MMHG (35-45); ABG PO2 82 MMHG (79-93); ABG TCO2 20.5 MMOL/L (21.0-31.0)
[2019-12-14 20:06] LABS: ALLENS TEST ART LINE
[2019-12-14 20:07] LABS: PATIENT TEMP 37; VENTILATOR YES
[2019-12-14 20:08] LABS: ABG PH 7.32 (7.37-7.43)
[2019-12-14] MEDS ORDERED: NS IV 500 ML 500 ML ONE (20:38)
[2019-12-14] MEDS ORDERED: NS IV 500 ML 500 ML IV SCH ×2 (20:45→21:00)
[2019-12-15] VITALS (36 sets, daily range): BP systolic 90–137; BP diastolic 51–89
[2019-12-15] MEDS: PROPOFOL DRIP (ICU) 100 ML IV SCH ×4 (02:02→22:21)
[2019-12-15] MEDS: D5 LR IV SOLUTION 1,000 ML IV SCH ×2 (02:02→21:06)
[2019-12-15] MEDS: EPINEPHrine 1 MG INJECTION 2 MG in NS (IVPB) 248 ML IV SCH ×7 (02:03→23:43)
[2019-12-15] MEDS: NOREPINEPHRINE 8 MG in NS (IVPB) 250 ML IV SCH ×4 (02:09→20:59)
[2019-12-15] MEDS: SODIUM BICARBONATE 8.4% VIAL 100 MEQ in 1/2 NS IV SOLUTION 1,000 ML IV SCH ×3 (03:17→15:58)
[2019-12-15] MEDS: AMIODARONE INJECTION 450 MG in D5W IV SOLUTION (EXCEL) 250 ML IV SCH (04:07)
[2019-12-15 04:26] LABS: ABG BASE EXCESS -4.6 MMOL/L (-2.5-2.5); ABG OXYGEN SATURATION 85 % (94-100); ABG PCO2 35 MMHG (35-45); ABG PH 7.37 (7.37-7.43); ABG PO2 52 MMHG (79-93)
[2019-12-15 04:29] LABS: ALLENS TEST ART LINE; INSPIRED O2 25%; VENTILATOR YES
[2019-12-15 04:31] LABS: BASOPHILS # (AUTO) 0.1 10^3/uL (0.0-0.1); BASOPHILS % (AUTO) 0 % (0-10); EOSINOPHILS # (AUTO) 0.1 10^3/uL (0.0-0.3); EOSINOPHILS % (AUTO) 0 % (0-10); HEMATOCRIT 24 % (40-54); HEMOGLOBIN 8.6 G/DL (13.3-17.7); LYMPHOCYTES # (AUTO) 1.5 X 10^3 (1.0-4.0); LYMPHOCYTES % (AUTO) 6 % (12-44); MEAN CORPUSCULAR HEMOGLOBIN 30 PG (25-34); MEAN CORPUSCULAR HGB CONC 36 G/DL (32-36); MEAN CORPUSCULAR VOLUME 85 FL (80-99); MEAN PLATELET VOLUME 11.1 FL (7.4-10.4); MONOCYTES # (AUTO) 1.4 X 10^3 (0.0-1.0); MONOCYTES % (AUTO) 5 % (0-12); NEUTROPHILS % (AUTO) 88 % (42-75); PLATELET COUNT 135 10^3/uL (130-400); RED CELL DISTRIBUTION WIDTH 17.3 % (10.0-14.5)
[2019-12-15 04:51] LABS: ALBUMIN 2.5 GM/DL (3.2-4.5); BILIRUBIN,TOTAL 1.9 MG/DL (0.1-1.0); CALCIUM 6.4 MG/DL (8.5-10.1); CREATININE SERUM 2.41 MG/DL (0.60-1.30); MAGNESIUM 2.4 MG/DL (1.6-2.4); PHOSPHORUS 5.4 MG/DL (2.3-4.7); POTASSIUM 4.4 MMOL/L (3.6-5.0); TOTAL PROTEIN 4.5 GM/DL (6.4-8.2)
[2019-12-15] MEDS: fentaNYL INJECTION 1,250 MCG in NS (IVPB) 250 ML IV SCH ×2 (04:56→16:55)
[2019-12-15] MEDS: inSUlin ASPART (NovoLOG) 1 UNIT/0.01 ML (CHARGE PER UNIT) SQ SCH ×5 (04:58→20:54)
[2019-12-15] MEDS: POTASSIUM CL 10MEQ/50ML IVPB 50 ML IV SCH (04:59)
[2019-12-15] MEDS: KCL 20 MEQ TAB (K-DUR) PO SCH (05:00)
[2019-12-15] MEDS: MAGNESIUM 1 GM/100 ML IVPB 100 ML IV SCH (05:00)
--- NOTE | 2019-12-15 05:17 | NUR ---
2029 - This RN called E-ICU to report Hgb of 7.4, decreasing from 8.0. Dr to put in orders, see order history. 2209 - Changes in EKG noted on monitor, 12-lead obtained, results faxed to E-ICU and notified. New orders received at this time, see eMAR. 9005 - 20mL of IV Fentanyl wasted with GREG Caro at this time.
[2019-12-15] MEDS: VASOPRESSIN INJECTION 20 UNIT in NS (IVPB) 100 ML IV SCH ×2 (05:33→13:52)
[2019-12-15] MEDS: HYDROCORTISONE 100 MG/2 ML (Solu-CORTEF) VIAL IV SCH ×3 (05:33→17:39)
[2019-12-15] MEDS: PIPERACILLIN/TAZO 4.5 GM/NS 100 ML IV SCH ×6 (05:33→23:43)
[2019-12-15] MEDS: ARFORMOTEROL 15 MCG/2 ML (BROVANA) INH SOLUTIION IH SCH ×2 (06:45→18:20)
[2019-12-15] MEDS: NON-FORMULARY MEDICATION 1 EA EA (Fluticasone/Umeclidin/Vilanter (Trelegy Ellipta 100-62.5 IH SCH (07:44)
--- NOTE | 2019-12-15 07:46 | Diagnostic Imaging Report ---
INDICATION: Postop patient with shortness of breath Frontal chest obtained at 0348 a.m. is compared to yesterday. ET tube tip overlies mid to upper trachea. NG tube tip is not well seen. PICC line is unchanged. The heart is normal in size. There is COPD change with mild bibasilar atelectasis. There is no pneumothorax or pleural fluid. IMPRESSION: Stable chest compared to yesterday. COPD changes with mild bibasilar atelectasis. Life support lines unchanged. Dictated by: Dictated on workstation # [id number]
[2019-12-15] MEDS: BROMOCRIPTINE 2.5 MG PO SCH ×2 (08:03→17:36)
--- NOTE | 2019-12-15 08:46 | NUR ---
JASON RT AT BEDSIDE DUE THIS RN'S REQUEST. THIS RN AND EJ, PCT REPOSITIONED PT, AT WHICH TIME PT DEOXYGENATED AND WAS NOT ABLE TO REGAIN ADEQUATE OXYGENATION. PT DEEP SUCTIONED FOLLOWING SALINE BULLETS, THICK MUCUS SECRETIONS EXPELLED. DR. WINKLER AT PT BEDSIDE GAVE VERBAL ORDERS TO INCREASE PEEP FROM 5 TO 10 AND TO SCHEDULE DUONEB TREATMENTS Q4H, ORDER PLACED BY THIS RN SEE ORDER HX. VENTILATOR CIRCUIT CHANGED TO HEATED CIRCUIT BY RT.
[2019-12-15] MEDS: SENNA W/DOCUSATE (SENOKOT S) TABLET PO SCH (09:01)
[2019-12-15] MEDS: PANTOPRAZOLE 40 MG (PROTONIX) VIAL IV SCH ×2 (09:01→21:56)
[2019-12-15] MEDS: ANIDULAFUNGIN INJECTION 100 MG in NS (IVPB) 100 ML IV SCH (09:05)
[2019-12-15] MEDS ORDERED: VANCOMYCIN INJECTION 0.1 MG in NS (IVPB) 250 ML IV SCH (09:15)
--- NOTE | 2019-12-15 09:28 | NUR ---
THIS RN CALLED TELE-ICU PER THE REQUEST OF DR. WINKLER. THIS RN ASKED IF THE PT COULD BE TAKEN OFF OF THE AMIODARONE GTT AND TRANSITIONED TO PO AMIODARONE VIA NG TUBE. NO NEW ORDERS OBTAINED AT THIS TIME.
[2019-12-15] MEDS: RT-ALBUTEROL/IPRATROPIUM 3 ML (DUONEB) VIAL INH SCH ×4 (09:39→20:55)
--- NOTE | 2019-12-15 09:45 | NUR ---
PTD Vanco - give 2gm loading dose now, then 750mg every 12 hours. Trough on 12/16 @ 0900
[2019-12-15] MEDS ORDERED: VANCOMYCIN 2000 MG/NS 500 ML IVPB IV NR ×2 (10:00)
[2019-12-15] MEDS ORDERED: AMIODARONE INJECTION 450 MG in D5W IV SOLUTION (EXCEL) 250 ML IV SCH (10:00)
--- NOTE | 2019-12-15 10:58 | Progress Note ---
Subjective Date Seen by a Provider: Dec 15, 2019 Time Seen by a Provider: 10:30 Subjective/Events-last exam patient remains critically ill. on vent/sedated and on vasopressors. poor prognosis. family in full understanding and will wait until next week to decide on comfort care measures. Focused Exam Lactate Level 12/14/19 12:45: Lactic Acid Level 2.55*H 12/14/19 14:45: Lactic Acid Level 2.58*H 12/15/19 04:16: Lactic Acid Level 3.01*H Objective Exam Vital Signs Date Time Temp Pulse Resp B/P (MAP) Pulse Ox O2 Delivery O2 Flow Rate FiO2 12/15/19 10:00 48 28 119/61 (80) 94 Mechanical Ventilator 60.00 12/15/19 09:40 56 30 92 60 12/15/19 09:30 Mechanical Ventilator 60.00 12/15/19 09:03 62 111/57 12/15/19 09:00 62 12 111/59 (76) 89 Mechanical Ventilator 30.00 12/15/19 08:50 56 122/60 12/15/19 08:43 55 130/66 12/15/19 08:39 Mechanical Ventilator 30.00 12/15/19 08:00 48 27 105/55 (72) 96 Mechanical Ventilator 25.00 12/15/19 08:00 35.9 12/15/19 07:49 Mechanical Ventilator 25 12/15/19 07:00 47 12/15/19 07:00 71 28 108/56 (73) 95 Mechanical Ventilator 25.00 12/15/19 06:45 48 28 95 25 12/15/19 06:00 49 28 109/55 (73) 95 Mechanical Ventilator 25.00 12/15/19 05:33 48 118/58 12/15/19 05:07 36.3 49 28 127/62 94 Mechanical Ventilator 25 12/15/19 05:00 48 27 101/53 (69) 95 Mechanical Ventilator 25.00 12/15/19 04:28 36.0 12/15/19 04:28 Mechanical Ventilator 25 12/15/19 04:00 49 28 115/58 (77) 93 Mechanical Ventilator 25.00 12/15/19 03:00 36.3 48 28 108/55 96 Mechanical Ventilator 25 12/15/19 03:00 49 27 109/55 (73) 96 Mechanical Ventilator 25.00 12/15/19 02:47 36.1 47 28 106/54 96 Mechanical Ventilator 25 12/15/19 02:32 36.3 47 28 109/54 95 Mechanical Ventilator 40 12/15/19 02:16 45 28 97 30 12/15/19 02:02 48 105/53 12/15/19 02:00 48 28 110/54 (72) 95 Mechanical Ventilator 25.00 12/15/19 01:00 48 12/15/19 01:00 48 27 107/54 (71) 97 Mechanical Ventilator 30.00 12/15/19 00:50 35.8 49 28 116/57 98 Mechanical Ventilator 30 12/15/19 00:33 36.0 47 28 90/51 98 Mechanical Ventilator 30 12/15/19 00:13 Mechanical Ventilator 40 12/15/19 00:06 35.7 12/15/19 00:00 46 27 106/53 (70) 98 Mechanical Ventilator 30.00 12/14/19 23:34 36.0 44 28 110/53 97 Mechanical Ventilator 30 12/14/19 23:00 47 28 98/49 (65) 97 Mechanical Ventilator 30.00 12/14/19 22:30 46 28 100 40 12/14/19 22:30 Mechanical Ventilator 30.00 12/14/19 22:00 49 28 116/53 (74) 97 Mechanical Ventilator 40.00 12/14/19 21:42 36.2 48 28 118/53 92 Mechanical Ventilator 40 12/14/19 21:26 35.9 49 28 113/52 92 Mechanical Ventilator 40 12/14/19 21:11 83 109/52 12/14/19 21:00 62 27 111/52 (71) 95 Mechanical Ventilator 40.00 12/14/19 20:12 48 28 93 40 12/14/19 20:00 50 27 104/52 (69) 93 Mechanical Ventilator 40.00 12/14/19 19:45 Mechanical Ventilator 40 12/14/19 19:32 37.0 50 28 99/50 (66) 93 Mechanical Ventilator 40.00 12/14/19 19:00 53 27 100/52 (68) 93 Mechanical Ventilator 40.00 12/14/19 19:00 52 12/14/19 18:34 55 88/50 12/14/19 18:00 53 27 91/49 (63) 83 Mechanical Ventilator 40.00 12/14/19 17:00 54 27 98/50 (66) 100 Mechanical Ventilator 40.00 12/14/19 16:11 60 110/53 12/14/19 16:00 67 28 93/51 (65) 88 Mechanical Ventilator 40.00 12/14/19 15:29 Mechanical Ventilator 40 12/14/19 15:15 36.0 12/14/19 15:00 60 27 106/50 (68) 92 Mechanical Ventilator 40.00 12/14/19 14:45 61 28 98 40 12/14/19 14:00 63 27 102/51 (68) 90 Mechanical Ventilator 40.00 12/14/19 13:20 66 12/14/19 13:00 66 27 99/48 (65) 98 Mechanical Ventilator 40.00 12/14/19 12:52 69 96/48 12/14/19 12:00 67 27 101/49 (66) 100 Mechanical Ventilator 40.00 12/14/19 11:34 Mechanical Ventilator 40 12/14/19 11:20 36.4 12/14/19 11:03 69 99/49 12/14/19 11:00 67 27 103/50 (67) 100 Mechanical Ventilator 40.00 I & O 12/15/19 07:00 Intake Total 9156 ml Output Total 2505 ml Balance 6651 ml Capillary Refill : Less Than 3 SecondsGreater Than 3 Seconds General Appearance: No Apparent Distress HEENT: PERRL/EOMI Neck: Full Range of Motion Respiratory: Decreased Breath Sounds, Rhonci, Wheezing Cardiovascular: Regular Rate, Rhythm Gastrointestinal: distended, tenderness Extremity: Slow Capillary Refill Neurologic/Psychiatric: Other (vent and sedated) Skin: Cool, Cyanosis Lymphatic: No Adenopathy Results Lab Laboratory Tests 12/14/19 11:21: Glucometer 100 12/14/19 11:45: Blood Gas Puncture Site ART LINE, Blood Gas Patient Temperature 36.1, Arterial Blood pH 7.27*L, Arterial Blood Partial Pressure CO2 43, Arterial Blood Partial Pressure O2 56L, Arterial Blood HCO3 19L, Arterial Blood Total CO2 20.4L, Arterial Blood Oxygen Saturation 89L, Arterial Blood Base Excess -6.9L, Luke Test YES-POS, Blood Gas Ventilator Setting YES, Blood Gas Inspired Oxygen 40% 12/14/19 12:45: White Blood Count 27.4H, Red Blood Count 2.69L, Hemoglobin 8.0L, Hematocrit 23L, Mean Corpuscular Volume 86, Mean Corpuscular Hemoglobin 30, Mean Corpuscular Hemoglobin Concent 35, Red Cell Distribution Width 18.0H, Platelet Count 148, Mean Platelet Volume 10.8H, Neutrophils (%) (Auto) 88H, Lymphocytes (%) (Auto) 5L, Monocytes (%) (Auto) 7, Eosinophils (%) (Auto) 0, Basophils (%) (Auto) 0, Neutrophils # (Auto) 24.1H, Lymphocytes # (Auto) 1.4, Monocytes # (Auto) 1.9H, Eosinophils # (Auto) 0.0, Basophils # (Auto) 0.1, Neutrophils % (Manual) 25, Lymphocytes % (Manual) 6, Monocytes % (Manual) 5, Eosinophils % (Manual) 0, Basophils % (Manual) 0, Metamyelocytes % 2, Myelocytes % 2, Band Neutrophils 60, Toxic Granulation 2+, Poikilocytosis SLIGHT, Anisocytosis MODERATE, Ofelia Cells MODERATE, Prothrombin Time 19.2H, INR Comment 1.6H, Activated Partial Thromboplast Time 36H, Sodium Level 133L, Potassium Level 4.4, Chloride Level 109H, Carbon Dioxide Level 18L, Anion Gap 6, Blood Urea Nitrogen 33H, Creatinine 2.19H, Estimat Glomerular Filtration Rate 30, BUN/Creatinine Ratio 15, Glucose Level 140H, Lactic Acid Level 2.55*H, Calcium Level 5.6*L, Corrected Calcium 7.2L, Phosphorus Level 4.7, Magnesium Level 1.8, Total Bilirubin 1.1H, Aspartate Amino Transf (AST/SGOT) 76H, Alanine Aminotransferase (ALT/SGPT) 35, Alkaline Phosphatase 27L, Total Protein 3.6L, Albumin 2.0L 12/14/19 14:45: Lactic Acid Level 2.58*H 12/14/19 15:26: Glucometer 151H 12/14/19 18:30: White Blood Count 24.6H, Red Blood Count 2.47L, Hemoglobin 7.4L, Hematocrit 21L, Mean Corpuscular Volume 86, Mean Corpuscular Hemoglobin 30, Mean Corpuscular Hemoglobin Concent 35, Red Cell Distribution Width 17.6H, Platelet Count 147, Mean Platelet Volume 11.0H, Neutrophils (%) (Auto) 88H, Lymphocytes (%) (Auto) 6L, Monocytes (%) (Auto) 6, Eosinophils (%) (Auto) 0, Basophils (%) (Auto) 0, Neutrophils # (Auto) 22.8H, Lymphocytes # (Auto) 1.5, Monocytes # (Auto) 1.5H, Eosinophils # (Auto) 0.1, Basophils # (Auto) 0.1, Sodium Level 135, Potassium Le haily 4.6, Chloride Level 108H, Carbon Dioxide Level 18L, Anion Gap 9, Blood Urea Nitrogen 37H, Creatinine 2.39H, Estimat Glomerular Filtration Rate 27, BUN/Creatinine Ratio 15, Glucose Level 139H, Calcium Level 6.4L, Corrected Calcium 7.8L, Total Bilirubin 1.5H, Aspartate Amino Transf (AST/SGOT) 383H, Alanine Aminotransferase (ALT/SGPT) 171H, Alkaline Phosphatase 28L, Total Protein 3.8L, Albumin 2.3L 12/14/19 20:00: Blood Gas Puncture Site LALINE, Blood Gas Patient Temperature 37, Arterial Blood pH 7.32*L, Arterial Blood Partial Pressure CO2 39, Arterial Blood Partial Pressure O2 82, Arterial Blood HCO3 19L, Arterial Blood Total CO2 20.5L, Arterial Blood Oxygen Saturation 96, Arterial Blood Base Excess -5.7L, Luke Test ART LINE, Blood Gas Ventilator Setting YES, Blood Gas Inspired Oxygen 48% 12/15/19 04:16: White Blood Count 25.0H, Red Blood Count 2.84L, Hemoglobin 8.6L, Hematocrit 24L, Mean Corpuscular Volume 85, Mean Corpuscular Hemoglobin 30, Mean Corpuscular Hemoglobin Concent 36, Red Cell Distribution Width 17.3H, Platelet Count 135, Mean Platelet Volume 11.1H, Neutrophils (%) (Auto) 88H, Lymphocytes (%) (Auto) 6L, Monocytes (%) (Auto) 5, Eosinophils (%) (Auto) 0, Basophils (%) (Auto) 0, Neutrophils # (Auto) 22.0H, Lymphocytes # (Auto) 1.5, Monocytes # (Auto) 1.4H, Eosinophils # (Auto) 0.1, Basophils # (Auto) 0.1, Sodium Level 137, Potassium Level 4.4, Chloride Level 107, Carbon Dioxide Level 17L, Anion Gap 13, Blood Ure a Nitrogen 41H, Creatinine 2.41H, Estimat Glomerular Filtration Rate 27, BUN/Creatinine Ratio 17, Glucose Level 145H, Calcium Level 6.4L, Corrected Calcium 7.6L, Total Bilirubin 1.9H, Aspartate Amino Transf (AST/SGOT) 1436#H, Alanine Aminotransferase (ALT/SGPT) 420H, Alkaline Phosphatase 47, Total Protein 4.5L, Albumin 2.5L, Lactic Acid Level 3.01*H, Phosphorus Level 5.4H, Magnesium Level 2.4, B-Type Natriuretic Peptide 498.4H, Triglycerides Level 302H 12/15/19 04:20: Blood Gas Puncture Site LEFT ART LINE, Blood Gas Patient Temperature 36.0, Arterial Blood pH 7.37, Arterial Blood Partial Pressure CO2 35, Arterial Blood Partial Pressure O2 52L, Arterial Blood HCO3 20L, Arterial Blood Total CO2 21.0, Arterial Blood Oxygen Saturation 85L, Arterial Blood Base Excess -4.6L, Luke Test ART LINE, Blood Gas Ventilator Setting YES, Blood Gas Inspired Oxygen 25% Microbiology 12/14/19 Gram Stain - Final, Resulted 12/14/19 Body Fluid Culture, Resulted Pending 12/13/19 Blood Culture - Preliminary, Resulted No growth 12/12/19 Gram Stain - Final, Complete 12/12/19 Sputum Culture - Final, Complete Usual upper respiratory chris Assessment/Plan Assessment/Plan Assess & Plan/Chief Complaint s/p lap right hemicolectomy with intraperitoneal hemorrhage x2 and s/p expl lap. patient remains critical. patients mother in full understanding of situation. expressed no heroic measures and in no improvement in next several days may make CC only. will continue current critical management for now. Clinical Quality Measures DVT/VTE Risk/Contraindication: Risk Factor Score Per Nursin RFS Level Per Nursing on Admit: 4+=Very High KADIE CLAY MD Dec 15, 2019 10:58
--- NOTE | 2019-12-15 11:45 | NUR ---
DRESSINGS TO ABDOMINAL MIDLINE INCISION AND FRANK DRAINS X2 CHANGED.
--- NOTE | 2019-12-15 13:44 | Progress Note - Hospitalist ---
Subjective HPI/CC On Admission Date Seen by Provider: Dec 15, 2019 Time Seen by Provider: 09:00 Pt is a 69yoCM with a PMH of HTN and COPD who was admitted for hemicolectomy due to colon cancer. He underwent surgery yesterday and I am consulted for medical management. He is hard of hearing but what he was able to answer he states he's hungry but having pain. 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 Otherwise he has not complaints. Subjective/Events-last exam he remains intubated and sedated. Focused Exam Lactate Level 12/14/19 12:45: Lactic Acid Level 2.55*H 12/14/19 14:45: Lactic Acid Level 2.58*H 12/15/19 04:16: Lactic Acid Level 3.01*H Objective Exam Vital Signs Vital Signs Date Time Temp Pulse Resp B/P (MAP) Pulse Ox O2 Delivery O2 Flow Rate FiO2 12/15/19 12:57 46 12/15/19 12:00 27 108/58 (75) 97 Mechanical Ventilator 60.00 12/15/19 11:21 60 12/15/19 11:17 36.3 Capillary Refill : Less Than 3 SecondsGreater Than 3 Seconds General Appearance: No Apparent Distress, WD/WN Respiratory: Other (coarse breath sounds throughout, intubated and mechanically ventilated) Cardiovascular: Regular Rate, Rhythm, No Murmur Gastrointestinal: Abnormal Bowel Sounds (absent bowel sounds), Distended, Other (midline abdominal incision) Extremity: Normal Inspection, Pedal Edema Neurologic/Psychiatric: Other (sedated) Skin: Normal Color, Warm/Dry Results/Procedures Lab Laboratory Tests 12/14/19 18:30 12/15/19 04:16 Patient resulted labs reviewed. Imaging: Reviewed Imaging Report Assessment/Plan Assessment and Plan Assess & Plan/Chief Complaint Acute blood loss anemia Postoperative anemia Status post hemicolectomy Septic shock Secondary bacterial peritonitis Acute respiratory failure with hypoxia Endotracheally intubated Acute kidney injury Likely ATN Shock liver Lactic acidosis Atrial fibrillation with RVR Poor prognosis exploratory laparotomy revealed bleeding mesenteric vessel and spleen, bleeding vessel cauterized and spleen removed hemoglobin stable continue IV fluids, decreased rate continue pressors as needed A. fib with RVR resolved, likely transition to oral amiodarone today remains intubated and sedated continue Zosyn and Eraxis add vancomycin eICU and pulmonology consulted Hemorrhagic shock, resolved Critical Care Critically Ill Patient Diagnosis/Problems Diagnosis/Problems (1) Postoperative hemorrhagic shock Status: Acute (2) Acute blood loss anemia Status: Acute (3) Status post right hemicolectomy Status: Acute (4) FLACO (acute kidney injury) Status: Acute (5) ATN (acute tubular necrosis) Status: Acute (6) Shock liver Status: Acute (7) Lactic acidosis Status: Acute (8) Poor prognosis Status: Acute (9) Endotracheally intubated Status: Acute (10) Acute respiratory failure with hypoxia Status: Acute Clinical Quality Measures DVT/VTE Risk/Contraindication: Risk Factor Score Per Nursin RFS Level Per Nursing on Admit: 4+=Very High MARLEE WINKLER MD Dec 15, 2019 13:44
[2019-12-15 16:43] LABS: HEMOGLOBIN 8.6 G/DL (13.3-17.7)
[2019-12-15] MEDS: VANCOMYCIN 750 MG/NS 250 ML IVPB IV SCH ×2 (21:56)
[2019-12-16] VITALS (31 sets, daily range): BP systolic 93–141; BP diastolic 42–79
[2019-12-16] MEDS: HYDROCORTISONE 100 MG/2 ML (Solu-CORTEF) VIAL IV SCH ×5 (01:04→22:56)
[2019-12-16] MEDS: inSUlin ASPART (NovoLOG) 1 UNIT/0.01 ML (CHARGE PER UNIT) SQ SCH ×6 (01:04→23:00)
[2019-12-16] MEDS: RT-ALBUTEROL/IPRATROPIUM 3 ML (DUONEB) VIAL INH SCH ×6 (01:15→21:59)
[2019-12-16] MEDS: EPINEPHrine 1 MG INJECTION 2 MG in NS (IVPB) 248 ML IV SCH ×7 (03:12→23:52)
[2019-12-16] MEDS: fentaNYL INJECTION 1,250 MCG in NS (IVPB) 250 ML IV SCH ×3 (04:08→21:45)
[2019-12-16 04:10] LABS: BASOPHILS # (AUTO) 0.1 10^3/uL (0.0-0.1); BASOPHILS % (AUTO) 1 % (0-10); EOSINOPHILS % (AUTO) 0 % (0-10); HEMATOCRIT 24 % (40-54); HEMOGLOBIN 8.2 G/DL (13.3-17.7); LYMPHOCYTES # (AUTO) 2.3 X 10^3 (1.0-4.0); LYMPHOCYTES % (AUTO) 10 % (12-44); MEAN CORPUSCULAR HEMOGLOBIN 30 PG (25-34); MEAN CORPUSCULAR HGB CONC 34 G/DL (32-36); MEAN CORPUSCULAR VOLUME 87 FL (80-99); MEAN PLATELET VOLUME 11.1 FL (7.4-10.4); MONOCYTES # (AUTO) 1.2 X 10^3 (0.0-1.0); MONOCYTES % (AUTO) 5 % (0-12); NEUTROPHILS # (AUTO) 19.1 X 10^3 (1.8-7.8); NEUTROPHILS % (AUTO) 84 % (42-75); PLATELET COUNT 146 10^3/uL (130-400); RED CELL DISTRIBUTION WIDTH 17.7 % (10.0-14.5); WHITE BLOOD COUNT 22.7 10^3/uL (4.3-11.0)
[2019-12-16 04:12] LABS: ABG BASE EXCESS -1.4 MMOL/L (-2.5-2.5); ABG OXYGEN SATURATION 92 % (94-100); ABG PCO2 39 MMHG (35-45); ABG PH 7.39 (7.37-7.43); ABG PO2 69 MMHG (79-93); ABG TCO2 24.2 MMOL/L (21.0-31.0)
[2019-12-16 04:26] LABS: ALLENS TEST ART LINE
[2019-12-16 04:27] LABS: INSPIRED O2 40%; PATIENT TEMP 36.6; VENTILATOR YES
[2019-12-16 04:38] LABS: ALBUMIN 2.3 GM/DL (3.2-4.5); CALCIUM 6.4 MG/DL (8.5-10.1); CREATININE SERUM 2.37 MG/DL (0.60-1.30); MAGNESIUM 2.4 MG/DL (1.6-2.4); PHOSPHORUS 4.6 MG/DL (2.3-4.7); POTASSIUM 3.8 MMOL/L (3.6-5.0); TOTAL PROTEIN 4.6 GM/DL (6.4-8.2)
[2019-12-16] MEDS: VASOPRESSIN INJECTION 20 UNIT in NS (IVPB) 100 ML IV SCH ×3 (04:40→22:07)
[2019-12-16] MEDS: MAGNESIUM 1 GM/100 ML IVPB 100 ML IV SCH (04:42)
[2019-12-16] MEDS: POTASSIUM CL 10MEQ/50ML IVPB 50 ML IV SCH (04:42)
[2019-12-16] MEDS: KCL 20 MEQ TAB (K-DUR) PO SCH (04:42)
[2019-12-16] MEDS: PROPOFOL DRIP (ICU) 100 ML IV SCH ×5 (05:11→22:55)
--- NOTE | 2019-12-16 05:37 | Diagnostic Imaging Report ---
EXAMINATION: Portable semierect AP chest at 5:03 AM INDICATION: Postop The appearance of the chest has worsened since the prior exam of 12/15/2019 as both hemidiaphragms are now obscured by mild atelectasis/infiltrate and fluid. The upper lungs remain clear. The heart is stable. The mediastinum is not widened. The osseous structures are intact. The supportive tubes and lines seen on the prior study seem unchanged in position. IMPRESSION: The appearance of the chest has worsened since the prior study as mild bibasilar pneumonia/atelectasis and fluid has developed. A follow-up exam would be recommended for continued evaluation. Dictated by: Dictated on workstation # [id number]
[2019-12-16] MEDS: PIPERACILLIN/TAZO 4.5 GM/NS 100 ML IV SCH ×6 (06:42→21:01)
[2019-12-16] MEDS: PANTOPRAZOLE 40 MG (PROTONIX) VIAL IV SCH ×2 (07:34→20:55)
[2019-12-16] MEDS: SENNA W/DOCUSATE (SENOKOT S) TABLET PO SCH (07:34)
[2019-12-16] MEDS: BROMOCRIPTINE 2.5 MG PO SCH ×2 (07:34→18:20)
--- NOTE | 2019-12-16 08:19 | NUR ---
RECEIVED CALL FROM MARGIE BINGHAM AT THIS TIME. KAYA BINGHAMIP D/C'S ET ZONIA BINGHAMIP D/C'D PER ORDERS.
[2019-12-16] MEDS ORDERED: BUMETANIDE 1 MG/4 ML (BUMEX) VIAL IV ONE (08:30)
[2019-12-16] MEDS ORDERED: ALBUMIN 25% 25 GM/100 ML 50 ML IV ONE (08:30)
[2019-12-16] MEDS: ANIDULAFUNGIN INJECTION 100 MG in NS (IVPB) 100 ML IV SCH (08:41)
[2019-12-16] MEDS: NON-FORMULARY MEDICATION 1 EA EA (Fluticasone/Umeclidin/Vilanter (Trelegy Ellipta 100-62.5 IH SCH (09:39)
--- NOTE | 2019-12-16 10:09 | Progress Note ---
Subjective Date Seen by a Provider: Dec 16, 2019 Time Seen by a Provider: 10:00 Subjective/Events-last exam on vent/sedated. remains critically improved however labs/abg/vent settings improving. will continue current critical care for now and continue to communicate with family. Focused Exam Lactate Level 12/14/19 12:45: Lactic Acid Level 2.55*H 12/14/19 14:45: Lactic Acid Level 2.58*H 12/15/19 04:16: Lactic Acid Level 3.01*H Objective Exam Vital Signs Date Time Temp Pulse Resp B/P (MAP) Pulse Ox O2 Delivery O2 Flow Rate FiO2 12/16/19 09:00 67 27 115/56 (75) 96 Mechanical Ventilator 35.00 12/16/19 08:00 97 Mechanical Ventilator 35 12/16/19 08:00 52 28 101/57 (72) 97 Mechanical Ventilator 35.00 12/16/19 07:33 36.3 12/16/19 07:00 54 12/16/19 07:00 58 27 107/59 (75) 96 Mechanical Ventilator 35.00 12/16/19 06:48 51 28 97 35 12/16/19 06:00 55 27 103/56 (72) 97 Mechanical Ventilator 35.00 12/16/19 05:11 66 107/42 12/16/19 05:00 74 27 108/67 (81) 98 Mechanical Ventilator 35.00 12/16/19 04:00 66 22 107/42 (63) 92 Mechanical Ventilator 35.00 12/16/19 04:00 Mechanical Ventilator 45 12/16/19 03:00 51 27 107/56 (73) 96 Mechanical Ventilator 35.00 12/16/19 02:00 50 28 113/59 (77) 96 Mechanical Ventilator 40.00 12/16/19 01:15 54 28 97 40 12/16/19 01:00 56 27 112/58 (76) 96 Mechanical Ventilator 40.00 12/16/19 01:00 57 12/16/19 00:00 Mechanical Ventilator 45 12/16/19 00:00 49 28 114/57 (76) 92 Mechanical Ventilator 40.00 12/15/19 23:00 49 27 116/57 (76) 92 Mechanical Ventilator 40.00 12/15/19 22:21 51 113/59 12/15/19 22:00 48 28 120/57 (78) 91 Mechanical Ventilator 40.00 12/15/19 21:24 Mechanical Ventilator 40.00 12/15/19 21:00 51 28 113/59 (77) 100 Mechanical Ventilator 45.00 12/15/19 20:55 43 28 95 45 12/15/19 20:00 45 27 120/59 (79) 94 Mechanical Ventilator 45.00 12/15/19 20:00 Mechanical Ventilator 45 12/15/19 19:28 36.6 44 28 125/61 (82) 95 Mechanical Ventilator 45.00 12/15/19 19:00 48 28 124/61 (82) 95 Mechanical Ventilator 45.00 12/15/19 19:00 45 12/15/19 18:28 Mechanical Ventilator 45.00 12/15/19 18:20 46 28 96 50 12/15/19 18:00 46 28 114/58 (76) 96 Mechanical Ventilator 50.00 12/15/19 17:08 45 120/58 12/15/19 17:00 45 128/61 (83) 94 Mechanical Ventilator 50.00 12/15/19 16:11 58 121/62 12/15/19 16:07 36.4 12/15/19 16:00 61 10 114/55 (74) 91 Mechanical Ventilator 50.00 12/15/19 15:58 61 114/57 12/15/19 15:52 Mechanical Ventilator 50 12/15/19 15:00 48 16 112/59 (76) 95 Mechanical Ventilator 50.00 12/15/19 14:58 48 28 96 50 12/15/19 14:00 48 28 122/62 (82) 97 Mechanical Ventilator 60.00 12/15/19 13:52 47 104/57 12/15/19 13:00 47 28 106/58 (74) 97 Mechanical Ventilator 60.00 12/15/19 12:57 46 12/15/19 12:00 46 27 108/58 (75) 97 Mechanical Ventilator 60.00 12/15/19 11:21 Mechanical Ventilator 60 12/15/19 11:17 36.3 12/15/19 11:00 46 27 113/60 (77) 96 Mechanical Ventilator 60.00 I & O 12/16/19 07:00 Intake Total 4291 ml Output Total 1700 ml Balance 2591 ml Capillary Refill : Less Than 3 SecondsGreater Than 3 Seconds General Appearance: No Apparent Distress HEENT: TMs Normal Neck: Normal Inspection Respiratory: Decreased Breath Sounds, Wheezing Cardiovascular: Regular Rate, Rhythm Gastrointestinal: soft, distended, other (wound clean/dry) Extremity: Normal Capillary Refill Neurologic/Psychiatric: Other (on vent/sedated) Skin: Normal Color Lymphatic: No Adenopathy Results Lab Laboratory Tests 12/15/19 16:20: Hemoglobin 8.6L, Hematocrit 25L 12/16/19 04:00: Hemoglobin 8.2L, Hematocrit 24L, White Blood Count 22.7H, Red Blood Count 2.76L, Mean Corpuscular Volume 87, Mean Corpuscular Hemoglobin 30, Mean Corpuscular Hemoglobin Concent 34, Red Cell Distribution Width 17.7H, Platelet Count 146, Mean Platelet Volume 11.1H, Neutrophils (%) (Auto) 84H, Lymphocytes (%) (Auto) 10L, Monocytes (%) (Auto) 5, Eosinophils (%) (Auto) 0, Basophils (%) (Auto) 1, Neutrophils # (Auto) 19.1H, Lymphocytes # (Auto) 2.3, Monocytes # (Auto) 1.2H, Eosinophils # (Auto) 0.0, Basophils # (Auto) 0.1, Blood Gas Puncture Site RIGHT RADIAL, Blood Gas Patient Temperature 36.6, Arterial Blood pH 7.39, Arterial Blood Partial Pressure CO2 39, Arterial Blood Partial Pressure O2 69L, Arterial Blood HCO3 23, Arterial Blood Total CO2 24.2, Arterial Blood Oxygen Saturation 92L, Arterial Blood Base Excess -1.4, Luke Test ART LINE, Blood Gas Ventilator Setting YES, Blood Gas Inspired Oxygen 40%, Sodium Level 141, Potassium Level 3.8, Chloride Level 108H, Carbon Dioxide Level 19L, Anion Gap 14, Blood Urea Nitrogen 52H, Creatinine 2.37H, Estimat Glomerular Filtration Rate 27, BUN/Creatinine Ratio 22, Glucose Level 125H, Calcium Level 6.4L, Corrected Calcium 7.8L, Phosphorus Level 4.6, Magnesium Level 2.4, Total Bilirubin 2.0H, Aspartate Amino Transf (AST/SGOT) 928H, Alanine Aminotransferase (ALT/SGPT) 385H , Alkaline Phosphatase 57, B-Type Natriuretic Peptide 879.8H, Total Protein 4.6L , Albumin 2.3L Microbiology 12/14/19 Gram Stain - Final, Resulted 12/14/19 Body Fluid Culture - Preliminary, Resulted No growth 12/14/19 Blood Culture - Preliminary, Resulted No growth 12/12/19 Gram Stain - Final, Complete 12/12/19 Sputum Culture - Final, Complete Usual upper respiratory chris Assessment/Plan Assessment/Plan Assess & Plan/Chief Complaint s/p lap right hemicolectomy with intraperitoneal hemorrhage x2 and s/p expl lap. patient remains critically ill however labs/abg/vent improved. patients mother in full understanding of situation. expressed no heroic measures and in no improvement in next several days may make CC only. will continue current critical management for now and continue to communitcate with family. Clinical Quality Measures DVT/VTE Risk/Contraindication: Risk Factor Score Per Nursin RFS Level Per Nursing on Admit: 4+=Very High KADIE CLAY MD Dec 16, 2019 10:09
[2019-12-16] MEDS ORDERED: TPN IV SCH (10:15)
--- NOTE | 2019-12-16 11:09 | NUR ---
TPN Pharmacy to dose: Potassium of 3.8, per TPN initiation guidelines, will give potassium 40mEq IV over 4 hous x 1 before start of TPN. Initiate TPN at a reduced calorie rate for 1st 24 hours. Total calories of 1990Kcal, volume of 1700ml's over 24 hours 70ml/hr.
[2019-12-16] MEDS: VANCOMYCIN 750 MG/NS 250 ML IVPB IV SCH ×4 (11:26→21:01)
[2019-12-16] MEDS: POTASSIUM CL 10 MEQ/50 ML IVPB (PRE-MIX) IV SCH ×4 (12:30→14:00)
--- NOTE | 2019-12-16 12:45 | Progress Note - Hospitalist ---
Subjective HPI/CC On Admission Date Seen by Provider: Dec 16, 2019 Time Seen by Provider: 09:00 Pt is a 69yoCM with a PMH of HTN and COPD who was admitted for hemicolectomy due to colon cancer. He underwent surgery yesterday and I am consulted for medical management. He is hard of hearing but what he was able to answer he states he's hungry but having pain. 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 Otherwise he has not complaints. Subjective/Events-last exam he remains intubated and sedated. Focused Exam Lactate Level 12/14/19 12:45: Lactic Acid Level 2.55*H 12/14/19 14:45: Lactic Acid Level 2.58*H 12/15/19 04:16: Lactic Acid Level 3.01*H Objective Exam Vital Signs Vital Signs Date Time Temp Pulse Resp B/P (MAP) Pulse Ox O2 Delivery O2 Flow Rate FiO2 12/16/19 12:39 62 12/16/19 12:00 27 124/76 (92) 98 Mechanical Ventilator 35.00 12/16/19 10:35 40 12/16/19 07:33 36.3 Capillary Refill : Less Than 3 SecondsGreater Than 3 Seconds General Appearance: No Apparent Distress Respiratory: Other (coarse breath sounds, intubated and mechanically ventilated) Cardiovascular: Regular Rate, Rhythm, No Murmur Gastrointestinal: Abnormal Bowel Sounds (hypoactive), Distended, Other (midline abdominal incision) Extremity: Normal Inspection, Pedal Edema Neurologic/Psychiatric: Other (sedated) Skin: Normal Color, Warm/Dry Results/Procedures Lab Laboratory Tests 12/15/19 16:20 12/16/19 04:00 Patient resulted labs reviewed. Imaging: Reviewed Imaging Report Assessment/Plan Assessment and Plan Assess & Plan/Chief Complaint Acute blood loss anemia Postoperative anemia Status post hemicolectomy Septic shock Secondary bacterial peritonitis Pneumonia Acute respiratory failure with hypoxia Endotracheally intubated Fluid overload Acute kidney injury Likely ATN Shock liver Lactic acidosis Poor prognosis hemoglobin stable continue pressors as needed, titrating down giving Bumex today A. fib with RVR resolved, transitioned off of amiodarone remains intubated and sedated continue Vanc/Zosyn/Eraxis eICU and pulmonology consulted Hemorrhagic shock, resolved Atrial fibrillation with RVR, resolved Critical Care Critically Ill Patient Diagnosis/Problems Diagnosis/Problems (1) Postoperative hemorrhagic shock Status: Acute (2) Acute blood loss anemia Status: Acute (3) Status post right hemicolectomy Status: Acute (4) FLACO (acute kidney injury) Status: Acute (5) ATN (acute tubular necrosis) Status: Acute (6) Shock liver Status: Acute (7) Lactic acidosis Status: Acute (8) Poor prognosis Status: Acute (9) Endotracheally intubated Status: Acute (10) Acute respiratory failure with hypoxia Status: Acute Clinical Quality Measures DVT/VTE Risk/Contraindication: Risk Factor Score Per Nursin RFS Level Per Nursing on Admit: 4+=Very High MARLEE WINKLER MD Dec 16, 2019 12:45
[2019-12-16 16:34] LABS: HEMOGLOBIN 7.4 G/DL (13.3-17.7)
[2019-12-16] MEDS ORDERED: VITAMIN MULTI IV SCH ×10 (17:00)
[2019-12-16] MEDS ORDERED: [UNRECOGNIZED DRUG - OTHER] IV SCH ×10 (17:00)
[2019-12-16] MEDS ORDERED: POTASSIUM PHOSPHATE IV SCH ×10 (17:00)
[2019-12-16] MEDS ORDERED: TRACE ELEMENTS IV SCH ×10 (17:00)
[2019-12-16] MEDS ORDERED: NS IV 1000 ML 1,000 ML IV SCH (17:00)
[2019-12-16] MEDS ORDERED: ELECTROLYTES INJ 40 ML, POTASSIUM PHOSPHATE INJ 24 MM, VITAMIN MULTI INJECTION 10 ML, T... IV SCH ×7 (17:00)
--- NOTE | 2019-12-16 17:38 | NUR ---
THIS RN SPOKE WITH PT SON ALONSO AT THIS TIME. SON VOICED CONCERN REGARDING PATIENT CODE STATUS, ET STATED THAT PATIENT WOULD WANT TO BE FULL CODE ET HAVE ALL MEASURES TAKEN. SON WAS READING THIS RN DOCUMENT THAT HE STATED WERE HIS FATHERS WISHES. HE DID STATE THEY WERE NOT NOTARIZED OR SIGNED BY ANYONE OTHER THEN HIS FATHER AND SISTER. SON REQUESTS CALL FROM PHYSICIANS IN MORNING REGARDING FATHERS CONDITION ET PROGNOSIS. THIS RN SPOKE WITH DR. WINKLER REGARDING SONS WISHES, D/T SON BEING NEXT OF KIN, PATIENT CODE STATUS WAS UPDATED TO FULL CODE PER CONVERSATION WITH DR WINKLER. DR. WINKLER ET DR CLAY NOTIFIED OF SONS WISH TO SPEAK WITH PHYSICIANS OVER PHONE IN MORNING. DR. WINKLER SUGGESTED THAT SON AND GRANDMOTHER AND POSSIBLY PHYSICIAN OR RISK MANAGEMENT HAVE A CONFERENCE CALL WHERE EVERYONE CAN BE ON SAME PAGE.
[2019-12-16] MEDS ORDERED: NS IV 500 ML 500 ML IV SCH (18:15)
[2019-12-16] MEDS ORDERED: NS IV 500 ML 500 ML ONE (19:42)
[2019-12-16] MEDS: NOREPINEPHRINE 8 MG in NS (IVPB) 250 ML IV SCH (23:32)
[2019-12-17] VITALS (30 sets, daily range): BP systolic 101–169; BP diastolic 59–101
[2019-12-17] MEDS: PROPOFOL DRIP (ICU) 100 ML IV SCH ×4 (01:47→21:02)
[2019-12-17 02:02] LABS: BASOPHILS # (AUTO) 0.1 10^3/uL (0.0-0.1); BASOPHILS % (AUTO) 0 % (0-10); EOSINOPHILS % (AUTO) 0 % (0-10); HEMATOCRIT 23 % (40-54); LYMPHOCYTES # (AUTO) 2.5 X 10^3 (1.0-4.0); LYMPHOCYTES % (AUTO) 10 % (12-44); MEAN CORPUSCULAR HEMOGLOBIN 30 PG (25-34); MEAN CORPUSCULAR HGB CONC 34 G/DL (32-36); MEAN CORPUSCULAR VOLUME 88 FL (80-99); MEAN PLATELET VOLUME 11.6 FL (7.4-10.4); MONOCYTES # (AUTO) 0.9 X 10^3 (0.0-1.0); MONOCYTES % (AUTO) 4 % (0-12); NEUTROPHILS # (AUTO) 20.5 X 10^3 (1.8-7.8); NEUTROPHILS % (AUTO) 85 % (42-75); PLATELET COUNT 140 10^3/uL (130-400); RED CELL DISTRIBUTION WIDTH 17.4 % (10.0-14.5)
[2019-12-17 02:02] LABS: ABG BASE EXCESS -2.1 MMOL/L (-2.5-2.5); ABG OXYGEN SATURATION 74 % (94-100); ABG PCO2 42 MMHG (35-45); ABG PH 7.35 (7.37-7.43); ABG PO2 46 MMHG (79-93); ABG TCO2 24.1 MMOL/L (21.0-31.0)
[2019-12-17 02:05] LABS: ALLENS TEST YES-POS
[2019-12-17 02:06] LABS: INSPIRED O2 35%; PATIENT TEMP 36.6; VENTILATOR YES
[2019-12-17 02:20] LABS: CALCIUM 6.6 MG/DL (8.5-10.1); CREATININE SERUM 2.33 MG/DL (0.60-1.30); MAGNESIUM 2.6 MG/DL (1.6-2.4); PHOSPHORUS 4.3 MG/DL (2.3-4.7); POTASSIUM 3.9 MMOL/L (3.6-5.0)
[2019-12-17] MEDS: RT-ALBUTEROL/IPRATROPIUM 3 ML (DUONEB) VIAL INH SCH ×6 (02:21→22:01)
[2019-12-17] MEDS: POTASSIUM CL 10MEQ/50ML IVPB 50 ML IV SCH (02:30)
[2019-12-17] MEDS: MAGNESIUM 1 GM/100 ML IVPB 100 ML IV SCH (02:31)
[2019-12-17] MEDS: KCL 20 MEQ TAB (K-DUR) PO SCH (02:31)
[2019-12-17] MEDS: EPINEPHrine 1 MG INJECTION 2 MG in NS (IVPB) 248 ML IV SCH ×5 (04:03→19:40)
--- NOTE | 2019-12-17 04:40 | Pulmonary Progress Note ---
Subjective Time Seen by a Provider: 05:03 Subjective/Events-last exam Pt is sedated on vent. Sepsis Event Evaluation Height, Weight, BMI Height: '" Weight: lbs. oz. kg; 27.93 BMI Method: Focused Exam Lactate Level 12/14/19 12:45: Lactic Acid Level 2.55*H 12/14/19 14:45: Lactic Acid Level 2.58*H 12/15/19 04:16: Lactic Acid Level 3.01*H Exam Exam Vital Signs Date Time Temp Pulse Resp B/P (MAP) Pulse Ox O2 Delivery O2 Flow Rate FiO2 12/17/19 03:24 95 Mechanical Ventilator 35 12/17/19 03:05 36.6 12/17/19 03:00 64 104/62 (76) 96 Mechanical Ventilator 35.00 12/17/19 02:21 68 28 96 35 12/17/19 02:00 70 107/66 (80) 96 Mechanical Ventilator 35.00 12/17/19 01:47 112/67 12/17/19 01:00 61 12/17/19 01:00 61 27 101/59 (73) 95 Mechanical Ventilator 35.00 12/17/19 00:00 64 28 101/59 (73) 95 Mechanical Ventilator 35.00 12/16/19 23:22 95 Mechanical Ventilator 35 12/16/19 23:00 36.2 12/16/19 23:00 67 27 110/73 (85) 96 Mechanical Ventilator 35.00 12/16/19 22:55 103/58 12/16/19 22:32 36.4 67 26 106/65 96 Mechanical Ventilator 35 12/16/19 22:00 62 28 99/57 (71) 98 Mechanical Ventilator 35.00 12/16/19 21:59 61 28 98 35 12/16/19 21:00 73 11 111/67 (82) 97 Mechanical Ventilator 35.00 12/16/19 20:58 36.4 73 26 116/67 95 Mechanical Ventilator 35 12/16/19 20:44 36.4 66 26 103/59 Mechanical Ventilator 35 12/16/19 20:00 36.4 12/16/19 20:00 95 Mechanical Ventilator 35 12/16/19 20:00 71 18 106/70 (82) 95 Mechanical Ventilator 35.00 12/16/19 19:53 62 28 97 35 12/16/19 19:33 102/58 8/23/20 19:00 68 12/16/19 19:00 68 28 106/63 (77) 95 Mechanical Ventilator 35.00 12/16/19 16:00 73 27 99/61 (74) 93 Mechanical Ventilator 40.00 12/16/19 16:00 95 Mechanical Ventilator 35 12/16/19 15:02 35.3 12/16/19 15:01 70 111/69 12/16/19 15:00 70 27 111/69 (83) 94 Mechanical Ventilator 40.00 12/16/19 14:30 Mechanical Ventilator 40.00 12/16/19 14:13 55 29 100 35 12/16/19 14:00 55 28 105/69 (81) 99 Mechanical Ventilator 35.00 12/16/19 13:00 57 28 105/68 (80) 99 Mechanical Ventilator 35.00 12/16/19 12:39 62 12/16/19 12:00 99 Mechanical Ventilator 40 12/16/19 12:00 56 27 124/76 (92) 98 Mechanical Ventilator 35.00 12/16/19 11:00 64 28 118/74 (89) 95 Mechanical Ventilator 35.00 12/16/19 10:35 67 30 94 40 12/16/19 10:19 130/82 12/16/19 10:00 56 28 132/79 (96) 96 Mechanical Ventilator 35.00 12/16/19 09:00 67 27 115/56 (75) 96 Mechanical Ventilator 35.00 12/16/19 08:00 97 Mechanical Ventilator 35 12/16/19 08:00 52 28 101/57 (72) 97 Mechanical Ventilator 35.00 12/16/19 07:33 36.3 12/16/19 07:00 54 12/16/19 07:00 58 27 107/59 (75) 96 Mechanical Ventilator 35.00 12/16/19 06:48 51 28 97 35 12/16/19 06:00 55 27 103/56 (72) 97 Mechanical Ventilator 35.00 12/16/19 05:11 66 107/42 12/16/19 05:00 74 27 108/67 (81) 98 Mechanical Ventilator 35.00 I & O 12/17/19 07:00 Intake Total 1275 ml Output Total 2070 ml Balance -795 ml Height & Weight Height: '" Weight: lbs. oz. kg; 27.93 BMI Method: General Appearance: No Apparent Distress HEENT: TMs Normal Neck: Normal Inspection Respiratory: Other (coarse breath sounds, intubated and mechanically ventilated) Cardiovascular: Regular Rate, Rhythm, No Murmur Capillary Refill: Greater Than 3 Seconds Gastrointestinal: soft, distended, other (wound clean/dry) Extremity: Normal Inspection, Pedal Edema Neurologic/Psychiatric: Other (sedated) Skin: Normal Color, Warm/Dry Lymphatic: No Adenopathy Results Lab Laboratory Tests 12/15/19 16:20 12/16/19 04:00 12/16/19 16:25 12/17/19 01:45 Assessment/Plan Assessment/Plan s/p elective laparoscopic right hemicolectomy on 12/02 s/p repeat surgery secondary to intra abdominal hemorrhage 12/05 s/p repeat surgery 12/06 secondary to intra abdominal hemorrhage (exploratory laparotomy, ligation mesenteric vessel, splenectomy.) Acute respiratory failure -Pt is intubated on vent -Will do sedation vacation and check weaning parameters -EICU managed through the weekend. -Give bumex. Pt is very edematous. -Propofol and fentanyl gtt currently -Labs and radiology reviewed Acute severe sepsis with septic shock -Currently on Zosyn, vanco, and Eraxis -Joseph cultures Ecoli and Klebsiella from peritoneal fluid -Sputum culture is pending. -Neosynephrin and vasopressin -- are now off hypotension has improved - Solucortef - Continue for now -IVF currently NS Malnutrition -Pt is currently on TPN per Dr. Duarte -Will d/c IVF since pt is edematous and on TPN Acute Afib- resolved Nonanion gapped metabolic acidosis - improved - IVF to bicarb gtt - has been d/c'd Acute renal failure -Monitor close s/p Bleeding -- Hb has now stabilized -Dr. Duarte following - Pt is now s/p 10 units of PRBC. s/p FFP and Platelets Acute renal failure -IVF -Monitor Colon cancer s/p resection CHRIS TORRES DO Dec 17, 2019 04:40
[2019-12-17] MEDS ORDERED: BUMETANIDE 1 MG/4 ML (BUMEX) VIAL IV ONE (05:00)
[2019-12-17] MEDS ORDERED: LACTATED RINGERS 1,000 ML IV SCH (05:00)
[2019-12-17] MEDS ORDERED: BUMETANIDE 1 MG/4 ML (BUMEX) VIAL ONE (05:03)
[2019-12-17] MEDS ORDERED: ALBUMIN 25% 25 GM/100 ML 100 ML IV ONE (05:05)
[2019-12-17] MEDS: ALBUMIN 25% 25 GM/100 ML 100 ML IV SCH ×3 (05:09→22:14)
[2019-12-17] MEDS: HYDROCORTISONE 100 MG/2 ML (Solu-CORTEF) VIAL IV SCH ×3 (05:10→17:02)
[2019-12-17] MEDS: inSUlin ASPART (NovoLOG) 1 UNIT/0.01 ML (CHARGE PER UNIT) SQ SCH ×3 (05:10→17:01)
[2019-12-17] MEDS: PIPERACILLIN/TAZO 4.5 GM/NS 100 ML IV SCH ×6 (05:10→22:14)
[2019-12-17] MEDS: VASOPRESSIN INJECTION 20 UNIT in NS (IVPB) 100 ML IV SCH ×2 (05:17→14:51)
[2019-12-17 06:52] LABS: ABG BASE EXCESS -2.3 MMOL/L (-2.5-2.5); ABG OXYGEN SATURATION 91 % (94-100); ABG PCO2 40 MMHG (35-45); ABG PH 7.37 (7.37-7.43); ABG PO2 68 MMHG (79-93); ABG TCO2 23.4 MMOL/L (21.0-31.0)
[2019-12-17 06:53] LABS: ALLENS TEST YES-POS; INSPIRED O2 35%; PATIENT TEMP 37.3; VENTILATOR YES
--- NOTE | 2019-12-17 06:59 | Diagnostic Imaging Report ---
INDICATION: Ventilator support, postop. COMPARISON STUDY: Chest from yesterday. FINDINGS: Frontal view of the chest demonstrates an endotracheal tube and enteric tube and central venous catheter remain in place. Bibasilar infiltrates and small effusions appear stable. IMPRESSION: Intubated chest with stable bibasilar infiltrates and small pleural effusions. Dictated by: Dictated on workstation # [id number]
[2019-12-17] MEDS: BROMOCRIPTINE 2.5 MG PO SCH ×2 (07:31→17:02)
[2019-12-17] MEDS: PANTOPRAZOLE 40 MG (PROTONIX) VIAL IV SCH ×2 (07:57→22:14)
[2019-12-17] MEDS: SENNA W/DOCUSATE (SENOKOT S) TABLET PO SCH (07:57)
--- NOTE | 2019-12-17 08:00 | Progress Note - Hospitalist ---
Subjective HPI/CC On Admission Date Seen by Provider: Dec 17, 2019 Time Seen by Provider: 07:53 Pt is a 69yoCM with a PMH of HTN and COPD who was admitted for hemicolectomy due to colon cancer. He underwent surgery yesterday and I am consulted for medical management. He is hard of hearing but what he was able to answer he states he's hungry but having pain. He is using his [employer] and states it help. Otherwise he has not complaints. Subjective/Events-last exam Pt remains intubated and sedated on vent. Discussed with RN. Propofol off since this morning and starting to wake up for her. Focused Exam Lactate Level 12/14/19 12:45: Lactic Acid Level 2.55*H 12/14/19 14:45: Lactic Acid Level 2.58*H 12/15/19 04:16: Lactic Acid Level 3.01*H Objective Exam Vital Signs Vital Signs Date Time Temp Pulse Resp B/P (MAP) Pulse Ox O2 Delivery O2 Flow Rate FiO2 12/17/19 07:03 95 28 93 35 12/17/19 06:00 131/63 (85) Mechanical Ventilator 35.00 12/17/19 03:05 36.6 Capillary Refill : Less Than 3 SecondsGreater Than 3 Seconds General Appearance: Other (intubated and sedated) Respiratory: Wheezing (end expiratory), Other (on vent) Cardiovascular: Regular Rate, Rhythm, No Murmur Gastrointestinal: Abnormal Bowel Sounds (quiet), Distended, Other (FRANK drains in place with serosanguinous fluid noted) Genital/Rectal: Other (scrotal edema) Extremity: Normal Capillary Refill, Pedal Edema Neurologic/Psychiatric: Other (sedated, appears comfortbale) Results/Procedures Lab Laboratory Tests 12/16/19 16:25 12/17/19 01:45 Patient resulted labs reviewed. Imaging: Reviewed Imaging Report Assessment/Plan Assessment and Plan Assess & Plan/Chief Complaint Acute blood loss anemia Hemorrhagic shock, resolved Postoperative anemia Status post hemicolectomy Septic shock Secondary bacterial peritonitis Fluid overload Acute kidney injury Likely ATN Shock liver Lactic acidosis Poor prognosis hemoglobin up today slightly now off pressors Bumex and Albumn ordered this AM - Continue postoperative management per primary - Creatinine stable - Still on solu-cortef- likely start weaning tomorrow if maintains off pressors today - TPN for nutrition Pneumonia Acute respiratory failure with hypoxia Endotracheally intubated - Pulm consulted, appreciate recs continue Vanc/Zosyn/Eraxis - Triglycerides trending up but still acceptable and propofol now held Atrial fibrillation with RVR A. fib with RVR resolved, transitioned off of amiodarone Critical Care Critically Ill Patient Clinical Quality Measures DVT/VTE Risk/Contraindication: Risk Factor Score Per Nursin RFS Level Per Nursing on Admit: 4+=Very High DAYA PASTOR MD Dec 17, 2019 08:00
--- NOTE | 2019-12-17 08:24 | NUR ---
PURULENT DRAINAGE NOTED TO RIGHT FRANK DRAIN. DR PASTOR ON FLOOR AND ASSESSED DRAINAGE. NEW ORDERS RECEIVED TO SEND CULTURE TO LAB. NEW DRAIN SPONGES PLACED AROUND FRANK DRAINS AND NEW GAUZE/ABD/TAPE PLACED OVER ABD INCISION. Addendum: 12/17/19 at 0828 by MEJIA BURGER RN DR DANNA AIKEN.
[2019-12-17] MEDS ORDERED: TROUGH ORDER-PHARMACY XX NR (08:30)
[2019-12-17] MEDS: VANCOMYCIN 750 MG/NS 250 ML IVPB IV SCH ×2 (09:07)
[2019-12-17] MEDS: ANIDULAFUNGIN INJECTION 100 MG in NS (IVPB) 100 ML IV SCH (09:31)
[2019-12-17] MEDS: NON-FORMULARY MEDICATION 1 EA EA (Fluticasone/Umeclidin/Vilanter (Trelegy Ellipta 100-62.5 IH SCH (11:04)
--- NOTE | 2019-12-17 11:30 | NUR ---
Anointed today by Fr Darek Ramirez.
[2019-12-17] MEDS: fentaNYL INJECTION 1,250 MCG in NS (IVPB) 250 ML IV SCH (11:58)
--- NOTE | 2019-12-17 12:25 | NUR ---
TPN: 69 Y/O M, HT 71 INCHES, ABW 110 KG, IBW 75.3 KG, BMI 34.1. Original ABW on 12/03/2019 was 90.8 kg, will use adjusted body weight of 81 kg for calculating metabolic needs. CC: Colon Cancer with Laparoscopic Right Hemicolectomy, FLACO, Pt currently NPO, with TPN at 70 ml/hr providing 1990 kcal with 100 gm pro., was also on propofol providing additional 575 kcal. Propofol stopped for now. PLAN: 20-30 kcal/adjusted body weight providing 1620 - 2430 kcal, due to FLACO protein at 1.2 gm/kg or 100 gm. Will leave lipids out of TPN for now. New TPN will provide 1590 kcal with 100 gm pro at 66 ml/hr. Will increase acetate in TPN and lower chloride. Advance kcal and adjust electrolytes pending labs.
--- NOTE | 2019-12-17 12:46 | NUR ---
VANCOMYCIN TROUGH 27.8 ON 12/16. RECHECK LEVEL 12/17 AM WHEN OTHER LABS ARE SCHEDULED TO BE DRAWN.
--- NOTE | 2019-12-17 14:38 | NUR ---
pt starting to open eyes and slowly following commands. pts bp trending up to 160s/80s. dr heart informed, new orders received to give additional bumex 1mg x1. rt going to attempt weaning parameters today.
[2019-12-17] MEDS: NOREPINEPHRINE 8 MG in NS (IVPB) 250 ML IV SCH (14:51)
--- NOTE | 2019-12-17 15:01 | NUR ---
"Received dietary consult for TPN. PMH: CA(colon); HTN; COPD; afib; s/p hemicolectomy Est kcal needs: 1650 kcal | 15 kcal/kg Est Pro needs: 111 g Pro | 1.0 g Pro/kg Note recent 44# wt gain x11d, per chart review. This RD believes this to be from fluid buildup. Note altered lab values: Ca 6.6 (L); Cl 108 (H); BUN 61 (H); cr 2.33 (H); glu 177 (H); Mg 2.6 (H); and TG 394 (H) Note pt currently receiving following TPN: 1000ml 10% AA; 500ml D70; and 250ml 20% lipids. Total provides 1990 kcal (18 kcal/kg); 100 g Pro (0.9 g Pro/kg). Would recommend decreasing total kcal to 1650 and increasing protein to 110 g Pro to help pt meet nutrition needs and prevent overfeeding. Will continue to follow and reassess as pt needs, intake, and status change. Duncan Blackburn, MS, RD, LD [phone]"
[2019-12-17] MEDS: BUMETANIDE 1 MG/4 ML (BUMEX) VIAL IV NR (15:04)
--- NOTE | 2019-12-17 15:47 | NUR ---
Pastoral care visit at bedside w/pts Mom. we talked of pts wishes as she understood them and then spoke of pts children and how their understanding might differ. She advised she was going to call pts son this evening and discuss terminal worker plans. I encouraged her in this and further shared if myself or other staff could assist we are available. I offered listening, encouragement and compassion.
--- NOTE | 2019-12-17 16:47 | NUR ---
FIO2 INCREASED TO 45%, PT O2 SATS IN UPPER 80S. DR TORRES INFORMED, NEW ORDERS RECEIVED TO INCREASE PEEP TO 10.
[2019-12-17] MEDS ORDERED: [UNRECOGNIZED DRUG - OTHER] IV SCH ×9 (17:00)
[2019-12-17] MEDS ORDERED: SODIUM CHLORIDE IV SCH ×9 (17:00)
[2019-12-17] MEDS ORDERED: POTASSIUM ACETATE IV SCH ×9 (17:00)
[2019-12-17 17:16] LABS: ABG BASE EXCESS -1.3 MMOL/L (-2.5-2.5); ABG OXYGEN SATURATION 89 % (94-100); ABG PCO2 47 MMHG (35-45); ABG PO2 59 MMHG (79-93); ABG TCO2 25.6 MMOL/L (21.0-31.0)
[2019-12-17 17:28] LABS: ABG PH 7.32 (7.37-7.43); ALLENS TEST POSITIVE; INSPIRED O2 60%; PATIENT TEMP 36.1; VENTILATOR YES
--- NOTE | 2019-12-17 17:28 | Progress Note ---
Subjective Date Seen by a Provider: Dec 17, 2019 Time Seen by a Provider: 17:00 Subjective/Events-last exam on vent/sedated. did not tolerate vent ween today. off pressors. diffuse edema. Focused Exam Lactate Level 12/15/19 04:16: Lactic Acid Level 3.01*H Objective Exam Vital Signs Date Time Temp Pulse Resp B/P (MAP) Pulse Ox O2 Delivery O2 Flow Rate FiO2 12/17/19 17:23 Mechanical Ventilator 60.00 12/17/19 17:18 Mechanical Ventilator 80.00 12/17/19 17:17 Mechanical Ventilator 100.00 12/17/19 17:05 87 132/75 12/17/19 16:08 Mechanical Ventilator 45.00 12/17/19 16:00 97 22 141/72 (95) 96 Mechanical Ventilator 35.00 12/17/19 16:00 Mechanical Ventilator 45 12/17/19 15:10 36.1 12/17/19 15:00 112 19 169/86 (113) 85 Mechanical Ventilator 35.00 12/17/19 14:27 101 27 93 35 12/17/19 14:00 102 25 155/101 (119) 92 Mechanical Ventilator 35.00 12/17/19 13:00 105 26 159/85 (109) 92 Mechanical Ventilator 35.00 12/17/19 12:44 107 12/17/19 12:00 105 25 154/86 (108) 92 Mechanical Ventilator 35.00 12/17/19 11:59 Mechanical Ventilator 35 12/17/19 11:16 36.2 12/17/19 11:07 104 28 90 35 12/17/19 11:00 104 24 167/81 (109) 90 Mechanical Ventilator 35.00 12/17/19 10:00 101 23 165/78 (107) 91 Mechanical Ventilator 35.00 12/17/19 09:00 101 21 167/79 (108) 92 Mechanical Ventilator 35.00 12/17/19 08:50 91 Mechanical Ventilator 35 12/17/19 08:00 97 22 159/78 (105) 92 Mechanical Ventilator 35.00 12/17/19 07:54 94 12/17/19 07:51 36.2 12/17/19 07:03 95 28 93 35 12/17/19 07:00 92 24 150/86 (107) 93 Mechanical Ventilator 35.00 12/17/19 06:00 84 11 131/63 (85) 94 Mechanical Ventilator 35.00 12/17/19 05:00 68 29 109/66 (80) 96 Mechanical Ventilator 35.00 12/17/19 04:38 109/63 12/17/19 04:00 65 26 102/64 (77) 96 Mechanical Ventilator 35.00 12/17/19 03:24 95 Mechanical Ventilator 35 12/17/19 03:05 36.6 12/17/19 03:00 64 104/62 (76) 96 Mechanical Ventilator 35.00 12/17/19 02:21 68 28 96 35 12/17/19 02:00 70 107/66 (80) 96 Mechanical Ventilator 35.00 12/17/19 01:47 112/67 12/17/19 01:00 61 12/17/19 01:00 61 27 101/59 (73) 95 Mechanical Ventilator 35.00 12/17/19 00:00 64 28 101/59 (73) 95 Mechanical Ventilator 35.00 12/16/19 23:22 95 Mechanical Ventilator 35 12/16/19 23:00 36.2 12/16/19 23:00 67 27 110/73 (85) 96 Mechanical Ventilator 35.00 12/16/19 22:55 103/58 12/16/19 22:32 36.4 67 26 106/65 96 Mechanical Ventilator 35 12/16/19 22:00 62 28 99/57 (71) 98 Mechanical Ventilator 35.00 12/16/19 21:59 61 28 98 35 12/16/19 21:00 73 11 111/67 (82) 97 Mechanical Ventilator 35.00 12/16/19 20:58 36.4 73 26 116/67 95 Mechanical Ventilator 35 12/16/19 20:44 36.4 66 26 103/59 Mechanical Ventilator 35 12/16/19 20:00 36.4 12/16/19 20:00 95 Mechanical Ventilator 35 12/16/19 20:00 71 18 106/70 (82) 95 Mechanical Ventilator 35.00 12/16/19 19:53 62 28 97 35 12/16/19 19:33 102/58 12/16/19 19:00 68 12/16/19 19:00 68 28 106/63 (77) 95 Mechanical Ventilator 35.00 I & O 12/17/19 07:00 Intake Total 1375 ml Output Total 2070 ml Balance -695 ml Capillary Refill : Less Than 3 SecondsLess Than 3 Seconds General Appearance: Chronically ill HEENT: PERRL/EOMI Neck: Supple Respiratory: Decreased Breath Sounds, Rhonci, Wheezing Cardiovascular: Regular Rate, Rhythm Gastrointestinal: soft, distended Extremity: Slow Capillary Refill Neurologic/Psychiatric: Other (vent/sedated) Skin: Normal Color Lymphatic: No Adenopathy Results Lab Laboratory Tests 12/16/19 18:13: Glucometer 135H 12/16/19 22:59: Glucometer 178H 12/17/19 01:45: White Blood Count 24.0H, Red Blood Count 2.65L, Hemoglobin 8.0L, Hematocrit 23L, Mean Corpuscular Volume 88, Mean Corpuscular Hemoglobin 30, Mean Corpuscular Hemoglobin Concent 34, Red Cell Distribution Width 17.4H, Platelet Count 140, Mean Platelet Volume 11.6H, Neutrophils (%) (Auto) 85H, Lymphocytes (%) (Auto) 10L, Monocytes (%) (Auto) 4, Eosinophils (%) (Auto) 0, Basophils (%) (Auto) 0, Neutrophils # (Auto) 20.5H, Lymphocytes # (Auto) 2.5, Monocytes # (Auto) 0.9, Eosinophils # (Auto) 0.0, Basophils # (Auto) 0.1, Sodium Level 140, Potassium Level 3.9, Chloride Level 108H, Carbon Dioxide Level 18L, Anion Gap 14, Blood Urea Nitrogen 61H, Creatinine 2.33H, Estimat Glomerular Filtration Rate 28, BUN/Creatinine Ratio 26, Glucose Level 177H, Calcium Level 6.6L, Phosphorus Level 4.3, Magnesium Level 2.6H, Triglycerides Level 394H 12/17/19 01:56: Blood Gas Puncture Site LEFT RADIAL, Blood Gas Patient Temperature 36.6, Arterial Blood pH 7.35L, Arterial Blood Partial Pressure CO2 42, Arterial Blood Partial Pressure O2 46L, Arterial Blood HCO3 23, Arterial Blood Total CO2 24.1, Arterial Blood Oxygen Saturation 74L, Arterial Blood Base Excess -2.1, Luke Test YES-POS, Blood Gas Ventilator Setting YES, Blood Gas Inspired Oxygen 35% 12/17/19 06:38: Blood Gas Puncture Site RIGHT RADIAL, Blood Gas Patient Temperature 37.3, Arterial Blood pH 7.37, Arterial Blood Partial Pressure CO2 40, Arterial Blood Partial Pressure O2 68L, Arterial Blood HCO3 22L, Arterial Blood Total CO2 23.4, Arterial Blood Oxygen Saturation 91L, Arterial Blood Base Excess -2.3, Luke Test YES-POS, Blood Gas Ventilator Setting YES, Blood Gas Inspired Oxygen 35% 12/17/19 08:30: Vancomycin Level Trough 27.8*H 12/17/19 10:02: Lab Scanned Report Transfusion Reaction Form 12/17/19 11:22: Glucometer 152H 12/17/19 17:01: Glucometer 153H 12/17/19 17:10: Microbiology 12/14/19 Gram Stain - Final, Resulted 12/14/19 Body Fluid Culture - Preliminary, Resulted No growth 12/14/19 Blood Culture - Preliminary, Resulted No growth 12/12/19 Gram Stain - Final, Complete 12/12/19 Sputum Culture - Final, Complete Usual upper respiratory chris Assessment/Plan Assessment/Plan Assess & Plan/Chief Complaint s/p lap right hemicolectomy with intraperitoneal hemorrhage x2 and s/p expl lap. patient remains critically ill however labs/abg/vent improved. patients mother in full understanding of situation. expressed no heroic measures and in no improvement in next several days may make CC only. will continue current critical management for now and continue to communicate with family. Clinical Quality Measures DVT/VTE Risk/Contraindication: Risk Factor Score Per Nursin RFS Level Per Nursing on Admit: 4+=Very High KADIE CLAY MD Dec 17, 2019 17:28
[2019-12-18] VITALS (31 sets, daily range): BP systolic 112–159; BP diastolic 59–96
[2019-12-18] MEDS: EPINEPHrine 1 MG INJECTION 2 MG in NS (IVPB) 248 ML IV SCH ×7 (00:33→21:59)
[2019-12-18] MEDS: VASOPRESSIN INJECTION 20 UNIT in NS (IVPB) 100 ML IV SCH ×3 (00:33→17:07)
[2019-12-18] MEDS: HYDROCORTISONE 100 MG/2 ML (Solu-CORTEF) VIAL IV SCH ×2 (00:38→05:46)
[2019-12-18] MEDS: inSUlin ASPART (NovoLOG) 1 UNIT/0.01 ML (CHARGE PER UNIT) SQ SCH ×4 (00:39→18:34)
[2019-12-18] MEDS: PROPOFOL DRIP (ICU) 100 ML IV SCH ×6 (00:44→22:18)
[2019-12-18] MEDS: RT-ALBUTEROL/IPRATROPIUM 3 ML (DUONEB) VIAL INH SCH ×6 (02:05→21:44)
[2019-12-18 02:47] LABS: BASOPHILS # (AUTO) 0.1 10^3/uL (0.0-0.1); BASOPHILS % (AUTO) 1 % (0-10); EOSINOPHILS % (AUTO) 0 % (0-10); HEMATOCRIT 23 % (40-54); HEMOGLOBIN 7.4 G/DL (13.3-17.7); LYMPHOCYTES # (AUTO) 3.5 X 10^3 (1.0-4.0); LYMPHOCYTES % (AUTO) 19 % (12-44); MEAN CORPUSCULAR HEMOGLOBIN 30 PG (25-34); MEAN CORPUSCULAR HGB CONC 33 G/DL (32-36); MEAN CORPUSCULAR VOLUME 90 FL (80-99); MONOCYTES # (AUTO) 0.6 X 10^3 (0.0-1.0); MONOCYTES % (AUTO) 3 % (0-12); NEUTROPHILS # (AUTO) 14.2 X 10^3 (1.8-7.8); NEUTROPHILS % (AUTO) 77 % (42-75); PLATELET COUNT 94 10^3/uL (130-400); RED CELL DISTRIBUTION WIDTH 17.8 % (10.0-14.5); WHITE BLOOD COUNT 18.4 10^3/uL (4.3-11.0)
[2019-12-18] MEDS ORDERED: TROUGH ORDER-PHARMACY XX NR (03:00)
[2019-12-18 03:13] LABS: CALCIUM 7.1 MG/DL (8.5-10.1); CREATININE SERUM 2.38 MG/DL (0.60-1.30); MAGNESIUM 2.5 MG/DL (1.6-2.4); PHOSPHORUS 4.6 MG/DL (2.3-4.7); POTASSIUM 3.8 MMOL/L (3.6-5.0); VANCOMYCIN,TROUGH 21.4 UG/ML (10.0-20.0)
[2019-12-18 03:30] LABS: ABG BASE EXCESS -0.8 MMOL/L (-2.5-2.5); ABG OXYGEN SATURATION 84 % (94-100); ABG PCO2 49 MMHG (35-45); ABG PO2 54 MMHG (79-93); ABG TCO2 25.9 MMOL/L (21.0-31.0)
[2019-12-18 03:32] LABS: ABG PH 7.32 (7.37-7.43)
[2019-12-18 03:33] LABS: ALLENS TEST YES-POS; INSPIRED O2 60%; PATIENT TEMP 37.1; VENTILATOR YES
--- NOTE | 2019-12-18 05:24 | Pulmonary Progress Note ---
KATHLEEN LEVINE,MED STUDENT 12/18/19 0523: Subjective Date Seen by a Provider: Dec 18, 2019 Time Seen by a Provider: 05:11 Subjective/Events-last exam Patient seen and is sedated on vent Sepsis Event Evaluation Height, Weight, BMI Height: '" Weight: lbs. oz. kg; 27.93 BMI Method: Exam Exam Vital Signs Date Time Temp Pulse Resp B/P (MAP) Pulse Ox O2 Delivery O2 Flow Rate FiO2 12/18/19 04:41 61 119/65 12/18/19 04:00 94 Mechanical Ventilator 60 12/18/19 03:00 61 26 119/65 (83) 96 Mechanical Ventilator 60.00 12/18/19 02:05 62 26 96 60 12/18/19 02:00 60 25 112/63 (79) 96 Mechanical Ventilator 60.00 12/18/19 01:00 68 12/18/19 01:00 68 26 122/71 (88) 96 Mechanical Ventilator 60.00 12/18/19 00:44 66 127/69 12/18/19 00:00 96 Mechanical Ventilator 60 12/18/19 00:00 68 25 126/67 (86) 96 Mechanical Ventilator 60.00 12/17/19 23:00 70 26 132/71 (91) 95 Mechanical Ventilator 60.00 12/17/19 22:01 69 26 95 60 12/17/19 22:00 68 26 121/65 (83) 95 Mechanical Ventilator 60.00 12/17/19 21:02 75 123/73 12/17/19 21:00 70 25 123/68 (86) 95 Mechanical Ventilator 60.00 12/17/19 20:00 37.1 12/17/19 20:00 71 25 121/62 (81) 94 Mechanical Ventilator 60.00 12/17/19 19:46 94 Mechanical Ventilator 60 12/17/19 19:00 74 12/17/19 19:00 74 26 122/70 (87) 93 Mechanical Ventilator 60.00 12/17/19 18:27 75 26 91 60 12/17/19 18:00 80 25 127/69 (88) 90 Mechanical Ventilator 60.00 12/17/19 17:23 Mechanical Ventilator 60.00 12/17/19 17:18 Mechanical Ventilator 80.00 12/17/19 17:17 Mechanical Ventilator 100.00 8/24/20 17:05 87 132/75 12/17/19 17:00 85 22 132/75 (94) 89 Mechanical Ventilator 45.00 12/17/19 16:08 Mechanical Ventilator 45.00 12/17/19 16:00 97 22 141/72 (95) 96 Mechanical Ventilator 35.00 12/17/19 16:00 Mechanical Ventilator 45 12/17/19 15:10 36.1 12/17/19 15:00 112 19 169/86 (113) 85 Mechanical Ventilator 35.00 12/17/19 14:27 101 27 93 35 12/17/19 14:00 102 25 155/101 (119) 92 Mechanical Ventilator 35.00 12/17/19 13:00 105 26 159/85 (109) 92 Mechanical Ventilator 35.00 12/17/19 12:44 107 12/17/19 12:00 105 25 154/86 (108) 92 Mechanical Ventilator 35.00 12/17/19 11:59 Mechanical Ventilator 35 12/17/19 11:16 36.2 12/17/19 11:07 104 28 90 35 12/17/19 11:00 104 24 167/81 (109) 90 Mechanical Ventilator 35.00 12/17/19 10:00 101 23 165/78 (107) 91 Mechanical Ventilator 35.00 12/17/19 09:00 101 21 167/79 (108) 92 Mechanical Ventilator 35.00 12/17/19 08:50 91 Mechanical Ventilator 35 12/17/19 08:00 97 22 159/78 (105) 92 Mechanical Ventilator 35.00 12/17/19 07:54 94 12/17/19 07:51 36.2 12/17/19 07:03 95 28 93 35 12/17/19 07:00 92 24 150/86 (107) 93 Mechanical Ventilator 35.00 12/17/19 06:00 84 11 131/63 (85) 94 Mechanical Ventilator 35.00 I & O 12/18/19 07:00 Intake Total 2675 ml Output Total 4340 ml Balance -1665 ml Height & Weight Height: '" Weight: lbs. oz. kg; 27.93 BMI Method: General Appearance: Chronically ill HEENT: PERRL/EOMI Neck: Supple Respiratory: Decreased Breath Sounds, Rhonci, Wheezing Cardiovascular: Regular Rate, Rhythm, JVD, Other (edemic ) Capillary Refill: Less Than 3 Seconds Gastrointestinal: soft, distended Extremity: Pedal Edema, Slow Capillary Refill, Swelling Neurologic/Psychiatric: Other (vent/sedated) Results Lab Laboratory Tests 12/16/19 16:25 12/17/19 01:45 12/18/19 02:35 Assessment/Plan Assessment/Plan s/p elective laparoscopic right hemicolectomy on 12/02 s/p repeat surgery secondary to intra abdominal hemorrhage 12/05 s/p repeat surgery 12/06 secondary to intra abdominal hemorrhage (exploratory laparotomy, ligation mesenteric vessel, splenectomy.) Acute respiratory failure -Pt is intubated on vent -Propofol and fentanyl gtt - Duoneb Q4hrs -Labs and radiology reviewed Acute severe sepsis with septic shock -Currently on Zosyn, vanco, and Eraxis - Solucortef Malnutrition -Pt is currently on TPN - Albumin Acute Afib- resolved Nonanion gapped metabolic acidosis - resolved Respiratory Acidosis s/p Bleeding -- Hb has now stabilized -Dr. Duarte is aware - Pt is now s/p 12 units of PRBC. s/p 6units FFP and 2 unitsPlatelets Acute renal failure - recieved 1mg Bumex yesterday - IVF is held - Patient is edematous in bilateral UE/LE and scotum Colon cancer s/p resection CHRIS SCHMIDT DO 12/18/19 0703: Exam Exam General Appearance: Chronically ill, Other (sedated on vent) HEENT: PERRL/EOMI Neck: Supple Respiratory: Decreased Breath Sounds, Rhonci, Wheezing Cardiovascular: Regular Rate, Rhythm, JVD, Other (edemic ) Capillary Refill: Less Than 3 Seconds Gastrointestinal: soft, distended Extremity: Normal Capillary Refill, Pedal Edema, Slow Capillary Refill, Swelling Skin: Warm/Dry Assessment/Plan Assessment/Plan s/p elective laparoscopic right hemicolectomy on 12/02 s/p repeat surgery secondary to intra abdominal hemorrhage 12/05 s/p repeat surgery 12/06 secondary to intra abdominal hemorrhage (exploratory laparotomy, ligation mesenteric vessel, splenectomy.) Acute respiratory failure with pulmonary edema and worsening hypoxia -Daily sedation vacations. -Pt did not tolerate yesterday will hold sedation vacation today. -Give Bumex -Check echocardiogram -Pt is intubated on vent -Peep increased to 14 and pt is very edematous. Bumex is ordered. -Propofol and fentanyl gtt - Duoneb Q4hrs -Labs and radiology reviewed Acute severe sepsis with septic shock -Currently on Zosyn, vanco, and Eraxis - Solucortef -- d/c Malnutrition -Pt is currently on TPN per Dr. Gerald Irwin -Bumex - Albumin Acute Afib- resolved Nonanion gapped metabolic acidosis - resolved Respiratory Acidosis s/p Bleeding -- Hb has now stabilized -Dr. Duarte is aware - Pt is now s/p 12 units of PRBC. s/p 6units FFP and 2 unitsPlatelets Acute renal failure - Monitor close -Metabolic acidosis has improved. Cr appears stable. K+ is stable - IVF is held - Patient is edematous in bilateral UE/LE and scotum Colon cancer s/p resection Supervisory-Addendum Brief Verification & Attestation Participated in pt care: history, MDM, physical Personally performed: exam, history, MDM Care discussed with: Medical Student Verification and Attestation of Medical Student E/M Service A medical student performed and documented this service in my presence. I reviewed and verified all information documented by the medical student and made modifications to such information, when appropriate. I personally performed the physical exam and medical decision making. Chris Schmidt, Dec 18, 2019,07:03 KATHLEEN LEVINE,MED STUDENT Dec 18, 2019 05:23 CHRIS SCHMIDT DO Dec 18, 2019 07:03
[2019-12-18] MEDS: PIPERACILLIN/TAZO 4.5 GM/NS 100 ML IV SCH ×2 (05:46)
[2019-12-18] MEDS: ALBUMIN 25% 25 GM/100 ML 100 ML IV SCH (05:46)
[2019-12-18] MEDS: BUMETANIDE 1 MG/4 ML (BUMEX) VIAL IV NR (06:05)
[2019-12-18] MEDS: fentaNYL INJECTION 1,250 MCG in NS (IVPB) 250 ML IV SCH ×2 (06:06→22:12)
[2019-12-18 06:13] LABS: BASOPHILS # (AUTO) 0.1 10^3/uL (0.0-0.1); BASOPHILS % (AUTO) 0 % (0-10); EOSINOPHILS % (AUTO) 0 % (0-10); HEMATOCRIT 23 % (40-54); HEMOGLOBIN 7.6 G/DL (13.3-17.7); LYMPHOCYTES # (AUTO) 3.7 X 10^3 (1.0-4.0); LYMPHOCYTES % (AUTO) 20 % (12-44); MEAN CORPUSCULAR HEMOGLOBIN 30 PG (25-34); MEAN CORPUSCULAR HGB CONC 33 G/DL (32-36); MEAN CORPUSCULAR VOLUME 91 FL (80-99); MEAN PLATELET VOLUME 11.7 FL (7.4-10.4); MONOCYTES # (AUTO) 0.6 X 10^3 (0.0-1.0); MONOCYTES % (AUTO) 3 % (0-12); NEUTROPHILS % (AUTO) 76 % (42-75); PLATELET COUNT 109 10^3/uL (130-400); WHITE BLOOD COUNT 18.3 10^3/uL (4.3-11.0)
[2019-12-18] MEDS: MAGNESIUM 1 GM/100 ML IVPB 100 ML IV SCH (06:22)
[2019-12-18] MEDS: KCL 20 MEQ TAB (K-DUR) PO SCH (06:22)
[2019-12-18] MEDS: POTASSIUM CL 10MEQ/50ML IVPB 50 ML IV SCH ×5 (06:22→09:17)
[2019-12-18] MEDS: NOREPINEPHRINE 8 MG in NS (IVPB) 250 ML IV SCH ×2 (06:28→21:59)
[2019-12-18] MEDS: BROMOCRIPTINE 2.5 MG PO SCH ×2 (07:23→17:07)
[2019-12-18] MEDS: SENNA W/DOCUSATE (SENOKOT S) TABLET PO SCH (07:24)
--- NOTE | 2019-12-18 07:59 | Diagnostic Imaging Report ---
INDICATION: Postoperative. TECHNIQUE: Single view chest 3:20 AM. CORRELATION STUDY: 12/17/2019 FINDINGS: Endotracheal tube remains over the high trachea at the level of the thoracic inlet. Left-sided central line tip over the SVC. Heart size and mediastinum are generally stable. Increasing opacities at both lung bases likely combination of effusions along with atelectasis, infiltrate and/or edema right greater than left. Upper lung orantes with emphysematous change. IMPRESSION: 1. Increasing bibasilar opacities likely a combination of effusion along with infiltrate, edema and/or atelectasis at the lung bases right greater than left. Dictated by: Dictated on workstation # [id number]
--- NOTE | 2019-12-18 08:16 | Progress Note - Hospitalist ---
Subjective HPI/CC On Admission Date Seen by Provider: Dec 18, 2019 Time Seen by Provider: 08:14 Pt is a 69yoCM with a PMH of HTN and COPD who was admitted for hemicolectomy due to colon cancer. He underwent surgery yesterday and I am consulted for medical management. He is hard of hearing but what he was able to answer he states he's hungry but having pain. He is using his [employer]IP [employer] SCORER and states it help. Otherwise he has not complaints. Subjective/Events-last exam Pt remains intubated and sedated. Per RN no bowel sounds or output yet. Off pressors. Objective Exam Vital Signs Vital Signs Date Time Temp Pulse Resp B/P (MAP) Pulse Ox O2 Delivery O2 Flow Rate FiO2 12/18/19 07:02 68 28 94 50 12/18/19 07:00 137/80 (99) Mechanical Ventilator 50.00 12/17/19 20:00 37.1 Capillary Refill : Less Than 3 SecondsLess Than 3 Seconds General Appearance: Other (sedated on vent) Respiratory: No Accessory Muscle Use, Decreased Breath Sounds; No Wheezing; Other (on vent) Cardiovascular: Regular Rate, Rhythm, No Murmur Gastrointestinal: Abnormal Bowel Sounds, Other (FRANK drains in place right drain now with purulent fluid, left remains serosanguinous; ABD dressing in place from open surgery- clean/dry/intact) Genital/Rectal: Other (olvera in place, scrotal edema noted) Extremity: Normal Capillary Refill, Pedal Edema Neurologic/Psychiatric: Other (sedated, appears comfortable) Results/Procedures Lab Laboratory Tests 12/18/19 02:35 12/18/19 05:55 Patient resulted labs reviewed. Imaging: Reviewed Imaging Report Assessment/Plan Assessment and Plan Assess & Plan/Chief Complaint Acute blood loss anemia Hemorrhagic shock, resolved Postoperative anemia Status post hemicolectomy Septic shock Secondary bacterial peritonitis Fluid overload Acute kidney injury Likely ATN Shock liver Lactic acidosis Poor prognosis hemoglobin down slightly today- trend still off pressors Bumex and Albumin again today - Continue postoperative management per primary - Creatinine stable - DC solu-cortef today - TPN for nutrition Pneumonia Acute respiratory failure with hypoxia Endotracheally intubated - Pulm consulted, appreciate recs continue Zosyn- DC Eraxis, Vanc Held - Triglycerides trended up, will trend Atrial fibrillation with RVR A. fib with RVR resolved, transitioned off of amiodarone DVT PPX: SCDs- lovenox held for bleeding Critical Care Critically Ill Patient Clinical Quality Measures DVT/VTE Risk/Contraindication: Risk Factor Score Per Nursin RFS Level Per Nursing on Admit: 4+=Very High DAYA PASTOR MD Dec 18, 2019 08:16
[2019-12-18] MEDS: PANTOPRAZOLE 40 MG (PROTONIX) VIAL IV SCH ×2 (08:25→22:13)
--- NOTE | 2019-12-18 09:09 | NUR ---
VANCOMYCIN TROUGH 27.8 ON 12/16 @ 0830 & 21.4 ON 12/17 @ 0235. ON HOLD SINCE 12/16. CALCULATIONS: TIME BETWEEN LEVELS ~ 18 HOURS. Kd = [id number], t 1/2 ~ 47.7 HRS. CLIN CA MG Q48H SHOULD GIVE TROUGH IN RANGE OF ~18. CHANGED ORDER TO VANCOMYCIN 1500MG Q48H STARTING 12/17 @ 1600 (STOP DATE 12/19 @ 0959).
[2019-12-18] MEDS: ARTIFICIAL TEARS OINT (LACRI-LUBE) 3.5 GM TUBE OU SCH ×2 (09:16→21:00)
--- NOTE | 2019-12-18 10:39 | NUR ---
TPN: TPN running AT 66 ML/HR PROVIDING 1590 KCAL WITH 100 GM PROTEIN, NO LIPID. Propofol restarted providing 575 kcal from lipids. PLAN; Reduce dextrose kcal in TPN, TPN will continue at 66 ml/hr providing 1250 kcal with 100 gm protein plus 575 kcal from Propofol for total of 1825 kcal. Will remove all sodium and chloride from TPN.
[2019-12-18] MEDS ORDERED: PIPERACILLIN/TAZO 4.5 GM/NS 100 ML IV NR ×2 (13:00)
--- NOTE | 2019-12-18 13:14 | Progress Note ---
Subjective Date Seen by a Provider: Dec 18, 2019 Time Seen by a Provider: 12:00 Subjective/Events-last exam on vent/sedated. not on pressors. has needed increased FiO2. fibrinoexudative drainage right FRANK drain. Objective Exam Vital Signs Date Time Temp Pulse Resp B/P (MAP) Pulse Ox O2 Delivery O2 Flow Rate FiO2 12/18/19 12:54 88 161/92 12/18/19 12:00 81 35 138/74 (95) 93 Mechanical Ventilator 50.00 12/18/19 11:18 37.4 12/18/19 11:00 98 34 154/88 (110) 96 Mechanical Ventilator 50.00 12/18/19 10:55 96 26 94 50 12/18/19 10:00 61 25 129/77 (94) 94 Mechanical Ventilator 50.00 12/18/19 09:00 65 26 129/80 (96) 95 Mechanical Ventilator 50.00 12/18/19 08:29 69 130/73 12/18/19 08:00 62 26 132/72 (92) 95 Mechanical Ventilator 50.00 12/18/19 08:00 95 Mechanical Ventilator 50 12/18/19 07:15 68 12/18/19 07:02 68 28 94 50 12/18/19 07:00 69 27 137/80 (99) 94 Mechanical Ventilator 50.00 12/18/19 06:46 68 22 136/76 (96) 94 Mechanical Ventilator 50.00 12/18/19 06:00 67 30 127/76 (93) 94 Mechanical Ventilator 60.00 12/18/19 05:00 59 25 113/59 (77) 96 Mechanical Ventilator 60.00 12/18/19 04:41 61 119/65 12/18/19 04:00 94 Mechanical Ventilator 60 12/18/19 04:00 63 20 114/67 (83) 96 Mechanical Ventilator 60.00 12/18/19 03:00 61 26 119/65 (83) 96 Mechanical Ventilator 60.00 12/18/19 02:05 62 26 96 60 12/18/19 02:00 60 25 112/63 (79) 96 Mechanical Ventilator 60.00 12/18/19 01:00 68 12/18/19 01:00 68 26 122/71 (88) 96 Mechanical Ventilator 60.00 12/18/19 00:44 66 127/69 12/18/19 00:00 96 Mechanical Ventilator 60 12/18/19 00:00 68 25 126/67 (86) 96 Mechanical Ventilator 60.00 12/17/19 23:00 70 26 132/71 (91) 95 Mechanical Ventilator 60.00 12/17/19 22:01 69 26 95 60 12/17/19 22:00 68 26 121/65 (83) 95 Mechanical Ventilator 60.00 12/17/19 21:02 75 123/73 12/17/19 21:00 70 25 123/68 (86) 95 Mechanical Ventilator 60.00 12/17/19 20:00 37.1 12/17/19 20:00 71 25 121/62 (81) 94 Mechanical Ventilator 60.00 12/17/19 19:46 94 Mechanical Ventilator 60 12/17/19 19:00 74 12/17/19 19:00 74 26 122/70 (87) 93 Mechanical Ventilator 60.00 12/17/19 18:27 75 26 91 60 12/17/19 18:00 80 25 127/69 (88) 90 Mechanical Ventilator 60.00 12/17/19 17:23 Mechanical Ventilator 60.00 12/17/19 17:18 Mechanical Ventilator 80.00 12/17/19 17:17 Mechanical Ventilator 100.00 12/17/19 17:05 87 132/75 12/17/19 17:00 85 22 132/75 (94) 89 Mechanical Ventilator 45.00 12/17/19 16:08 Mechanical Ventilator 45.00 12/17/19 16:00 97 22 141/72 (95) 96 Mechanical Ventilator 35.00 12/17/19 16:00 Mechanical Ventilator 45 12/17/19 15:10 36.1 12/17/19 15:00 112 19 169/86 (113) 85 Mechanical Ventilator 35.00 12/17/19 14:27 101 27 93 35 12/17/19 14:00 102 25 155/101 (119) 92 Mechanical Ventilator 35.00 I & O 12/18/19 07:00 Intake Total 2950 ml Output Total 4710 ml Balance -1760 ml Capillary Refill : Less Than 3 SecondsLess Than 3 Seconds General Appearance: Chronically ill HEENT: PERRL/EOMI Neck: Supple Respiratory: Decreased Breath Sounds, Rhonci, Wheezing Cardiovascular: Regular Rate, Rhythm Gastrointestinal: soft, distended Extremity: Slow Capillary Refill Neurologic/Psychiatric: Other (vent/sedated) Skin: Normal Color Lymphatic: No Adenopathy Results Lab Laboratory Tests 12/17/19 17:01: Glucometer 153H 12/17/19 17:10: Blood Gas Puncture Site RIGHT RADIAL, Blood Gas Patient Temperature 36.1, Arterial Blood pH 7.32*L, Arterial Blood Partial Pressure CO2 47H, Arterial Bl ood Partial Pressure O2 59L, Arterial Blood HCO3 24, Arterial Blood Total CO2 25.6, Arterial Blood Oxygen Saturation 89L, Arterial Blood Base Excess -1.3, Luke Test POSITIVE, Blood Gas Ventilator Setting YES, Blood Gas Inspired Oxygen 60% 12/18/19 00:32: Glucometer 193H 12/18/19 02:35: White Blood Count 18.4H, Red Blood Count 2.50L, Hemoglobin 7.4L, Hematocrit 23L, Mean Corpuscular Volume 90, Mean Corpuscular Hemoglobin 30, Mean Corpuscular Hemoglobin Concent 33, Red Cell Distribution Width 17.8H, Platelet Count 94L, Mean Platelet Volume 11.0H, Neutrophils (%) (Auto) 77H, Lymphocytes (%) (Auto) 19, Monocytes (%) (Auto) 3, Eosinophils (%) (Auto) 0, Basophils (%) (Auto) 1, Neutrophils # (Auto) 14.2H, Lymphocytes # (Auto) 3.5, Monocytes # (Auto) 0.6, Eosinophils # (Auto) 0.0, Basophils # (Auto) 0.1, Sodium Level 144, Potassium Level 3.8, Chloride Level 110H, Carbon Dioxide Level 21, Anion Gap 13, Blood Urea Nitrogen 69H, Creatinine 2.38H, Estimat Glomerular Filtration Rate 27, BUN/Creatinine Ratio 29, Glucose Level 173H, Calcium Level 7.1L, Phosphorus Level 4.6, Magnesium Level 2.5H, Vancomycin Level Trough 21.4H 12/18/19 03:20: Blood Gas Puncture Site RIGHT RADIAL, Blood Gas Patient Temperature 37.1, Arterial Blood pH 7.32*L, Arterial Blood Partial Pressure CO2 49H, Arterial Blood Partial Pressure O2 54L, Arterial Blood HCO3 24, Arterial Blood Total CO2 25.9, Arterial Blood Oxygen Saturation 84L, Arterial Blood Base Excess -0.8, Luke Test YES-POS, Blood Gas Ventilator Setting YES, Blood Gas Inspired Oxygen 60% 8/25/20 05:55: White Blood Count 18.3H, Red Blood Count 2.57L, Hemoglobin 7.6L, Hematocrit 23L, Mean Corpuscular Volume 91, Mean Corpuscular Hemoglobin 30, Mean Corpuscular Hemoglobin Concent 33, Red Cell Distribution Width 18.0H, Platelet Count 109L, Mean Platelet Volume 11.7H, Neutrophils (%) (Auto) 76H, Lymphocytes (%) (Auto) 20, Monocytes (%) (Auto) 3, Eosinophils (%) (Auto) 0, Basophils (%) (Auto) 0, Neutrophils # (Auto) 14.0H, Lymphocytes # (Auto) 3.7, Monocytes # (Auto) 0.6, Eosinophils # (Auto) 0.0, Basophils # (Auto) 0.1 12/18/19 11:20: Glucometer 207H 12/18/19 12:46: Lab Scanned Report Transfusion Reaction Form Microbiology 12/17/19 Gram Stain - Final, Resulted 12/17/19 Body Fluid Culture - Preliminary, Resulted Gram Negative Isra 12/14/19 Blood Culture - Preliminary, Resulted No growth 12/12/19 Gram Stain - Final, Complete 12/12/19 Sputum Culture - Final, Complete Usual upper respiratory chris Assessment/Plan Assessment/Plan Assess & Plan/Chief Complaint s/p lap right hemicolectomy with intraperitoneal hemorrhage x2 and s/p expl lap. patient remains critically ill however labs/abg/vent improved. patients mother in full understanding of situation. expressed no heroic measures and in no improvement in next several days may make CC only. will continue current critical management for now and continue to communicate with family. son next of kin and requests full code. lives in [facility] and in transit to visit. Clinical Quality Measures DVT/VTE Risk/Contraindication: Risk Factor Score Per Nursin RFS Level Per Nursing on Admit: 4+=Very High KADIE CLAY MD Dec 18, 2019 13:14
--- NOTE | 2019-12-18 13:35 | NUR ---
RD FOLLOW-UP Note pt is currently NPO, and receiving TPN, which provides 1590 kcal and 100 g Pro. Pt also receiving propofol, which provides 575 kcal. Total provides 2165 kcal (19 kcal/kg) and 100 g Pro (0.9 g Pro/kg). Note Pharmacy note about plan to decrease dextrose in TPN to provide (with propofol) 1825 kcal (16 kcal/kg). This is within appropriate amounts for the pt to meet nutritional and protein needs. Will continue to follow and reassess as pt needs, intake, and status change. Duncan Blackburn, MS, RD, LD [phone]
--- NOTE | 2019-12-18 14:38 | NUR ---
SHANEKA/MARCIA following for social service consult. The patient is currently sedated and on vent. CM/SS will follow with patient for discharge planning. SHANEKA/MARCIA contacted the patient's primary care nurse Connie to get information on referral need. She states she believes it is for Code Status of the patient. Per chart review, the physician noted that patient's next of kin is traveling here and wishes for the patient to be full code and all measures taken. In the notes, it states that Dr. Lockwood made patient full code per the next of kin request. SHANEKA/SS attempted to contact the patient's son Eldon Roland ([phone]) to discuss options for patient's care. The phone was transferred to his company. SHANEKA/SS just left name and call back number. CM/MARCIA will continue to follow for patient's plan of care.
[2019-12-18 14:52] LABS: BILIRUBIN,TOTAL 1.6 MG/DL (0.1-1.0); CALCIUM 7.8 MG/DL (8.5-10.1); CREATININE SERUM 2.37 MG/DL (0.60-1.30); TOTAL PROTEIN 4.8 GM/DL (6.4-8.2)
[2019-12-18 14:57] LABS: FIBRIN DEGRADATION PRODUCTS 9.28 UG/ML (0.00-0.49); INR 1.1 (0.8-1.4)
[2019-12-18] MEDS: PIPERACILLIN/TAZOBACTAM (BULK) 4.5 GM in NS (IVPB) 100 ML IV SCH ×2 (15:00→22:14)
[2019-12-18] MEDS ORDERED: VANCOMYCIN 1500 MG/NS 500 ML IVPB IV SCH ×2 (16:00)
--- NOTE | 2019-12-18 16:53 | Diagnostic Imaging Report ---
INDICATION: Tube placement. TIME OF EXAM: 04:41 p.m. COMPARISON: Correlation is made with prior chest from earlier the same day. FINDINGS: ET tube has tip above the skip. Left subclavian line has tip overlying the SVC. NG tube passed below the diaphragm. Lungs appear to be fairly clear. No infiltrates are seen. No effusion or pneumothorax is detected. IMPRESSION: Satisfactory location of tubes and lines. No acute feature is detected. Dictated by: Dictated on workstation # [id number]
[2019-12-18] MEDS ORDERED: POTASSIUM PHOSPHATE IV SCH ×8 (17:00)
[2019-12-18] MEDS ORDERED: [UNRECOGNIZED DRUG - OTHER] IV SCH ×8 (17:00)
[2019-12-18] MEDS ORDERED: POTASSIUM ACETATE IV SCH ×8 (17:00)
[2019-12-19] VITALS (32 sets, daily range): BP systolic 75–166; BP diastolic 48–119
[2019-12-19] MEDS: inSUlin ASPART (NovoLOG) 1 UNIT/0.01 ML (CHARGE PER UNIT) SQ SCH ×5 (00:25→23:48)
[2019-12-19] MEDS: PROPOFOL DRIP (ICU) 100 ML IV SCH ×7 (00:27→23:42)
[2019-12-19] MEDS: EPINEPHrine 1 MG INJECTION 2 MG in NS (IVPB) 248 ML IV SCH ×7 (02:13→23:23)
[2019-12-19] MEDS: VASOPRESSIN INJECTION 20 UNIT in NS (IVPB) 100 ML IV SCH ×3 (02:13→18:05)
[2019-12-19] MEDS: RT-ALBUTEROL/IPRATROPIUM 3 ML (DUONEB) VIAL INH SCH ×6 (02:29→22:20)
[2019-12-19 03:21] LABS: ABG BASE EXCESS -0.2 MMOL/L (-2.5-2.5); ABG OXYGEN SATURATION 92 % (94-100); ABG PCO2 42 MMHG (35-45); ABG PH 7.38 (7.37-7.43); ABG PO2 63 MMHG (79-93); ABG TCO2 25.5 MMOL/L (21.0-31.0)
[2019-12-19 03:22] LABS: ALLENS TEST YES-POS
[2019-12-19 03:23] LABS: BASOPHILS # (AUTO) 0.1 10^3/uL (0.0-0.1); BASOPHILS % (AUTO) 0 % (0-10); EOSINOPHILS # (AUTO) 0.3 10^3/uL (0.0-0.3); EOSINOPHILS % (AUTO) 1 % (0-10); HEMATOCRIT 26 % (40-54); HEMOGLOBIN 8.4 G/DL (13.3-17.7); INSPIRED O2 50%; LYMPHOCYTES # (AUTO) 5.6 X 10^3 (1.0-4.0); LYMPHOCYTES % (AUTO) 27 % (12-44); MEAN CORPUSCULAR HEMOGLOBIN 30 PG (25-34); MEAN CORPUSCULAR HGB CONC 32 G/DL (32-36); MEAN CORPUSCULAR VOLUME 92 FL (80-99); MEAN PLATELET VOLUME 11.7 FL (7.4-10.4); MONOCYTES # (AUTO) 0.3 X 10^3 (0.0-1.0); MONOCYTES % (AUTO) 1 % (0-12); NEUTROPHILS # (AUTO) 14.8 X 10^3 (1.8-7.8); NEUTROPHILS % (AUTO) 70 % (42-75); PATIENT TEMP 36.8; PLATELET COUNT 144 10^3/uL (130-400); RED CELL DISTRIBUTION WIDTH 17.8 % (10.0-14.5); VENTILATOR YES; WHITE BLOOD COUNT 21.1 10^3/uL (4.3-11.0)
[2019-12-19 03:44] LABS: CALCIUM 7.8 MG/DL (8.5-10.1); CREATININE SERUM 2.23 MG/DL (0.60-1.30); MAGNESIUM 2.4 MG/DL (1.6-2.4); PHOSPHORUS 4.2 MG/DL (2.3-4.7); POTASSIUM 3.9 MMOL/L (3.6-5.0)
[2019-12-19] MEDS ORDERED: MEROPENEM 1,000 MG in WATER (STERILE) FOR INJECTION 20 ML IV SCH (05:00)
--- NOTE | 2019-12-19 05:02 | Pulmonary Progress Note ---
Subjective Time Seen by a Provider: 04:57 Subjective/Events-last exam Pt is sedated on vent. Sepsis Event Evaluation Height, Weight, BMI Height: '" Weight: lbs. oz. kg; 27.93 BMI Method: Exam Exam Vital Signs Date Time Temp Pulse Resp B/P (MAP) Pulse Ox O2 Delivery O2 Flow Rate FiO2 12/19/19 04:00 80 26 132/75 (94) 96 Mechanical Ventilator 60.00 12/19/19 04:00 93 Mechanical Ventilator 60 12/19/19 03:48 80 140/77 12/19/19 03:43 60.00 12/19/19 03:00 77 27 134/83 (100) 93 Mechanical Ventilator 50.00 12/19/19 02:21 75 29 96 70 12/19/19 02:00 70 26 137/74 (95) 99 Mechanical Ventilator 50.00 12/19/19 01:00 70 27 131/72 (91) 97 Mechanical Ventilator 70.00 12/19/19 01:00 70 12/19/19 00:27 80 130/70 12/19/19 00:00 68 21 121/68 (85) 96 Mechanical Ventilator 70.00 12/19/19 00:00 93 Mechanical Ventilator 50 12/18/19 23:00 80 26 130/70 (90) 95 Mechanical Ventilator 70.00 12/18/19 22:18 85 128/67 12/18/19 22:00 111 28 159/75 (103) 89 Mechanical Ventilator 70.00 12/18/19 21:52 106 24 90 Mechanical Ventilator 70.00 12/18/19 21:48 70 12/18/19 21:41 101 27 92 50 12/18/19 21:00 68 26 123/69 (87) 96 Mechanical Ventilator 50.00 12/18/19 20:00 Mechanical Ventilator 70 12/18/19 20:00 67 25 121/71 (88) 96 Mechanical Ventilator 50.00 12/18/19 20:00 36.8 12/18/19 19:00 63 12/18/19 19:00 63 26 123/65 (84) 96 Mechanical Ventilator 50.00 12/18/19 18:22 65 26 96 50 12/18/19 18:00 69 25 125/65 (85) 96 Mechanical Ventilator 50.00 12/18/19 17:24 76 154/78 12/18/19 17:00 144/79 (100) Mechanical Ventilator 50.00 12/18/19 16:00 37.0 12/18/19 16:00 70 20 123/67 (85) 95 Mechanical Ventilator 50.00 12/18/19 15:54 95 Mechanical Ventilator 50 12/18/19 15:18 79 27 95 50 12/18/19 15:00 86 34 157/82 (107) 93 Mechanical Ventilator 50.00 12/18/19 14:00 75 16 133/71 (91) 94 Mechanical Ventilator 50.00 12/18/19 13:22 80 12/18/19 13:00 86 34 157/82 (107) 93 Mechanical Ventilator 50.00 12/18/19 12:54 88 161/92 12/18/19 12:00 81 35 138/74 (95) 93 Mechanical Ventilator 50.00 12/18/19 12:00 93 Mechanical Ventilator 50 12/18/19 11:18 37.4 12/18/19 11:00 98 34 154/88 (110) 96 Mechanical Ventilator 50.00 12/18/19 10:55 96 26 94 50 12/18/19 10:00 61 25 129/77 (94) 94 Mechanical Ventilator 50.00 12/18/19 09:00 65 26 129/80 (96) 95 Mechanical Ventilator 50.00 12/18/19 08:29 69 130/73 12/18/19 08:00 62 26 132/72 (92) 95 Mechanical Ventilator 50.00 12/18/19 08:00 95 Mechanical Ventilator 50 12/18/19 07:15 68 12/18/19 07:02 68 28 94 50 12/18/19 07:00 69 27 137/80 (99) 94 Mechanical Ventilator 50.00 12/18/19 06:46 68 22 136/76 (96) 94 Mechanical Ventilator 50.00 12/18/19 06:00 67 30 127/76 (93) 94 Mechanical Ventilator 60.00 12/18/19 05:00 59 25 113/59 (77) 96 Mechanical Ventilator 60.00 I & O 12/19/19 07:00 Intake Total 2508 ml Output Total 3195 ml Balance -687 ml Height & Weight Height: '" Weight: lbs. oz. kg; 27.93 BMI Method: General Appearance: Chronically ill, Other (sedated on vent) HEENT: PERRL/EOMI Neck: Supple Respiratory: Decreased Breath Sounds, Rhonci, Wheezing Cardiovascular: Regular Rate, Rhythm, JVD, Other (edemic ) Capillary Refill: Less Than 3 Seconds Gastrointestinal: soft, distended Extremity: Normal Capillary Refill, Pedal Edema, Slow Capillary Refill, Swelling Neurologic/Psychiatric: Other (sedated) Skin: Warm/Dry Lymphatic: No Adenopathy Results Lab Laboratory Tests 12/18/19 02:35 12/18/19 05:55 12/18/19 14:00 12/19/19 03:10 Assessment/Plan Assessment/Plan s/p elective laparoscopic right hemicolectomy on 12/02 s/p repeat surgery secondary to intra abdominal hemorrhage 12/05 s/p repeat surgery 12/06 secondary to intra abdominal hemorrhage (exploratory laparotomy, ligation mesenteric vessel, splenectomy.) Acute respiratory failure with pulmonary edema and worsening hypoxia -Daily sedation vacations. -Bumex -echocardiogram -- EF 60-65% -Pt is intubated on vent -Peep 14 and pt is very edematous. Bumex is ordered. -Propofol and fentanyl gtt - Duoneb Q4hrs -Labs and radiology reviewed Acute severe sepsis with septic shock -Currently on Zosyn, vanco, and Eraxis - Solucortef -- d/c Hypernatremia -Pharmacy to adjust TPN Malnutrition -Pt is currently on TPN per Dr. Gerald Irwin -Bumex - Albumin Acute Afib- resolved Nonanion gapped metabolic acidosis - resolved Respiratory Acidosis s/p Bleeding -- Hb has now stabilized -Dr. Duarte is aware - Pt is now s/p 12 units of PRBC. s/p 6units FFP and 2 unitsPlatelets Acute renal failure - Monitor close -Metabolic acidosis has improved. Cr appears stable. K+ is stable - IVF is held - Patient is edematous in bilateral UE/LE and scotum Colon cancer s/p resection CHRIS TORRES DO Dec 19, 2019 05:02
[2019-12-19] MEDS: PIPERACILLIN/TAZOBACTAM (BULK) 4.5 GM in NS (IVPB) 100 ML IV SCH (05:55)
[2019-12-19 06:01] LABS: ALBUMIN 2.9 GM/DL (3.2-4.5); BILIRUBIN,TOTAL 1.9 MG/DL (0.1-1.0); CALCIUM 7.8 MG/DL (8.5-10.1); CREATININE SERUM 2.26 MG/DL (0.60-1.30); POTASSIUM 3.9 MMOL/L (3.6-5.0); TOTAL PROTEIN 5.1 GM/DL (6.4-8.2)
[2019-12-19] MEDS: MAGNESIUM 1 GM/100 ML IVPB 100 ML IV SCH (06:51)
[2019-12-19] MEDS: POTASSIUM CL 10MEQ/50ML IVPB 50 ML IV SCH (06:51)
[2019-12-19] MEDS: KCL 20 MEQ TAB (K-DUR) PO SCH (06:51)
[2019-12-19] MEDS: MEROPENEM 500 MG/SWFI 10 ML IV PUSH IV SCH ×6 (06:53→21:48)
[2019-12-19] MEDS: BROMOCRIPTINE 2.5 MG PO SCH ×2 (07:47→15:13)
[2019-12-19] MEDS: NOREPINEPHRINE 8 MG in NS (IVPB) 250 ML IV SCH ×3 (07:48→21:46)
[2019-12-19] MEDS: SENNA W/DOCUSATE (SENOKOT S) TABLET PO SCH (07:48)
[2019-12-19] MEDS: PANTOPRAZOLE 40 MG (PROTONIX) VIAL IV SCH ×2 (08:09→21:48)
[2019-12-19] MEDS: ARTIFICIAL TEARS OINT (LACRI-LUBE) 3.5 GM TUBE OU SCH ×2 (08:10→21:48)
[2019-12-19] MEDS: BUMETANIDE 1 MG/4 ML (BUMEX) VIAL IV SCH ×2 (08:10→19:58)
--- NOTE | 2019-12-19 08:43 | Diagnostic Imaging Report ---
INDICATION: Ventilated patient. COMPARISON: 12/18/2019. FINDINGS: A single frontal radiographic view of the chest was obtained and again shows the indwelling endotracheal tube with the tip at the clavicular heads. The nasogastric tube extends inferiorly beyond the [id number]. A left subclavian central venous catheter is seen with the tip in the SVC. The cardiac silhouette and pulmonary vasculature are stable. The lungs remain clear. There is no focal consolidation, large effusion, or pneumothorax. The osseous structures show no acute abnormalities. IMPRESSION: Stable exam of the chest with lines and tubes as above. Dictated by: Dictated on workstation # [id number]
[2019-12-19] MEDS ORDERED: dilTIAZem DRIP PRE-MIX 125 ML IV ONE (09:08)
[2019-12-19] MEDS ORDERED: DIGOXIN 0.25 MG/ML (LANOXIN) 2 ML AMP ONE (09:10)
[2019-12-19] MEDS ORDERED: dilTIAZem DRIP PRE-MIX 125 ML IV SCH (09:15)
--- NOTE | 2019-12-19 09:24 | NUR ---
PATIENT HR WENT INTO AFIB RVR HR 160'S-170'S, CONFIRMED BY EKG. DR. PASTOR NOTIFIED, NEW ORDERS RECEIVED TO CONSULT CARDIOLOGY ET START CARDIZEM DRIP AT THIS TIME. DR. MOTT ON FLOOR, NOTIFIED OF CONSULT. REPORT GIVEN TO DR. MOTT, NEW ORDERS RECEIVED FOR CARDIZEM BOLUS [address]EM DRIP [address]. PASTOR ORDERED AT 10MG ET ADMINISTER 0.125 OF DIGOXIN, ORDERS READ BACK TO PHYSICIAN, CONFIRMED. MEDICATIONS ADMINISTERED. HR CURRENTLY 140.
[2019-12-19] MEDS ORDERED: DIGOXIN 0.25 MG/ML (LANOXIN) 2 ML AMP IV SCH (09:30)
--- NOTE | 2019-12-19 09:32 | Progress Note - Hospitalist ---
Subjective HPI/CC On Admission Date Seen by Provider: Dec 19, 2019 Time Seen by Provider: 09:27 Pt is a 69yoCM with a PMH of HTN and COPD who was admitted for hemicolectomy due to colon cancer. He underwent surgery yesterday and I am consulted for medical management. He is hard of hearing but what he was able to answer he states he's hungry but having pain. He is using his CENTERP[employer]CHER and states it help. Otherwise he has not complaints. Subjective/Events-last exam Pt remains intubated and sedated. Weaning oxygen but PEEP still at 14. Objective Exam Vital Signs Vital Signs Date Time Temp Pulse Resp B/P (MAP) Pulse Ox O2 Delivery O2 Flow Rate FiO2 12/19/19 08:05 38.0 12/19/19 08:00 89 Mechanical Ventilator 50 12/19/19 06:58 89 144/90 12/19/19 06:41 30 12/19/19 06:27 50.00 Capillary Refill : Less Than 3 SecondsLess Than 3 Seconds General Appearance: Chronically ill, Other (intubated/sedated) Respiratory: Decreased Breath Sounds, Other (intubated) Cardiovascular: No Murmur, Tachycardia (regular rate) Gastrointestinal: Normal Bowel Sounds, Soft Extremity: Normal Capillary Refill, No Pedal Edema Neurologic/Psychiatric: Other (sedated, appears comfortable) Results/Procedures Lab Laboratory Tests 12/18/19 14:00 12/19/19 03:10 Patient resulted labs reviewed. Imaging: Reviewed Imaging Report Assessment/Plan Assessment and Plan Assess & Plan/Chief Complaint Acute blood loss anemia Hemorrhagic shock, resolved Postoperative anemia Status post hemicolectomy Septic shock Secondary bacterial peritonitis Fluid overload Acute kidney injury Likely ATN Shock liver Lactic acidosis Poor prognosis hemoglobinup significantly today still off pressors - Continue postoperative management per primary - Creatinine stable - Continue Bumex - TPN for nutrition Pneumonia Acute respiratory failure with hypoxia Endotracheally intubated - Pulm consulted, appreciate recs Zosyn switched to Merrem - Triglycerides back down Atrial fibrillation with RVR A. fib with RVR resolved, transitioned off of amiodarone DVT PPX: SCDs- lovenox held for bleeding Critical Care Critically Ill Patient Clinical Quality Measures DVT/VTE Risk/Contraindication: Risk Factor Score Per Nursin RFS Level Per Nursing on Admit: 4+=Very High DAYA PASTOR MD Dec 19, 2019 09:32
[2019-12-19 10:55] LABS: ABG BASE EXCESS -2.7 MMOL/L (-2.5-2.5); ABG OXYGEN SATURATION 81 % (94-100); ABG PCO2 58 MMHG (35-45); ABG PO2 59 MMHG (79-93); ABG TCO2 25.4 MMOL/L (21.0-31.0)
[2019-12-19 11:03] LABS: ABG PH 7.24 (7.37-7.43)
[2019-12-19 11:04] LABS: ALLENS TEST YES-POS; INSPIRED O2 50%; PATIENT TEMP 37.6; VENTILATOR NO
--- NOTE | 2019-12-19 11:10 | NUR ---
AT THIS TIME THIS RN EMPTIES PATIENTS DRAIN #1, APPEARANCE OF DRAIN WAS BROWN, WITH FOUL ODOR, THIN CONSISTENCY. NOTIFIED DR. CLAY IN CHANGE OF APPEARANCE IN FLUID FROM DRAIN ET SMELL.
--- NOTE | 2019-12-19 11:12 | NUR ---
DR. TORRES NOTIFIED OF ABG RESULTS PER RT DANILO, VENT ORDER CHANGES GIVEN.
--- NOTE | 2019-12-19 11:20 | NUR ---
DR. MOTT PAGE R/T PATIENTS BLOOD PRESSURE DROPPING WHILE ON CARDIZEM. BLOOD PRESSURE 70'S-80'S SYSTOLIC. CARDIZEM STOPPED. RECEIVED NEW ORDERS FOR AMIODARONE BOLUS ET GTT PER PROTOCOL, ET ANOTHER ADMINISTRATION OF DIGOXIN 0.125, ET D/C CARDIZEM. EMAR UPDATED.
[2019-12-19] MEDS ORDERED: DIGOXIN 0.25 MG/ML (LANOXIN) 2 ML AMP IV NR (11:30)
[2019-12-19] MEDS ORDERED: AMIODARONE INJECTION 150 MG in D5W 100 ML IVPB 100 ML IV ONE (11:30)
--- NOTE | 2019-12-19 11:30 | NUR ---
Pastoral care visit w/pts son, in from [facility]. Son shared some about pt and seems to be coping well with the situation.
--- NOTE | 2019-12-19 11:38 | NUR ---
NOTIFIED DR. CLAY REGARDING 400 OUTPUT FROM PATIENTS DRAIN SINCE LAST COMMUNICATION OF 30 MINUTES AGO.
--- NOTE | 2019-12-19 11:45 | NUR ---
CM/SS follow up. The patient is sedated and on vent. CM/SS contacted the patient's next of kin and son Eldon this a.m. to verify that he was in town from [place] and coming to the hospital to visit patient. He stated he would be here soon and this sw planned to meet with Eldon at 9:30 a.m. CM/SS went in to visit with Eldon. The patient's primary care nurse Connie was giving an update on status and condition. CM/SS visited with patient regarding different options for care. Eldon reports that he has spoken with Dr. Daurte about his wishes for code status and measures taken. It is Eldon's understanding that Dr. Duarte would like to see if patient has progress at the end of this week. He reports that he has a hand written letter from the patient stating his wishes for code status and treatment. CM/SS discussed with Eldon that Dr. Duarte will be the primary physician to discuss code status and wishes for treatment. He verbalized understanding. CM/SS informed Eldon that a [facility] facility is Dr. Heard and has not been discussed or suggested at this time but this sw wanted family to have an understanding of options available. Eldon verbalized understanding. CM/SS will continue to follow with patient for discharge planning.
[2019-12-19] MEDS: AMIODARONE INJECTION 450 MG in D5W IV SOLUTION (EXCEL) 250 ML IV SCH ×2 (12:01→19:52)
--- NOTE | 2019-12-19 12:06 | NUR ---
NOTIFIED DR. PASTOR TO PATIENT CHANGED ET COMMUNICATIONS WITH OTHER PHYSICIANS.
--- NOTE | 2019-12-19 12:19 | NUR ---
NOTIFIED DR. CLAY PATIENT IS REQUIRING LEVO AT THIS TIME.
[2019-12-19] MEDS: fentaNYL INJECTION 1,250 MCG in NS (IVPB) 250 ML IV SCH ×2 (12:46→23:06)
--- NOTE | 2019-12-19 13:03 | NUR ---
TPN: TPN CONTINUES AT 66 ML/HR PROVIDING 1250 KCAL WITH 100 GM PROTEIN. PROPOFOL AT 16.34 ML/HR PROVIDING 431 KCAL LIPIDS FOR A TOTAL OF 1682 KCAL. NO SODIUM OR CHLORIDE IN TPN. 0.9%NS 250 ML BEING USED WITH PHENYLEPHRINE DRIP. WILL LEAVE TPN IS WITH SLIGHT INCREASE IN POTASSIUM.
--- NOTE | 2019-12-19 13:07 | NUR ---
THIS RN SPOKE WITH DR. CLAY AT THIS TIME, REGARDING CONTINUED OUTPUT FROM FRANK DRAIN 1. DR CARO. STATED HE WOULD BE UP TO VISIT WITH FAMILY IN APPROXIMATELY 1 HOUR.
--- NOTE | 2019-12-19 14:11 | NUR ---
RD FOLLOW-UP Note pt is currently NPO, and receiving TPN, which provides 1250 kcal and 100 g Pro. Pt also receiving propofol, which provides 431 kcal. Total provides 1681 kcal (16 kcal/kg) and 100 g Pro (0.9 g Pro/kg). Current TPN regimen is appropriate at this time to meet nutritional needs. Will continue to follow and reassess as pt needs, intake, and status change. Duncan Blackburn MS, RD, LD [phone]
--- NOTE | 2019-12-19 14:41 | NUR ---
DR. CLAY IN ROOM AT THIS TIME VISITING WITH PATIENT SON.
--- NOTE | 2019-12-19 16:08 | Progress Note ---
Subjective Date Seen by a Provider: Dec 19, 2019 Time Seen by a Provider: 15:00 Subjective/Events-last exam clinically worsening. worsening respiratory status and possible PE. now has anastomotic leak. back on vasopressors. Objective Exam Vital Signs Date Time Temp Pulse Resp B/P (MAP) Pulse Ox O2 Delivery O2 Flow Rate FiO2 12/19/19 15:28 141 95/75 12/19/19 15:00 138 30 94/63 (73) 91 Mechanical Ventilator 50.00 12/19/19 14:21 131 26 94 100 12/19/19 14:00 128 26 85/67 (73) 94 Mechanical Ventilator 50.00 12/19/19 13:00 124 84/71 (75) 91 Mechanical Ventilator 50.00 12/19/19 12:57 125 12/19/19 12:26 90 Mechanical Ventilator 70 12/19/19 12:08 35.3 12/19/19 12:00 115 84/48 (60) 88 Mechanical Ventilator 50.00 12/19/19 11:42 132 12/19/19 11:12 128 28 90 70 12/19/19 11:00 135 75/59 (64) 88 Mechanical Ventilator 50.00 12/19/19 10:34 37.6 12/19/19 10:01 130 26 90 50 12/19/19 10:00 130 100/78 (85) 97 Mechanical Ventilator 50.00 12/19/19 09:00 152 166/119 (135) 78 Mechanical Ventilator 50.00 12/19/19 08:05 38.0 12/19/19 08:00 89 Mechanical Ventilator 50 12/19/19 08:00 104 26 166/90 (115) 89 Mechanical Ventilator 50.00 12/19/19 07:00 89 26 151/91 (111) 91 Mechanical Ventilator 50.00 12/19/19 06:58 89 144/90 12/19/19 06:41 86 12/19/19 06:41 90 30 92 50 12/19/19 06:27 80 31 93 Mechanical Ventilator 50.00 12/19/19 06:00 80 28 131/80 (97) 95 Mechanical Ventilator 60.00 12/19/19 05:00 81 30 136/73 (94) 95 Mechanical Ventilator 60.00 12/19/19 04:00 80 26 132/75 (94) 96 Mechanical Ventilator 60.00 12/19/19 04:00 36.4 12/19/19 04:00 93 Mechanical Ventilator 60 12/19/19 03:48 80 140/77 12/19/19 03:43 60.00 12/19/19 03:00 77 27 134/83 (100) 93 Mechanical Ventilator 50.00 12/19/19 02:21 75 29 96 70 12/19/19 02:00 70 26 137/74 (95) 99 Mechanical Ventilator 50.00 12/19/19 01:00 70 27 131/72 (91) 97 Mechanical Ventilator 70.00 12/19/19 01:00 70 12/19/19 00:27 80 130/70 12/19/19 00:00 68 21 121/68 (85) 96 Mechanical Ventilator 70.00 12/19/19 00:00 93 Mechanical Ventilator 50 12/18/19 23:00 80 26 130/70 (90) 95 Mechanical Ventilator 70.00 12/18/19 22:18 85 128/67 12/18/19 22:00 111 28 159/75 (103) 89 Mechanical Ventilator 70.00 12/18/19 21:52 106 24 90 Mechanical Ventilator 70.00 12/18/19 21:48 70 12/18/19 21:41 101 27 92 50 12/18/19 21:00 68 26 123/69 (87) 96 Mechanical Ventilator 50.00 12/18/19 20:00 Mechanical Ventilator 70 12/18/19 20:00 67 25 121/71 (88) 96 Mechanical Ventilator 50.00 12/18/19 20:00 36.8 12/18/19 19:00 63 12/18/19 19:00 63 26 123/65 (84) 96 Mechanical Ventilator 50.00 12/18/19 18:22 65 26 96 50 12/18/19 18:00 69 25 125/65 (85) 96 Mechanical Ventilator 50.00 12/18/19 17:24 76 154/78 12/18/19 17:00 144/79 (100) Mechanical Ventilator 50.00 I & O 12/19/19 07:00 Intake Total 2838 ml Output Total 3820 ml Balance -982 ml Capillary Refill : Less Than 3 SecondsLess Than 3 Seconds General Appearance: Chronically ill HEENT: Normal ENT Inspection Neck: Supple Respiratory: Decreased Breath Sounds, Rhonci, Wheezing Cardiovascular: Regular Rate, Rhythm Gastrointestinal: soft, distended Extremity: Slow Capillary Refill Neurologic/Psychiatric: Other (vent/sedated) Skin: Normal Color Lymphatic: No Adenopathy Results Lab Laboratory Tests 12/18/19 17:39: Glucometer 172H 12/18/19 22:53: Glucometer 137H 12/19/19 00:14: Glucometer 135H 12/19/19 03:10: White Blood Count 21.1H, Red Blood Count 2.81L, Hemoglobin 8.4L, Hematocrit 26L, Mean Corpuscular Volume 92, Mean Corpuscular Hemoglobin 30, Mean Corpuscular Hemoglobin Concent 32, Red Cell Distribution Width 17.8H, Platelet Count 144, Mean Platelet Volume 11.7H, Neutrophils (%) (Auto) 70, Lymphocytes (%) (Auto) 27, Monocytes (%) (Auto) 1, Eosinophils (%) (Auto) 1, Basophils (%) (Auto) 0, Neutrophils # (Auto) 14.8H, Lymphocytes # (Auto) 5.6H, Monocytes # (Auto) 0.3, Eosinophils # (Auto) 0.3, Basophils # (Auto) 0.1, Blood Gas Puncture Site RIGHT RADIAL, Blood Gas Patient Temperature 36.8, Arterial Blood pH 7.38, Arterial Blood Partial Pressure CO2 42, Arterial Blood Partial Pressure O2 63L, Arterial Blood HCO3 24, Arterial Blood Total CO2 25.5, Arterial Blood Oxygen Saturation 92L, Arterial Blood Base Excess -0.2, Luke Test YES-POS, Blood Gas Ventilator Setting YES, Blood Gas Inspired Oxygen 50%, Sodium Level 146H, Potassium Level 3.9, Chloride Level 112H, Carbon Dioxide Level 21, Anion Gap 13, Blood Urea Nitrogen 79H, Creatinine 2.26H, Estimat Glomerular Filtration Rate 29, BUN/Creatinine Ratio 35, Glucose Level 114H, Calcium Level 7.8L, Corrected Calcium 8.7, Phosphorus Level 4.2, Magnesium Level 2.4, Total Bilirubin 1.9H, Aspartate Amino Transf (AST/SGOT) 122H, Alanine Aminotransferase (ALT/SGPT) 115H , Alkaline Phosphatase 52, Total Protein 5.1L, Albumin 2.9L, Triglycerides Level 143, Procalcitonin 4.22H 12/19/19 09:09: Glucometer 95 12/19/19 10:48: Blood Gas Puncture Site RT RAD, Blood Gas Patient Temperature 37.6, Arterial Blood pH 7.24*L, Arterial Blood Partial Pressure CO2 58H, Arterial Blood Partial Pressure O2 59L, Arterial Blood HCO3 24, Arterial Blood Total CO2 25.4, Arterial Blood Oxygen Saturation 81L, Arterial Blood Base Excess -2.7L, Luke Test YES- POS, Blood Gas Ventilator Setting NO, Blood Gas Inspired Oxygen 50% 12/19/19 12:01: Glucometer 122H Microbiology 12/17/19 Gram Stain - Final, Resulted 12/17/19 Body Fluid Culture - Preliminary, Resulted Enterobacter cloacae Pseudomonas aeruginosa 12/14/19 Blood Culture - Preliminary, Resulted No growth 12/12/19 Gram Stain - Final, Complete 12/12/19 Sputum Culture - Final, Complete Usual upper respiratory chris Assessment/Plan Assessment/Plan Assess & Plan/Chief Complaint s/p lap right hemicolectomy with intraperitoneal hemorrhage x2 and s/p expl lap. patient remains critically ill however labs/abg/vent improved. patients mother in full understanding of situation. expressed no heroic measures and in no improvement in next several days may make CC only. will continue current critical management for now and continue to communicate with family. son next of kin and requests full code. lives in [facility] and in transit to visit. worsening overall condition and now anastomotic leak. very poor prognosis. had in-depth conversation with patients son and prognosis. he is in full understanding. patient now DNR status. son will also reach out to other family members then likely make CC. Clinical Quality Measures DVT/VTE Risk/Contraindication: Risk Factor Score Per Nursin RFS Level Per Nursing on Admit: 4+=Very High KADIE CLAY MD Dec 19, 2019 16:08
--- NOTE | 2019-12-19 16:34 | NUR ---
CM/SS update: Patient's son Eldon contacted this sw and stated that patient will be going on comfort care tomorrow at 0900. He had questions regarding homes. CM/SS contacted the Palliative care nurse to help coordinate and speak with the patient's son. She verbalized understanding and states she will call. CM/SS will continue to follow.
[2019-12-19] MEDS ORDERED: POTASSIUM ACETATE IV SCH ×8 (17:00)
[2019-12-19] MEDS ORDERED: POTASSIUM PHOSPHATE IV SCH ×8 (17:00)
[2019-12-19] MEDS ORDERED: [UNRECOGNIZED DRUG - OTHER] IV SCH ×8 (17:00)
--- NOTE | 2019-12-19 17:05 | Consultation-Cardiology ---
HPI-Cardiology Cardiology Consultation: Date of Consultation 12/19/19 Time Seen by a Provider: 09:30 Date of Admission Attending Physician Kadie Duarte MD Admitting Physician Christophe Smart MD Consulting Physician MAIA MOTT MD, MA, FACP, FACC, [facility] [place], CCDS Physician requesting consult: Dr Huynh HPI: Chief Complaint: Reason for consultation: A Fib with RVR HPI 69 yo man who has been through multiple abdominal surgeries during this hospitalization. He has had PAF with RVR. This had been treated with iv amio darone by the ICU service and NSR restored. Amio d/c'd and today he has gone back into A Fib with RVR and Dr Huynh has requested a Cardiology consult. He is intubated, sedated and on mech vent and not able to provide any history Review of Systems-Cardiology Review of Systems Constitutional: other (He is intubated, sedated and on mech vent and not able t o communicate) BNQ-Lwusdy-Qodcwn Hx Patient Social History Alcohol Use: Regular Use Recreational Drug Use: No Smoking Status: Current Everyday Smoker Type Used: Cigarettes 2nd Hand Smoke Exposure: No Recent Foreign Travel: No Recent Infectious Disease Expo: No Physical Abuse Screen: No Sexual Abuse: No Immunizations Up To Date Date of Influenza Vaccine: Jan 23, 2019 Past Medical History PMH As described under Assessment. Family Medical History Family Medical History: Family history cannot be obtained from the patient at the time of this note Family History: Patient reports no known family medical history. Allergies and Home Medications Allergies Coded Allergies: No Known Allergies (Unverified Allergy, Unknown, 10/03/19) Home Medications Albuterol Sulfate 1 Puff Puff, 2 PUFF IH BID, (Reported) 1 PUFF = 90 MCG Bromocriptine Mesylate 2.5 Mg Tablet, 2.5 MG PO BID, (Reported) Carvedilol 12.5 Mg Tablet, 6.25 MG PO BID, (Reported) take 1/2 of 12.5mg tab Doxazosin Mesylate 2 Mg Tablet, 2 MG PO HS, (Reported) Fluticasone/Umeclidin/Vilanter 1 Each Blst.w.dev, 1 EACH IH DAILY@1500, (Reported) Formoterol Fumarate 20 Mcg/2 Ml Vial.neb, 20 MCG IH BID, (Reported) Hydrocodone/Acetaminophen 1 Each Tablet, 1 EACH PO Q4H Prescribed by: KADIE DUARTE on 12/07/19 7867 Patient Home Medication List Home Medication List Reviewed: Yes Physical Exam-Cardiology Physical Exam Vital Signs/I&O 12/19/19 12/19/19 12/19/19 12/19/19 06:00 06:27 06:41 06:41 Pulse 80 80 90 86 Resp 28 31 30 B/P (MAP) 131/80 (97) Pulse Ox 95 93 92 O2 Delivery Mechanical Ventilator Mechanical Ventilator O2 Flow Rate 60.00 50.00 FiO2 50 12/19/19 12/19/19 12/19/19 12/19/19 06:58 07:00 08:00 08:00 Pulse 89 89 104 Resp 26 B/P (MAP) 144/90 151/91 (111) 166/90 (115) Pulse Ox 91 89 89 O2 Delivery Mechanical Ventilator Mechanical Ventilator Mechanical Ventilator O2 Flow Rate 50.00 50.00 FiO2 50 12/19/19 12/19/19 12/19/19 12/19/19 08:05 09:00 10:00 10:01 Temp 38.0 Pulse 152 130 130 Resp 26 B/P (MAP) 166/119 (135) 100/78 (85) Pulse Ox 78 97 90 O2 Delivery Mechanical Ventilator Mechanical Ventilator O2 Flow Rate 50.00 50.00 FiO2 50 12/19/19 12/19/19 12/19/19 12/19/19 10:34 11:00 11:12 11:42 Temp 37.6 Pulse 135 128 132 Resp 28 B/P (MAP) 75/59 (64) Pulse Ox 88 90 O2 Delivery Mechanical Ventilator O2 Flow Rate 50.00 FiO2 70 12/19/19 12/19/19 12/19/19 12/19/19 12:00 12:08 12:26 12:57 Temp 35.3 Pulse 115 125 B/P (MAP) 84/48 (60) Pulse Ox 88 90 O2 Delivery Mechanical Ventilator Mechanical Ventilator O2 Flow Rate 50.00 FiO2 70 12/19/19 12/19/19 12/19/19 12/19/19 13:00 14:00 14:21 15:00 Pulse 124 128 131 138 Resp 26 26 30 B/P (MAP) 84/71 (75) 85/67 (73) 94/63 (73) Pulse Ox 91 94 94 91 O2 Delivery Mechanical Ventilator Mechanical Ventilator Mechanical Ventilator O2 Flow Rate 50.00 50.00 50.00 FiO2 100 12/19/19 12/19/19 15:28 16:00 Pulse 141 124 Resp 22 B/P (MAP) 95/75 99/67 (78) Pulse Ox 92 O2 Delivery Mechanical Ventilator O2 Flow Rate 50.00 12/19/19 00:00 Intake Total 1958 ml Output Total 1620 ml Balance 338 ml Capillary Refill : Less Than 3 SecondsLess Than 3 Seconds Constitutional: well-developed, well-nourished, other (intubated, sedated, on mech vent) HEENT: other (intubated, sedated, on mech vent) Neck: carotid pulses are 2 + bilaterally Respiratory: other (intubated, sedated, on mech vent, fair to good bilat air entry, prolonged exp, air entry diminished at the bases) Cardiovascular: irregularly irregular, tachycardia, S1 and S2, systolic murmur (soft MARCIN at card base) Gastrointestinal: other (post-surgical state, we did not attempt palpation, bs not audile) Extremities: swelling (mild, bilateral leg edema); No clubbing, No cyanosis Neurologic/Psychiatric: other (intubated, sedated, on mech vent, cannot cooperate with any neuro exam) Skin: No rash on exposed areas, No ulcerations on exposed areas Data Review Labs Laboratory Tests 12/18/19 17:39: Glucometer 172H 12/18/19 22:53: Glucometer 137H 12/19/19 00:14: Glucometer 135H 12/19/19 03:10: White Blood Count 21.1H, Red Blood Count 2.81L, Hemoglobin 8.4L, Hematocrit 26L, Mean Corpuscular Volume 92, Mean Corpuscular Hemoglobin 30, Mean Corpuscular Hemoglobin Concent 32, Red Cell Distribution Width 17.8H, Platelet Count 144, Mean Platelet Volume 11.7H, Neutrophils (%) (Auto) 70, Lymphocytes (%) (Auto) 27, Monocytes (%) (Auto) 1, Eosinophils (%) (Auto) 1, Basophils (%) (Auto) 0, Neutrophils # (Auto) 14.8H, Lymphocytes # (Auto) 5.6H, Monocytes # (Auto) 0.3, Eosinophils # (Auto) 0.3, Basophils # (Auto) 0.1, Blood Gas Puncture Site RIGHT RADIAL, Blood Gas Patient Temperature 36.8, Arterial Blood pH 7.38, Arterial Blood Partial Pressure CO2 42, Arterial Blood Partial Pressure O2 63L, Arterial Blood HCO3 24, Arterial Blood Total CO2 25.5, Arterial Blood Oxygen Saturation 92L, Arterial Blood Base Excess -0.2, Luke Test YES-POS, Blood Gas Ventilator Setting YES, Blood Gas Inspired Oxygen 50%, Sodium Level 146H, Potassium Level 3.9, Chloride Level 112H, Carbon Dioxide Level 21, Anion Gap 13, Blood Urea Nitrogen 79H, Creatinine 2.26H, Estimat Glomerular Filtration Rate 29, BUN/Creatinine Ratio 35, Glucose Level 114H, Calcium Level 7.8L, Corrected Calcium 8.7, Phosphorus Level 4.2, Magnesium Level 2.4, Total Bilirubin 1.9H, Aspartate Amino Transf (AST/SGOT) 122H, Alanine Aminotransferase (ALT/SGPT) 115H , Alkaline Phosphatase 52, Total Protein 5.1L, Albumin 2.9L, Triglycerides Level 143, Procalcitonin 4.22H 12/19/19 09:09: Glucometer 95 12/19/19 10:48: Blood Gas Puncture Site RT RAD, Blood Gas Patient Temperature 37.6, Arterial Blood pH 7.24*L, Arterial Blood Partial Pressure CO2 58H, Arterial Blood Partial Pressure O2 59L, Arterial Blood HCO3 24, Arterial Blood Total CO2 25.4, Arterial Blood Oxygen Saturation 81L, Arterial Blood Base Excess -2.7L, Luke Test YES- POS, Blood Gas Ventilator Setting NO, Blood Gas Inspired Oxygen 50% 12/19/19 12:01: Glucometer 122H Microbiology 12/17/19 Gram Stain - Final, Resulted 12/17/19 Body Fluid Culture - Preliminary, Resulted Enterobacter cloacae Pseudomonas aeruginosa Susceptibility To Follow 12/14/19 Blood Culture - Preliminary, Resulted No growth 12/12/19 Gram Stain - Final, Complete 12/12/19 Sputum Culture - Final, Complete Usual upper respiratory chris Laboratory Tests 12/18/19 02:35 12/18/19 05:55 12/18/19 14:00 12/19/19 03:10 A/P-Cardiology Assessment/Admission Diagnosis PAF with RVR S/p lap right hemicolectomy with intraperitoneal hemorrhage x 2 and s/p expl lap H'hagic shock with FLACO-3 (ATN) and ac hepatic injury Pneumonia and ac resp failure Echo 12/18/19: LVEF 60-65%, no RWMA, PASP 60-65 mmHg Hypernatremia likely due to TPN Discussion and Recomendations * iv dilt for rate control (if bp tolerates) * If dilt not successful, then repeat amio * Low dose dig for rate control. Low dose because of renal failure * Continue iv fluids * Monitor labs * Prognosis guarded Clinical Quality Measures DVT/VTE Risk/Contraindication: Risk Factor Score Per Nursin RFS Level Per Nursing on Admit: 4+=Very High MAIA MOTT MD FACP FAC CCDS Dec 19, 2019 17:05
[2019-12-20] VITALS (12 sets, daily range): BP systolic 110–127; BP diastolic 61–74
[2019-12-20] MEDS: VASOPRESSIN INJECTION 20 UNIT in NS (IVPB) 100 ML IV SCH ×2 (02:20→08:45)
[2019-12-20 02:42] LABS: HEMATOCRIT 32 % (40-54); HEMOGLOBIN 10.4 G/DL (13.3-17.7); MEAN CORPUSCULAR HEMOGLOBIN 30 PG (25-34); MEAN CORPUSCULAR HGB CONC 32 G/DL (32-36); MEAN CORPUSCULAR VOLUME 93 FL (80-99); MEAN PLATELET VOLUME 12.1 FL (7.4-10.4); PLATELET COUNT 201 10^3/uL (130-400); RED CELL DISTRIBUTION WIDTH 18.3 % (10.0-14.5)
[2019-12-20 02:54] LABS: ALBUMIN 2.3 GM/DL (3.2-4.5); POTASSIUM 5.5 MMOL/L (3.6-5.0)
[2019-12-20 02:55] LABS: CALCIUM 7.8 MG/DL (8.5-10.1)
[2019-12-20 02:56] LABS: TOTAL PROTEIN 4.5 GM/DL (6.4-8.2)
[2019-12-20 02:58] LABS: BILIRUBIN,TOTAL 2.4 MG/DL (0.1-1.0)
[2019-12-20 03:00] LABS: CREATININE SERUM 2.53 MG/DL (0.60-1.30); PHOSPHORUS 5.5 MG/DL (2.3-4.7)
[2019-12-20 03:03] LABS: MAGNESIUM 2.3 MG/DL (1.6-2.4)
[2019-12-20] MEDS: RT-ALBUTEROL/IPRATROPIUM 3 ML (DUONEB) VIAL INH SCH ×2 (03:13→06:53)
[2019-12-20] MEDS: AMIODARONE INJECTION 450 MG in D5W IV SOLUTION (EXCEL) 250 ML IV SCH (04:01)
[2019-12-20] MEDS: PROPOFOL DRIP (ICU) 100 ML IV SCH ×2 (04:02→07:49)
[2019-12-20 04:21] LABS: BASOPHILS # (AUTO) 0.1 10^3/uL (0.0-0.1); BASOPHILS % (AUTO) 0 % (0-10); HEMATOCRIT 32 % (40-54); HEMOGLOBIN 10.3 G/DL (13.3-17.7); MEAN CORPUSCULAR HEMOGLOBIN 30 PG (25-34); MEAN CORPUSCULAR HGB CONC 32 G/DL (32-36); MEAN CORPUSCULAR VOLUME 93 FL (80-99); MEAN PLATELET VOLUME 12.3 FL (7.4-10.4); PLATELET COUNT 209 10^3/uL (130-400); RED CELL DISTRIBUTION WIDTH 18.5 % (10.0-14.5)
[2019-12-20 04:22] LABS: ABG BASE EXCESS -2.6 MMOL/L (-2.5-2.5); ABG OXYGEN SATURATION 90 % (94-100); ABG PCO2 42 MMHG (35-45); ABG PO2 59 MMHG (79-93); ABG TCO2 23.8 MMOL/L (21.0-31.0)
[2019-12-20 04:27] LABS: WHITE BLOOD COUNT 30.7 10^3/uL (4.3-11.0)
[2019-12-20 04:34] LABS: ABG PH 7.34 (7.37-7.43); ALLENS TEST POSITIVE; INSPIRED O2 55; PATIENT TEMP 36.1; VENTILATOR YES
[2019-12-20 04:44] LABS: ALBUMIN 2.3 GM/DL (3.2-4.5); POTASSIUM 5.4 MMOL/L (3.6-5.0)
[2019-12-20 04:45] LABS: CALCIUM 7.8 MG/DL (8.5-10.1)
[2019-12-20 04:47] LABS: TOTAL PROTEIN 4.5 GM/DL (6.4-8.2)
[2019-12-20 04:48] LABS: BILIRUBIN,TOTAL 2.3 MG/DL (0.1-1.0)
[2019-12-20] MEDS: EPINEPHrine 1 MG INJECTION 2 MG in NS (IVPB) 248 ML IV SCH ×2 (04:48→06:00)
[2019-12-20 04:50] LABS: CREATININE SERUM 2.52 MG/DL (0.60-1.30); PHOSPHORUS 5.5 MG/DL (2.3-4.7)
[2019-12-20 04:54] LABS: MAGNESIUM 2.3 MG/DL (1.6-2.4)
[2019-12-20] MEDS: inSUlin ASPART (NovoLOG) 1 UNIT/0.01 ML (CHARGE PER UNIT) SQ SCH (05:08)
--- NOTE | 2019-12-20 05:11 | Pulmonary Progress Note ---
Subjective Time Seen by a Provider: 05:06 Subjective/Events-last exam PT is sedated on vent. Sepsis Event Evaluation Height, Weight, BMI Height: '" Weight: lbs. oz. kg; 27.93 BMI Method: Exam Exam Vital Signs Date Time Temp Pulse Resp B/P (MAP) Pulse Ox O2 Delivery O2 Flow Rate FiO2 12/20/19 04:02 85 125/74 12/20/19 04:00 84 22 125/74 (91) 95 Mechanical Ventilator 60.00 12/20/19 04:00 94 Mechanical Ventilator 60 12/20/19 03:16 80 30 96 60 12/20/19 03:00 81 21 127/70 (89) 96 Mechanical Ventilator 60.00 12/20/19 02:00 79 27 124/71 (88) 96 Mechanical Ventilator 60.00 12/20/19 01:00 80 27 123/72 (89) 95 Mechanical Ventilator 60.00 12/20/19 01:00 81 12/20/19 00:00 118 27 127/73 (91) 95 Mechanical Ventilator 60.00 12/20/19 00:00 94 Mechanical Ventilator 60 12/19/19 23:42 124 106/74 12/19/19 23:41 37.1 12/19/19 23:00 124 27 106/78 (87) 94 Mechanical Ventilator 60.00 12/19/19 22:32 122 28 98 65 12/19/19 22:31 Mechanical Ventilator 60.00 12/19/19 22:00 125 23 107/75 (86) 96 Mechanical Ventilator 65.00 12/19/19 21:00 122 28 107/84 (92) 96 Mechanical Ventilator 65.00 12/19/19 20:00 113 23 106/71 (83) 96 Mechanical Ventilator 65.00 12/19/19 20:00 94 Mechanical Ventilator 60 12/19/19 19:47 36.2 111 29 106/71 (83) 96 Mechanical Ventilator 65.00 12/19/19 19:36 122 93/75 12/19/19 19:11 131 28 95 70 12/19/19 19:00 123 12/19/19 19:00 123 34 104/69 (81) 95 Mechanical Ventilator 50.00 12/19/19 18:00 122 38 107/82 (90) 94 Mechanical Ventilator 50.00 12/19/19 17:00 141 35 94/73 (80) 94 Mechanical Ventilator 50.00 12/19/19 16:00 94 Mechanical Ventilator 70 12/19/19 16:00 124 22 99/67 (78) 92 Mechanical Ventilator 50.00 12/19/19 15:28 141 95/75 12/19/19 15:00 138 30 94/63 (73) 91 Mechanical Ventilator 50.00 12/19/19 14:21 131 26 94 100 12/19/19 14:00 128 26 85/67 (73) 94 Mechanical Ventilator 50.00 12/19/19 13:00 124 84/71 (75) 91 Mechanical Ventilator 50.00 12/19/19 12:57 125 12/19/19 12:26 90 Mechanical Ventilator 70 12/19/19 12:08 35.3 12/19/19 12:00 115 84/48 (60) 88 Mechanical Ventilator 50.00 12/19/19 11:42 132 12/19/19 11:12 128 28 90 70 12/19/19 11:00 135 75/59 (64) 88 Mechanical Ventilator 50.00 12/19/19 10:34 37.6 12/19/19 10:01 130 26 90 50 12/19/19 10:00 130 100/78 (85) 97 Mechanical Ventilator 50.00 12/19/19 09:00 152 166/119 (135) 78 Mechanical Ventilator 50.00 12/19/19 08:05 38.0 12/19/19 08:00 89 Mechanical Ventilator 50 12/19/19 08:00 104 26 166/90 (115) 89 Mechanical Ventilator 50.00 12/19/19 07:00 89 26 151/91 (111) 91 Mechanical Ventilator 50.00 12/19/19 06:58 89 144/90 12/19/19 06:41 86 12/19/19 06:41 90 30 92 50 12/19/19 06:27 80 31 93 Mechanical Ventilator 50.00 12/19/19 06:00 80 28 131/80 (97) 95 Mechanical Ventilator 60.00 I & O 12/20/19 07:00 Intake Total 3037 ml Output Total 3375 ml Balance -338 ml Height & Weight Height: '" Weight: lbs. oz. kg; 27.93 BMI Method: General Appearance: Chronically ill HEENT: Normal ENT Inspection Neck: Supple Respiratory: Decreased Breath Sounds, Rhonci, Wheezing Cardiovascular: Regular Rate, Rhythm Capillary Refill: Less Than 3 Seconds Gastrointestinal: soft, distended Extremity: Slow Capillary Refill Neurologic/Psychiatric: Other (vent/sedated) Skin: Normal Color Lymphatic: No Adenopathy Results Lab Laboratory Tests 12/18/19 05:55 12/18/19 14:00 12/19/19 03:10 12/20/19 02:35 12/20/19 04:13 Assessment/Plan Assessment/Plan s/p elective laparoscopic right hemicolectomy on 12/02 s/p repeat surgery secondary to intra abdominal hemorrhage 12/05 s/p repeat surgery 12/06 secondary to intra abdominal hemorrhage (exploratory laparotomy, ligation mesenteric vessel, splenectomy.) Acute respiratory failure with pulmonary edema and worsening hypoxia -Daily sedation vacations. -Bumex -echocardiogram -- EF 60-65% -Pt is intubated on vent -Peep 14 and pt is very edematous. Bumex is ordered. -Propofol and fentanyl gtt - Duoneb Q4hrs -Labs and radiology reviewed -Per RN there has been increasing amount of drainage from FRANK drain. Yesterday FRANK output became brown with foul odor. Dr. Duarte was notified. Pt has worsening leukocytosis this AM. -Dr. Duarte discussed with family yesterday and plan per RN is for comfort care only today around 9am. Acute severe sepsis/intrabdominal sepsis with septic shock -- worse this AM -Per Dr. Duarte pt now has anastomotic leak noted yesterday. -Merrem -Levophed worsening renal failure now pt has mild hyperkalemia and hyperphos -according to RN plan is for comfort care only today at 9am per family wishes. Hypernatremia - resolved Malnutrition -Pt is currently on TPN per Dr. Duarte Anasarca -Bumex - Albumin Acute Afib- resolved Nonanion gapped metabolic acidosis - resolved Respiratory Acidosis s/p Bleeding -- Hb has now stabilized Acute renal failure - Monitor close -Metabolic acidosis has improved. Cr appears stable. K+ is stable - IVF is held - Patient is edematous in bilateral UE/LE and scotum Colon cancer s/p resection CHRIS TORRES DO Dec 20, 2019 05:11
[2019-12-20] MEDS: NOREPINEPHRINE 8 MG in NS (IVPB) 250 ML IV SCH (05:28)
[2019-12-20] MEDS: MAGNESIUM 1 GM/100 ML IVPB 100 ML IV SCH (06:00)
[2019-12-20] MEDS: KCL 20 MEQ TAB (K-DUR) PO SCH (06:00)
[2019-12-20] MEDS: POTASSIUM CL 10MEQ/50ML IVPB 50 ML IV SCH (06:00)
[2019-12-20] MEDS: MEROPENEM 500 MG/SWFI 10 ML IV PUSH IV SCH ×2 (06:27)
--- NOTE | 2019-12-20 07:39 | NUR ---
MELISSA NOTIFIED OF PENDING EXTUBATION AND COMFORT CARE TODAY. MELISSA REFERRAL # [phone]. THIS RN INSTRUCTED TO CALL BACK PRIOR TO EXTUBATION.
[2019-12-20] MEDS: PANTOPRAZOLE 40 MG (PROTONIX) VIAL IV SCH (07:49)
[2019-12-20] MEDS: BUMETANIDE 1 MG/4 ML (BUMEX) VIAL IV SCH (07:49)
[2019-12-20] MEDS: BROMOCRIPTINE 2.5 MG PO SCH (07:49)
[2019-12-20] MEDS: ARTIFICIAL TEARS OINT (LACRI-LUBE) 3.5 GM TUBE OU SCH (07:49)
[2019-12-20] MEDS: SENNA W/DOCUSATE (SENOKOT S) TABLET PO SCH (07:50)
--- NOTE | 2019-12-20 08:25 | Diagnostic Imaging Report ---
INDICATION: Ventilated patient. COMPARISON: 12/19/2019 FINDINGS: Single frontal radiographic view of the chest was obtained and demonstrates indwelling endotracheal tube with tip at the clavicular heads. Gastric tube tip is obscured. Left subclavian central venous catheter is seen with tip in the SVC. Cardiac silhouette and pulmonary vasculature within normal limits. Lungs show hazy opacification of both lung bases suspicious for effusions. There is background COPD. No pneumothorax is seen. IMPRESSION: 1. Lines and tubes as above. 2. Findings suspicious for bibasilar effusions and atelectasis. Correlation with lateral view may be of benefit. Dictated by: Dictated on workstation # [id number]
--- NOTE | 2019-12-20 09:03 | NUR ---
PTS MOTHER AGNIESZKA AND SON HARRIS AT BEDSIDE. BOTH AGREE TO CONTINUE FORWARD W/ TERMINAL EXTUBATION AND PLACE PT ON COMFORT CARE THIS MORNING. THIS RN NOTIFIED DR TORRES, COMFORT CARE ORDERS RECEIVED. DR CLAY AND DR PASTOR ALSO NOTIFIED OF FAMILIES WISHES FOR COMFORT CARE AND AGREE W/ PLAN.
[2019-12-20] MEDS ORDERED: morphine INJ 10 MG/ML 1ML (SYR OR VIAL) IVP STA (09:05)
[2019-12-20] MEDS ORDERED: morphine INJ 4 MG/ML 1 ML (VIAL/SYRINGE) ONE (09:08)
--- NOTE | 2019-12-20 09:08 | NUR ---
PALLIATIVE CARE RN in to see patient and talk with the family regarding plan for transition to Comfort Measures today. I went through how we will proceed with the terminal extubation. The son and mother of the patient have no questions at this time.
[2019-12-20] MEDS ORDERED: LORazepam INJ 2 MG/ML (ATIVAN) VIAL ONE (09:09)
--- NOTE | 2019-12-20 09:09 | NUR ---
CM/SS follow up. CM/SS went with the Palliative Care RN Derek to visit with patient, Eldon, and Patient's mother before patient transitions on comfort care. Eldon and the patient's mother report they are ready to switch patient to comfort care at this time. Derek notified physician and nurse.
[2019-12-20] MEDS: morphine INJ 4 MG/ML 1 ML (VIAL/SYRINGE) IVP PRN ×2 (09:14→10:13)
[2019-12-20] MEDS ORDERED: LORazepam INJ 2 MG/ML (ATIVAN) VIAL IVP ONE (09:15)
[2019-12-20] MEDS ORDERED: LORazepam INJ 2 MG/ML (ATIVAN) VIAL IVP PRN (09:15)
--- NOTE | 2019-12-20 09:15 | NUR ---
Recvd page re: pt being extubated, family requesting a beef cattle grazier, Fr Oswald notified and will attend,
--- NOTE | 2019-12-20 09:22 | NUR ---
THIS RN CALLED [employer] BACK, ADVISED TO CALL BACK W/ TIME OF CARDIAC .
--- NOTE | 2019-12-20 09:25 | NUR ---
FAMILY REQUESTED FATHER DAVIED TO COME SEE PT. PASTORAL CARE NOTIFIED.
[2019-12-20] MEDS ORDERED: PROMETHAZINE INJ 25 MG/ML (PHENERGAN) AMP IVP PRN (09:30)
[2019-12-20] MEDS ORDERED: ARTIFICAL TEARS 0.4 ML UNIT DOSE (REFRESH PLUS) OU PRN (09:30)
[2019-12-20] MEDS ORDERED: SALIVA STIMULANT MOUTH SPRAY (BIOTENE) 1.5 OZ MM PRN (09:30)
[2019-12-20] MEDS ORDERED: BISACODYL 10 MG SUPP (DULCOLAX) PR PRN (09:30)
[2019-12-20] MEDS ORDERED: GLYCOPYRROLATE 0.2 MG/ML (ROBINUL) 2 ML VIAL IV PRN (09:30)
[2019-12-20] MEDS ORDERED: ACETAMINOPHEN 650 MG SUPP (TYLENOL) PR PRN (09:30)
[2019-12-20] MEDS ORDERED: ONDANSETRON 4 MG/2 ML (SDV) Z0FRAN IVP PRN (09:30)
[2019-12-20] MEDS ORDERED: RT-ALBUTEROL/IPRATROPIUM 3 ML (DUONEB) VIAL INH PRN (09:30)
--- NOTE | 2019-12-20 09:55 | NUR ---
PT TERMINALLY EXTUBATED AT THIS TIME. PT'S MOTHER, SON, AND FATHER DAVIED AT BEDSIDE.
--- NOTE | 2019-12-20 10:05 | NUR ---
Pastoral care visit w pts son and mother, Fr Oswald present.
--- NOTE | 2019-12-20 10:20 | NUR ---
PALLIATIVE CARE RN up to see patient and family now that he has been terminally extubated. He is having tachypneic respirations, rapid and shallow. This RN performed oral care and Mami RN has given PRN comfort medication for air hunger. Electronic Engraver in the room and giving prayers for patient. Will continue to follow and offer support as able.
--- NOTE | 2019-12-20 12:38 | NUR ---
PC RN in to check on patient. No changes noted. Continues to appear comfortable with tachy respirations around 24 BPM. His respirations are very shallow. Family remains at bedside at have no needs at this time.
--- NOTE | 2019-12-20 14:06 | NUR ---
PT HAS NO PERCEPTIBLE HEART BEAT AND RESPIRATIONS CEASED. CONFIRMED W/ JULISSA GARZA. PT'S FAMILY IS AT BEDSIDE. PASTORAL CARE PAGERuben, DR TORRES, DR CLAY, AND DR PASTOR ALL NOTIFIED. [employer] UPDATED, PT IS NOT A CANDIDATE FOR DONATION.
--- NOTE | 2019-12-20 14:15 | NUR ---
PT'S FAMILY LEFT, TOOK ALL OF PTS BELONGINGS HOME EXCEPT HEARING AIDS WHICH THEY DO NOT WANT.
--- NOTE | 2019-12-20 14:25 | NUR ---
Pt , I contacted pts son and mother, coping well.
--- NOTE | 2019-12-20 15:22 | NUR ---
POSTMORTEM CARE COMPLETE, ALL TUBES/LINES REMOVED.
--- NOTE | 2019-12-20 15:29 | NUR ---
[employer] NOTIFIED.
== END 2019-12-20 14:06 | disposition expired | DRG 329 ==
LOC: 4TH 12:14 → SURG 12:15 → 4TH 19:47 → ICU 12-13 09:28
PROVIDERS: ADMIT Surgery; ATTEND Surgery
PROC: 02HV33Z Insertion of Infusion Device into Superior Vena Cava, Percutaneous Approach (ICD-10-PCS; 2019-12-06)
PROC: 0DTF4ZZ Resection of Right Large Intestine, Percutaneous Endoscopic Approach (ICD-10-PCS; principal; 2019-12-06 16:13)
PROC: 04L Lower Arteries, Occlusion (ICD-10-PCS; 2019-12-13)
PROC: 07BP0ZZ Excision of Spleen, Open Approach (ICD-10-PCS; 2019-12-13)
PROC: 5A1955Z Respiratory Ventilation, Greater than 96 Consecutive Hours (ICD-10-PCS; 2019-12-13)
PROC: 0BH17EZ Insertion of Endotracheal Airway into Trachea, Via Natural or Artificial Opening (ICD-10-PCS; 2019-12-13)
DX: C18.3 Malignant neoplasm of hepatic flexure (principal); J18.9 Pneumonia, unspecified organism; N17.0 Acute kidney failure with tubular necrosis; J96.01 Acute respiratory failure with hypoxia; A41.9 Sepsis, unspecified organism; R65.21 Severe sepsis with septic shock; K65.2 Spontaneous bacterial peritonitis; E87.1 Hypo-osmolality and hyponatremia; E46 Unspecified protein-calorie malnutrition; E87.2 Acidosis; D62 Acute posthemorrhagic anemia; R57.8 Other shock; Z66 Do not resuscitate; I48.0 Paroxysmal atrial fibrillation; J43.9 Emphysema, unspecified; I10 Essential (primary) hypertension; F17.210 Nicotine dependence, cigarettes, uncomplicated; G47.33 Obstructive sleep apnea (adult) (pediatric); K59.00 Constipation, unspecified; K64.1 Second degree hemorrhoids; H91.90 Unspecified hearing loss, unspecified ear
CPT/HCPCS: 36415; 36600; 71045; 74178; 80048; 80053; 80076; 80202; 81000; 82570; 82805; 82962; 83605; 83735; 83880; 84100; 84134; 84145; 84478; 85007; 85014; 85018; 85025; 85027; 85379; 85384; 85610; 85730; 86850; 86900; 86901; 86920; 87040; 87070; 87077; 87081; 87186; 87205; 88309; 88341; 88342; 93005; 93306; 94002; 94003; 94640; 94664; 94760; 94799